=== PATIENT | female | born 1935 | race Caucasian/White ===

== ENCOUNTER 2017-12-19 00:54 | Inpatient (IN) | payer MEDICARE, BC ==
[~2017-12-19] VITALS: Ht 152.4 cm; Wt 65.4 kg
[2017-12-19 02:09] LABS: BASOPHILS % (AUTO) 0 % (0-1); EOSINOPHILS % (AUTO) 0 % (0-6); HEMATOCRIT 35.1 % (35.0-45.0); HEMOGLOBIN 12.1 g/dl (12.0-16.0); LYMPHOCYTES # (AUTO) 0.4 X10'3 (1.1-4.8); LYMPHOCYTES % (AUTO) 2.6 % (21-51); MEAN CORPUSCULAR HEMOGLOBIN 31.2 PG (27.0-31.0); MEAN CORPUSCULAR HGB CONC 34.4 % (33.0-36.5); MEAN CORPUSCULAR VOLUME 90.8 FL (78-98); MEAN PLATELET VOLUME 9.4 FL (7.4-10.4); MONOCYTES # (AUTO) 1.6 X10'3 (0-0.9); MONOCYTES % (AUTO) 9.4 % (2-12); NEUTROPHILS # (AUTO) 14.6 X10'3 (1.8-7.7); PLATELET COUNT 187 X10'3 (140-440); RED BLOOD COUNT 3.87 X10'6 (4.20-5.60); RED CELL DISTRIBUTION WIDTH 14.9 % (11.5-14.5); WHITE BLOOD COUNT 16.6 X10'3 (4.5-11.0)
[2017-12-19 02:19] LABS: PARTIAL THROMBOPLASTIN TIME 24 SECONDS (22-32); PROTHROMBIN TIME 10.2 SECONDS (9.0-12.0)
[2017-12-19 02:24] LABS: ALANINE AMINOTRANSFERASE 52 U/L (12-78); ALBUMIN 3.2 G/DL (3.4-5.0); ALKALINE PHOSPHATASE 110 IU/L (46-116); ANION GAP 9 (8-16); ASPARTATE AMINO TRANSFERASE 42 U/L (10-37); BILIRUBIN,TOTAL 0.7 MG/DL (0.1-1.0); BLOOD UREA NITROGEN 35 MG/DL (7-18); CALCIUM 9.8 MG/DL (8.5-10.1); CHLORIDE 103 MMOL/L (99-107); CREATININE 1.46 MG/DL (0.40-0.90); GLUCOSE 139 MG/DL (70-104); POTASSIUM 4.4 MMOL/L (3.5-5.1); SODIUM 140 MMOL/L (135-145); TOTAL PROTEIN 6.5 G/DL (6.4-8.2); eGFR 34 ML/MIN
[2017-12-19 02:57] LABS: CLARITY,URINE CLOUDY (Clear); COLOR,URINE YELLOW (Yellow); GLUCOSE, URINE NEGATIVE (Neg); KETONES,URINE TRACE mg/dl (Neg); LEUKOCYTE ESTERASE ,URINE SMALL (Neg); NITRITES, URINE POSITIVE (Neg); OCCULT BLOOD,URINE MODERATE (Neg); PH,URINE 5.5 (4.8-8.0); PROTEIN,URINE 100 mg/dl (Neg); UROBILINOGEN,URINE 0.2 E.U/dL (0.2-1.0)
[2017-12-19 02:59] LABS: UA COLLECTION TYPE STRAIGHT CATH
[2017-12-19 03:20] LABS: BACTERIA,URINE 3+ /HPF (Neg); MUCUS STRANDS NONE SEEN /LPF (Neg); SQUAMOUS EPITHELIAL CELL,UR NONE SEEN /LPF (FEW); WBC,URINE 50-100 /HPF (0-4)
[2017-12-19] MEDS ORDERED: normal saline 1000ML IV soln IVB ONE (03:25)
[2017-12-19] MEDS ORDERED: CefTRIAXone 2gm/D5W 50ml 50 ML IV ONE (03:25)
[2017-12-19] MEDS ORDERED: mag hydrox/Alum hydrox/simeth 30ml oral suspension PO PRN (05:10)
[2017-12-19] MEDS ORDERED: acetaminophen 325mg tablet PO PRN (05:10)
[2017-12-19] MEDS ORDERED: ondansetron/PF 4mg/2ml inj IV PRN (05:10)
[2017-12-19] MEDS ORDERED: magnesium hydroxide 30ml (MOM) UD suspension PO PRN (05:10)
[2017-12-19] MEDS ORDERED: AMOX-422 PO (05:47)
[2017-12-19 06:23] LABS: TOTAL CELLS COUNTED 100
[2017-12-19 06:24] LABS: ANISOCYTOSIS FEW; PLATELET ESTIMATE NORMAL; POLYCHROMASIA FEW
[2017-12-19] MEDS ORDERED: CLOP75TA15 PO (06:30)
[2017-12-19] MEDS ORDERED: HYDR-565 PO (06:30)
[2017-12-19] MEDS ORDERED: DULO-31 PO (06:30)
[2017-12-19] MEDS ORDERED: LACT1CAP65 PO (06:30)
[2017-12-19] MEDS ORDERED: SPIR50TA5 PO (06:30)
[2017-12-19] MEDS ORDERED: PANT20TA3 PO (06:30)
[2017-12-19] MEDS ORDERED: LEVO100T PO (06:30)
[2017-12-19] MEDS ORDERED: ESCI20TA PO (06:30)
[2017-12-19] MEDS ORDERED: LOSA50TA3 PO (06:30)
[2017-12-19] MEDS ORDERED: MONT10TA21 PO (06:30)
[2017-12-19] MEDS ORDERED: POTA10CA44 PO (06:30)
[2017-12-19] MEDS ORDERED: ALPR-624 PO (06:30)
[2017-12-19] MEDS ORDERED: DILT180C95 PO (06:30)
[2017-12-19] MEDS ORDERED: SYN0.088T PO (06:30)
[2017-12-19] MEDS ORDERED: TURM538C PO (06:30)
[2017-12-19] MEDS ORDERED: CHOL200013 (06:30)
[2017-12-19] MEDS ORDERED: potassium chloride 10mEq CAPSULE.SA PO SCH (08:00)
[2017-12-19] MEDS: normal saline 1000ml 1,000 ML IV SCH ×2 (10:01→18:48)
[2017-12-19] MEDS: clopidogrel 75mg tablet PO SCH (10:01)
[2017-12-19] MEDS: diltiazem CD 180mg cap (once-daily) PO SCH (10:02)
[2017-12-19] MEDS: lactobacillus rhamnosus 10,000 MMU CELLS/CAPSULE PO SCH (10:02)
[2017-12-19] MEDS: levoTHYROXINE 25mcg tablet PO SCH (10:02)
[2017-12-19] MEDS: montelukast 10mg tablet PO SCH (10:03)
[2017-12-19] MEDS: citalopram 20mg tablet PO SCH (10:04)
[2017-12-19] MEDS: pantoprazole 40mg Tablet.DR PO SCH ×2 (10:04→19:20)
[2017-12-19] MEDS: duloxetine 30mg CAPSULE.DR PO SCH (10:28)
[2017-12-19] MEDS: losartan 50mg tablet PO SCH (10:29)
[2017-12-19] MEDS: levoTHYROXINE 88mcg tablet PO SCH (10:30)
[2017-12-19] MEDS: spironolactone 50 MG tablet PO SCH (15:00)
[2017-12-19] MEDS: HYDROcodone/acetaminophen 5mg/325mg tablet PO PRN ×2 (15:39→22:23)
[2017-12-19] MEDS: potassium chloride 10mEq ER tablet PO SCH (19:24)
[2017-12-19 20:00] VITALS: BP 140/50
[2017-12-20] VITALS: BP 143/65
[2017-12-20] MEDS: HYDROcodone/acetaminophen 5mg/325mg tablet PO PRN ×4 (05:30→23:44)
[2017-12-20 07:00] VITALS: BP 150/75
[2017-12-20 07:10] LABS: BASOPHILS % (AUTO) 0.2 % (0-1); EOSINOPHILS # (AUTO) 0.1 X10'3 (0-0.9); EOSINOPHILS % (AUTO) 1.1 % (0-6); HEMATOCRIT 33.6 % (35.0-45.0); HEMOGLOBIN 11.3 g/dl (12.0-16.0); LYMPHOCYTES # (AUTO) 0.5 X10'3 (1.1-4.8); LYMPHOCYTES % (AUTO) 4.9 % (21-51); MEAN CORPUSCULAR HEMOGLOBIN 30.6 PG (27.0-31.0); MEAN CORPUSCULAR HGB CONC 33.6 % (33.0-36.5); MEAN CORPUSCULAR VOLUME 91.3 FL (78-98); MEAN PLATELET VOLUME 9.4 FL (7.4-10.4); MONOCYTES # (AUTO) 1.1 X10'3 (0-0.9); MONOCYTES % (AUTO) 10.8 % (2-12); NEUTROPHILS # (AUTO) 8.8 X10'3 (1.8-7.7); PLATELET COUNT 167 X10'3 (140-440); RED BLOOD COUNT 3.68 X10'6 (4.20-5.60); RED CELL DISTRIBUTION WIDTH 14.9 % (11.5-14.5); WHITE BLOOD COUNT 10.6 X10'3 (4.5-11.0)
[2017-12-20 07:35] LABS: ALANINE AMINOTRANSFERASE 35 U/L (12-78); ALBUMIN 2.6 G/DL (3.4-5.0); ALBUMIN/GLOBULIN RATIO 0.8 (1.1-1.5); ALKALINE PHOSPHATASE 88 IU/L (46-116); ANION GAP 13 (8-16); ASPARTATE AMINO TRANSFERASE 17 U/L (10-37); BILIRUBIN,TOTAL 0.5 MG/DL (0.1-1.0); BLOOD UREA NITROGEN 33 MG/DL (7-18); CALCIUM 8.8 MG/DL (8.5-10.1); CHLORIDE 105 MMOL/L (99-107); CREATININE 1.22 MG/DL (0.40-0.90); GLUCOSE 91 MG/DL (70-104); MAGNESIUM 1.8 MG/DL (1.5-2.4); PHOSPHORUS 2.8 MG/DL (2.3-4.5); POTASSIUM 4.1 MMOL/L (3.5-5.1); SODIUM 142 MMOL/L (135-145); TOTAL CARBON DIOXIDE 24.4 MMOL/L (24-32); TOTAL PROTEIN 5.8 G/DL (6.4-8.2); eGFR 42 ML/MIN
[2017-12-20] MEDS: duloxetine 30mg CAPSULE.DR PO SCH (08:11)
[2017-12-20] MEDS: clopidogrel 75mg tablet PO SCH (08:11)
[2017-12-20] MEDS: montelukast 10mg tablet PO SCH (08:11)
[2017-12-20] MEDS: levoTHYROXINE 88mcg tablet PO SCH (08:11)
[2017-12-20] MEDS: spironolactone 50 MG tablet PO SCH (08:12)
[2017-12-20] MEDS: CefTRIAXone/D5W-Rocephin 1gm 50 ML IV SCH (08:12)
[2017-12-20] MEDS: losartan 50mg tablet PO SCH (08:12)
[2017-12-20] MEDS: lactobacillus rhamnosus 10,000 MMU CELLS/CAPSULE PO SCH (08:12)
[2017-12-20] MEDS: potassium chloride 10mEq ER tablet PO SCH ×2 (08:12→19:18)
[2017-12-20] MEDS: levoTHYROXINE 25mcg tablet PO SCH (08:12)
[2017-12-20] MEDS: pantoprazole 40mg Tablet.DR PO SCH ×2 (08:12→19:17)
[2017-12-20] MEDS: diltiazem CD 180mg cap (once-daily) PO SCH (08:12)
[2017-12-20] MEDS: citalopram 20mg tablet PO SCH (08:12)
[2017-12-20 11:00] VITALS: BP 129/69
[2017-12-20 20:00] VITALS: BP 135/57
[2017-12-21] VITALS: BP 141/68
[2017-12-21] MEDS: normal saline 1000ml 1,000 ML IV SCH (05:10)
[2017-12-21 07:18] LABS: BASOPHILS % (AUTO) 0.3 % (0-1); EOSINOPHILS # (AUTO) 0.2 X10'3 (0-0.9); EOSINOPHILS % (AUTO) 2.9 % (0-6); HEMATOCRIT 33.5 % (35.0-45.0); HEMOGLOBIN 11.2 g/dl (12.0-16.0); LYMPHOCYTES # (AUTO) 0.7 X10'3 (1.1-4.8); LYMPHOCYTES % (AUTO) 9.4 % (21-51); MEAN CORPUSCULAR HEMOGLOBIN 30.2 PG (27.0-31.0); MEAN CORPUSCULAR HGB CONC 33.4 % (33.0-36.5); MEAN CORPUSCULAR VOLUME 90.5 FL (78-98); MEAN PLATELET VOLUME 8.7 FL (7.4-10.4); MONOCYTES # (AUTO) 1.1 X10'3 (0-0.9); NEUTROPHILS # (AUTO) 5.6 X10'3 (1.8-7.7); NEUTROPHILS % (AUTO) 73.4 % (42-75); PLATELET COUNT 189 X10'3 (140-440); RED BLOOD COUNT 3.71 X10'6 (4.20-5.60); RED CELL DISTRIBUTION WIDTH 14.9 % (11.5-14.5); WHITE BLOOD COUNT 7.7 X10'3 (4.5-11.0)
[2017-12-21] MEDS: citalopram 20mg tablet PO SCH (07:48)
[2017-12-21] MEDS: CefTRIAXone/D5W-Rocephin 1gm 50 ML IV SCH (07:48)
[2017-12-21] MEDS: levoTHYROXINE 88mcg tablet PO SCH (07:48)
[2017-12-21] MEDS: clopidogrel 75mg tablet PO SCH (07:49)
[2017-12-21] MEDS: losartan 50mg tablet PO SCH (07:49)
[2017-12-21] MEDS: lactobacillus rhamnosus 10,000 MMU CELLS/CAPSULE PO SCH (07:49)
[2017-12-21] MEDS: spironolactone 50 MG tablet PO SCH (07:49)
[2017-12-21] MEDS: duloxetine 30mg CAPSULE.DR PO SCH (07:49)
[2017-12-21] MEDS: montelukast 10mg tablet PO SCH (07:49)
[2017-12-21] MEDS: potassium chloride 10mEq ER tablet PO SCH (07:49)
[2017-12-21] MEDS: diltiazem CD 180mg cap (once-daily) PO SCH (07:49)
[2017-12-21] MEDS: pantoprazole 40mg Tablet.DR PO SCH (07:49)
[2017-12-21] MEDS: levoTHYROXINE 25mcg tablet PO SCH (07:49)
[2017-12-21] MEDS: HYDROcodone/acetaminophen 5mg/325mg tablet PO PRN ×2 (07:50→13:37)
[2017-12-21 07:51] LABS: ALANINE AMINOTRANSFERASE 29 U/L (12-78); ALBUMIN 2.6 G/DL (3.4-5.0); ALBUMIN/GLOBULIN RATIO 0.8 (1.1-1.5); ALKALINE PHOSPHATASE 84 IU/L (46-116); ANION GAP 11 (8-16); ASPARTATE AMINO TRANSFERASE 13 U/L (10-37); BILIRUBIN,TOTAL 0.4 MG/DL (0.1-1.0); BLOOD UREA NITROGEN 28 MG/DL (7-18); BUN/CREATININE RATIO 23.3 (6.6-38.0); CHLORIDE 106 MMOL/L (99-107); GLUCOSE 92 MG/DL (70-104); MAGNESIUM 1.8 MG/DL (1.5-2.4); PHOSPHORUS 3.2 MG/DL (2.3-4.5); SODIUM 143 MMOL/L (135-145); TOTAL CARBON DIOXIDE 26.4 MMOL/L (24-32); TOTAL PROTEIN 5.8 G/DL (6.4-8.2); eGFR 43 ML/MIN
[2017-12-21 08:00] VITALS: BP 116/68
[2017-12-21] MEDS ORDERED: CIPR-230 PO (12:50)
== END 2017-12-21 13:00 | disposition home health service (06) | DRG 871 ==
LOC: ER 00:54 → ED HOLD 05:10 → SUR 3N 18:24
PROVIDERS: ADMIT Emergency Medicine; ATTEND Family Medicine
DX: A41.9 Sepsis, unspecified organism (principal); G93.41 Metabolic encephalopathy; N17.9 Acute kidney failure, unspecified; N39.0 Urinary tract infection, site not specified; J44.9 Chronic obstructive pulmonary disease, unspecified; I48.91 Unspecified atrial fibrillation; I12.9 Hypertensive chronic kidney disease with stage 1 through stage 4 chronic kidney disease, or unspecified chronic kidney disease; N18.9 Chronic kidney disease, unspecified; E03.9 Hypothyroidism, unspecified; R32 Unspecified urinary incontinence; B96.20 Unspecified Escherichia coli [E. coli] as the cause of diseases classified elsewhere; F32.9 Major depressive disorder, single episode, unspecified; F41.9 Anxiety disorder, unspecified; M54.9 Dorsalgia, unspecified; G89.29 Other chronic pain; Z99.81 Dependence on supplemental oxygen; Z72.89 Other problems related to lifestyle
CPT/HCPCS: 36415; 71045; 80053; 81001; 83605; 83735; 83880; 84100; 84145; 84443; 84484; 85025; 85610; 85730; 87040; 87070; 87077; 87088; 87186; 93005; 96365; 97162; 99285; A4310; J0696; J7030

== ENCOUNTER 2018-01-09 09:31 | Emergency (ER) | payer MEDICARE, BC ==
[~2018-01-09] VITALS: Ht 539.5 cm; Wt 64.5 kg
[~2018-01-09 09:31] MED LIST: ALPR-624 PO; CHOL200013; CIPR-230 PO; CLOP75TA15 PO; DILT180C95 PO; DULO-31 PO; ESCI20TA PO; HYDR-565 PO; LACT1CAP65 PO; LEVO100T PO; LOSA50TA3 PO; MONT10TA21 PO; PANT20TA3 PO; POTA10CA44 PO; SPIR50TA5 PO; SYN0.088T PO; TURM538C PO
[2018-01-09 09:35] VITALS: BP 148/76
[2018-01-09] MEDS ORDERED: normal saline 1000ML IV soln IVB ONE (09:45)
[2018-01-09 10:06] LABS: BASOPHILS % (AUTO) 0.2 % (0-1); EOSINOPHILS # (AUTO) 0.3 X10'3 (0-0.9); EOSINOPHILS % (AUTO) 2.6 % (0-6); HEMATOCRIT 39.4 % (35.0-45.0); HEMOGLOBIN 13.3 g/dl (12.0-16.0); LYMPHOCYTES # (AUTO) 1.4 X10'3 (1.1-4.8); LYMPHOCYTES % (AUTO) 12.2 % (21-51); MEAN CORPUSCULAR HEMOGLOBIN 30.7 PG (27.0-31.0); MEAN CORPUSCULAR HGB CONC 33.7 % (33.0-36.5); MEAN CORPUSCULAR VOLUME 90.9 FL (78-98); MEAN PLATELET VOLUME 8.4 FL (7.4-10.4); MONOCYTES # (AUTO) 0.8 X10'3 (0-0.9); MONOCYTES % (AUTO) 6.8 % (2-12); NEUTROPHILS # (AUTO) 9.1 X10'3 (1.8-7.7); NEUTROPHILS % (AUTO) 78.2 % (42-75); PLATELET COUNT 326 X10'3 (140-440); RED BLOOD COUNT 4.33 X10'6 (4.20-5.60); RED CELL DISTRIBUTION WIDTH 14.8 % (11.5-14.5); WHITE BLOOD COUNT 11.6 X10'3 (4.5-11.0)
[2018-01-09 10:19] LABS: PARTIAL THROMBOPLASTIN TIME 24 SECONDS (22-32)
[2018-01-09 10:25] LABS: CLARITY,URINE CLEAR (Clear); COLOR,URINE YELLOW (Yellow); GLUCOSE, URINE NEGATIVE (Neg); KETONES,URINE NEGATIVE (Neg); LEUKOCYTE ESTERASE ,URINE NEGATIVE (Neg); NITRITES, URINE NEGATIVE (Neg); OCCULT BLOOD,URINE TRACE-LYSED (Neg); PROTEIN,URINE NEGATIVE (Neg); UA COLLECTION TYPE STRAIGHT CATH; UROBILINOGEN,URINE 0.2 E.U/dL (0.2-1.0)
[2018-01-09 10:28] LABS: ALANINE AMINOTRANSFERASE 20 U/L (12-78); ALBUMIN 3.6 G/DL (3.4-5.0); ALBUMIN/GLOBULIN RATIO 1.1 (1.1-1.5); ALKALINE PHOSPHATASE 97 IU/L (46-116); ANION GAP 9 (8-16); ASPARTATE AMINO TRANSFERASE 19 U/L (10-37); BILIRUBIN,TOTAL 0.8 MG/DL (0.1-1.0); BLOOD UREA NITROGEN 26 MG/DL (7-18); BUN/CREATININE RATIO 23.2 (6.6-38.0); CALCIUM 9.6 MG/DL (8.5-10.1); CHLORIDE 103 MMOL/L (99-107); CREATININE 1.12 MG/DL (0.40-0.90); GLUCOSE 102 MG/DL (70-104); POTASSIUM 4.3 MMOL/L (3.5-5.1); SODIUM 140 MMOL/L (135-145); TOTAL PROTEIN 6.8 G/DL (6.4-8.2); eGFR 47 ML/MIN
[2018-01-09 10:34] LABS: BACTERIA,URINE NONE SEEN /HPF (Neg); MUCUS STRANDS NONE SEEN /LPF (Neg); RBC,URINE 0-2 /HPF (0-2); SQUAMOUS EPITHELIAL CELL,UR NONE SEEN /LPF (FEW); WBC,URINE NONE SEEN /HPF (0-4)
[2018-01-09] MEDS ORDERED: PHEN-873 PO (10:55)
== END 2018-01-09 11:17 | disposition home or self-care (01) ==
LOC: ER 09:32
DX: R53.1 Weakness (principal); R39.15 Urgency of urination; R79.1 Abnormal coagulation profile; E03.9 Hypothyroidism, unspecified; G89.29 Other chronic pain; Z60.2 Problems related to living alone; Z79.899 Other long term (current) drug therapy
CPT/HCPCS: 36415; 71045; 80053; 81001; 84484; 85025; 85610; 85730; 93005; 99285; J7030

== ENCOUNTER 2018-02-04 17:13 | Emergency (ER) | payer MEDICARE, BC ==
[~2018-02-04] VITALS: Ht 152.4 cm; Wt 64.5 kg
[~2018-02-04 17:13] MED LIST changes: -CIPR-230 PO; +PHEN-873 PO
[2018-02-04] MEDS ORDERED: normal saline 1000ML IV soln IV ONE (17:40)
[2018-02-04 17:58] LABS: BASOPHILS # (AUTO) 0.1 X10'3 (0-0.2); BASOPHILS % (AUTO) 0.6 % (0-1); EOSINOPHILS # (AUTO) 0.3 X10'3 (0-0.9); EOSINOPHILS % (AUTO) 2.2 % (0-6); HEMATOCRIT 42.3 % (35.0-45.0); HEMOGLOBIN 14.1 g/dl (12.0-16.0); LYMPHOCYTES # (AUTO) 1.8 X10'3 (1.1-4.8); LYMPHOCYTES % (AUTO) 15.8 % (21-51); MEAN CORPUSCULAR HEMOGLOBIN 30.3 PG (27.0-31.0); MEAN CORPUSCULAR HGB CONC 33.5 % (33.0-36.5); MEAN CORPUSCULAR VOLUME 90.6 FL (78-98); MEAN PLATELET VOLUME 9.1 FL (7.4-10.4); NEUTROPHILS # (AUTO) 8.3 X10'3 (1.8-7.7); NEUTROPHILS % (AUTO) 72.4 % (42-75); PLATELET COUNT 318 X10'3 (140-440); RED BLOOD COUNT 4.67 X10'6 (4.20-5.60); RED CELL DISTRIBUTION WIDTH 13.4 % (11.5-14.5); WHITE BLOOD COUNT 11.5 X10'3 (4.5-11.0)
[2018-02-04] MEDS ORDERED: morphine 4 MG/ML inj SYRINge IV ONE (18:00)
[2018-02-04 18:15] LABS: ALANINE AMINOTRANSFERASE 26 U/L (12-78); ALBUMIN 3.6 G/DL (3.4-5.0); ALBUMIN/GLOBULIN RATIO 1.2 (1.1-1.5); ALKALINE PHOSPHATASE 110 IU/L (46-116); ANION GAP 11 (8-16); ASPARTATE AMINO TRANSFERASE 14 U/L (10-37); BILIRUBIN,TOTAL 0.8 MG/DL (0.1-1.0); BLOOD UREA NITROGEN 35 MG/DL (7-18); BUN/CREATININE RATIO 25.5 (6.6-38.0); CALCIUM 9.6 MG/DL (8.5-10.1); CHLORIDE 101 MMOL/L (99-107); CREATININE 1.37 MG/DL (0.40-0.90); GLUCOSE 109 MG/DL (70-104); POTASSIUM 4.4 MMOL/L (3.5-5.1); SODIUM 137 MMOL/L (135-145); TOTAL CARBON DIOXIDE 25.2 MMOL/L (24-32); TOTAL PROTEIN 6.7 G/DL (6.4-8.2); eGFR 37 ML/MIN
[2018-02-04 19:04] LABS: CLARITY,URINE SLIGHTLY CLOUDY (Clear); COLOR,URINE YELLOW (Yellow); GLUCOSE, URINE NEGATIVE (Neg); KETONES,URINE 15 mg/dl (Neg); LEUKOCYTE ESTERASE ,URINE SMALL (Neg); NITRITES, URINE NEGATIVE (Neg); OCCULT BLOOD,URINE TRACE-INTACT (Neg); PROTEIN,URINE NEGATIVE (Neg); UROBILINOGEN,URINE 0.2 E.U/dL (0.2-1.0)
[2018-02-04 19:10] LABS: UA COLLECTION TYPE STRAIGHT CATH
[2018-02-04 19:12] LABS: WBC,URINE 30-50 /HPF (0-4)
[2018-02-04 19:13] LABS: BACTERIA,URINE 4+ /HPF (Neg); SQUAMOUS EPITHELIAL CELL,UR NONE SEEN /LPF (FEW)
[2018-02-04] MEDS ORDERED: LEVO500T2 PO (19:18)
[2018-02-04] MEDS ORDERED: levoFLOXACIN 250mg tablet PO ONE (19:20)
[2018-02-04] MEDS ORDERED: HYDR-569 PO (19:22)
[2018-02-04 19:33] VITALS: BP 166/93
== END 2018-02-04 19:41 | disposition home or self-care (01) ==
LOC: ER 17:13
DX: F11.23 Opioid dependence with withdrawal (principal); N39.0 Urinary tract infection, site not specified; I10 Essential (primary) hypertension; J44.9 Chronic obstructive pulmonary disease, unspecified; E03.9 Hypothyroidism, unspecified; G89.29 Other chronic pain; F17.200 Nicotine dependence, unspecified, uncomplicated; Z98.890 Other specified postprocedural states; Z90.710 Acquired absence of both cervix and uterus; Z60.2 Problems related to living alone; Z79.899 Other long term (current) drug therapy
CPT/HCPCS: 36415; 80053; 81001; 83605; 84145; 85025; 87040; 87077; 87088; 87186; 93005; 96374; 99291; J2270; J7030

== ENCOUNTER 2018-05-08 12:57 | Inpatient (IN) | payer MEDICARE, BC ==
[~2018-05-08] VITALS: Ht 152.4 cm; Wt 62.7 kg
[~2018-05-08 12:57] MED LIST changes: +HYDR-4353 PO; +HYDR-4383 PO; -HYDR-565 PO; +PHEN-786 PO; -PHEN-873 PO
[2018-05-08] MEDS ORDERED: normal saline 1000ml 1,000 ML IV ONE ×2 (13:05→14:10)
[2018-05-08 13:26] LABS: BASOPHILS % (AUTO) 0.4 % (0-1); EOSINOPHILS # (AUTO) 0.1 X10'3 (0-0.9); EOSINOPHILS % (AUTO) 1.5 % (0-6); HEMATOCRIT 33.8 % (35.0-45.0); HEMOGLOBIN 11.2 g/dl (12.0-16.0); LYMPHOCYTES # (AUTO) 0.9 X10'3 (1.1-4.8); LYMPHOCYTES % (AUTO) 10.1 % (21-51); MEAN CORPUSCULAR HEMOGLOBIN 29.8 PG (27.0-31.0); MEAN CORPUSCULAR HGB CONC 33.2 % (33.0-36.5); MEAN CORPUSCULAR VOLUME 89.6 FL (78-98); MEAN PLATELET VOLUME 9.2 FL (7.4-10.4); MONOCYTES # (AUTO) 1.1 X10'3 (0-0.9); MONOCYTES % (AUTO) 13.3 % (2-12); NEUTROPHILS # (AUTO) 6.4 X10'3 (1.8-7.7); NEUTROPHILS % (AUTO) 74.7 % (42-75); PLATELET COUNT 198 X10'3 (140-440); RED BLOOD COUNT 3.77 X10'6 (4.20-5.60); RED CELL DISTRIBUTION WIDTH 14.8 % (11.5-14.5); WHITE BLOOD COUNT 8.6 X10'3 (4.5-11.0)
[2018-05-08 13:42] LABS: PARTIAL THROMBOPLASTIN TIME 27 SECONDS (22-32); PROTHROMBIN TIME 10.3 SECONDS (9.0-12.0)
[2018-05-08 13:44] LABS: ALANINE AMINOTRANSFERASE 48 U/L (12-78); ALBUMIN 3.1 G/DL (3.4-5.0); ALBUMIN/GLOBULIN RATIO 1.1 (1.1-1.5); ALKALINE PHOSPHATASE 93 IU/L (46-116); ANION GAP 10 (8-16); ASPARTATE AMINO TRANSFERASE 53 U/L (10-37); BILIRUBIN,TOTAL 0.7 MG/DL (0.1-1.0); BLOOD UREA NITROGEN 32 MG/DL (7-18); BUN/CREATININE RATIO 29.9 (6.6-38.0); CALCIUM 8.8 MG/DL (8.5-10.1); CHLORIDE 106 MMOL/L (99-107); CREATININE 1.07 MG/DL (0.40-0.90); GLUCOSE 100 MG/DL (70-104); POTASSIUM 3.5 MMOL/L (3.5-5.1); SODIUM 144 MMOL/L (135-145); TOTAL CARBON DIOXIDE 28.4 MMOL/L (24-32); eGFR 49 ML/MIN
[2018-05-08] MEDS ORDERED: acetaminophen 325mg tablet PO ONE (13:45)
[2018-05-08 13:51] LABS: MAGNESIUM 1.8 MG/DL (1.5-2.4)
[2018-05-08] MEDS ORDERED: aspirin 325mg tablet PO ONE (14:00)
[2018-05-08] MEDS ORDERED: labetalol 20mg/4ml (5mg/ml) syringe IV ONE (14:20)
[2018-05-08 14:21] LABS: CLARITY,URINE CLEAR (Clear); COLOR,URINE YELLOW (Yellow); GLUCOSE, URINE NEGATIVE (Neg); KETONES,URINE 15 mg/dl (Neg); LEUKOCYTE ESTERASE ,URINE NEGATIVE (Neg); NITRITES, URINE NEGATIVE (Neg); OCCULT BLOOD,URINE SMALL (Neg); PH,URINE 5.5 (4.8-8.0); PROTEIN,URINE TRACE mg/dl (Neg); UROBILINOGEN,URINE 0.2 E.U/dL (0.2-1.0)
[2018-05-08 14:25] LABS: UA COLLECTION TYPE FOLEY CATH
[2018-05-08 14:27] LABS: BACTERIA,URINE FEW /HPF (Neg); COARSE GRANULAR CAST 0-3 /LPF (NEGATIVE); MUCUS STRANDS FEW /LPF (Neg); RBC,URINE 0-2 /HPF (0-2); SQUAMOUS EPITHELIAL CELL,UR FEW /LPF (FEW); WBC CASTS 0-3 /LPF (NEGATIVE); WBC,URINE 0-4 /HPF (0-4)
[2018-05-08] MEDS ORDERED: heparin 25,000 UNIT/250ml bag 250 ML IV SCH (15:29)
[2018-05-08] MEDS ORDERED: heparin 10,000 units/1 ML INJ IV PRN (15:30)
[2018-05-08] MEDS ORDERED: heparin 10,000 units/1 ML INJ IV ONE (15:30)
[2018-05-08] MEDS: normal saline 1000ml 1,000 ML IV SCH (15:41)
[2018-05-08] MEDS ORDERED: ondansetron/PF 4mg/2ml inj IV PRN (15:45)
[2018-05-08] MEDS ORDERED: acetaminophen 325mg tablet PO PRN (15:45)
[2018-05-08] MEDS ORDERED: mag hydrox/Alum hydrox/simeth 30ml oral suspension PO PRN (15:45)
[2018-05-08] MEDS ORDERED: potassium Cl 20 mEq SR tablet PO PRN (15:45)
[2018-05-08] MEDS ORDERED: magnesium 4gm in 100ml NS 100 ML IV PRN (15:45)
[2018-05-08] MEDS ORDERED: potassium Cl 40MEQ/NS 500ml 500 ML IV PRN ×2 (15:45)
[2018-05-08] MEDS ORDERED: magnesium Cl slow-release 64mg tablet PO PRN (15:45)
[2018-05-08] MEDS ORDERED: magnesium 1gm/100ml D5W IVPB 100 ML IV PRN (15:45)
[2018-05-08] MEDS ORDERED: magnesium hydroxide 30ml (MOM) UD suspension PO PRN (15:45)
[2018-05-08] MEDS ORDERED: nitroGLYCERIN 0.4mg SUBLingual tab SL PRN (16:15)
[2018-05-08] MEDS ORDERED: aminophylline 250mg/10ml inj. IV PRN (16:15)
[2018-05-08] MEDS ORDERED: metoprolol tartrate 1mg/ml inj IV PRN (16:15)
[2018-05-08] MEDS ORDERED: regadenoson 0.4mg/5ml syringe IV ONE (16:15)
[2018-05-08] MEDS: aspirin 81mg tab.chew PO SCH (16:25)
[2018-05-08 16:30] VITALS: BP 158/87
[2018-05-08 19:00] VITALS: BP 164/75
[2018-05-08] MEDS: enoxaparin 60mg/0.6ml syringe SUBCUT SCH (19:50)
[2018-05-08] MEDS: pantoprazole 40mg Tablet.DR PO SCH (19:53)
[2018-05-08] MEDS ORDERED: heparin, porcine 5000 units/ml vial SQ SCH (20:00)
[2018-05-08 23:00] VITALS: BP 163/78
[2018-05-09] VITALS (8 sets, daily range): BP systolic 97–187; BP diastolic 62–81
[2018-05-09 03:45] LABS: BASOPHILS % (AUTO) 0.4 % (0-1); EOSINOPHILS # (AUTO) 0.2 X10'3 (0-0.9); EOSINOPHILS % (AUTO) 2.6 % (0-6); HEMATOCRIT 33.4 % (35.0-45.0); HEMOGLOBIN 10.9 g/dl (12.0-16.0); LYMPHOCYTES % (AUTO) 11.3 % (21-51); MEAN CORPUSCULAR HEMOGLOBIN 29.2 PG (27.0-31.0); MEAN CORPUSCULAR HGB CONC 32.5 % (33.0-36.5); MEAN CORPUSCULAR VOLUME 90.1 FL (78-98); MEAN PLATELET VOLUME 9.5 FL (7.4-10.4); MONOCYTES # (AUTO) 1.1 X10'3 (0-0.9); MONOCYTES % (AUTO) 11.8 % (2-12); NEUTROPHILS # (AUTO) 6.7 X10'3 (1.8-7.7); NEUTROPHILS % (AUTO) 73.9 % (42-75); PLATELET COUNT 186 X10'3 (140-440); RED BLOOD COUNT 3.71 X10'6 (4.20-5.60); RED CELL DISTRIBUTION WIDTH 14.6 % (11.5-14.5)
[2018-05-09 04:02] LABS: CHOL/HDL RATIO 3.3 (0.00-4.99); CHOLESTEROL 132 MG/DL (0-200); HDL CHOLESTEROL 40 MG/DL (35-60); LDL CHOLESTEROL 76 MG/DL (50-100); MAGNESIUM 1.7 MG/DL (1.5-2.4); TRIGLYCERIDES 98 MG/DL (20-135)
[2018-05-09] MEDS: HYDROcodone/acetaminophen 5mg/325mg tablet PO PRN ×3 (06:59→20:30)
[2018-05-09] MEDS ORDERED: levoTHYROXINE 25mcg tablet PO SCH (07:30)
[2018-05-09] MEDS: K and/or MAG REPLACEMENT MC SCH (08:00)
[2018-05-09] MEDS: montelukast 10mg tablet PO SCH (08:06)
[2018-05-09] MEDS: diltiazem CD 180mg cap (once-daily) PO SCH (08:09)
[2018-05-09] MEDS: citalopram 20mg tablet PO SCH (08:09)
[2018-05-09] MEDS: losartan 50mg tablet PO SCH (08:10)
[2018-05-09] MEDS: clopidogrel 75mg tablet PO SCH (08:10)
[2018-05-09] MEDS: duloxetine 30mg CAPSULE.DR PO SCH (08:10)
[2018-05-09] MEDS: pantoprazole 40mg Tablet.DR PO SCH ×2 (08:11→19:21)
[2018-05-09] MEDS: aspirin 81mg tab.chew PO SCH (08:13)
[2018-05-09] MEDS: enoxaparin 60mg/0.6ml syringe SUBCUT SCH ×2 (08:13→19:23)
[2018-05-09] MEDS: normal saline 1000ml 1,000 ML IV SCH (09:42)
[2018-05-09] MEDS: metoprolol tartrate 25mg tablet PO SCH ×2 (09:43→19:22)
[2018-05-09] MEDS: atorvastatin 10mg tablet PO SCH (09:43)
[2018-05-09 10:21] LABS: ALBUMIN 2.7 G/DL (3.4-5.0); ANION GAP 9 (8-16); BLOOD UREA NITROGEN 27 MG/DL (7-18); BUN/CREATININE RATIO 27.8 (6.6-38.0); CALCIUM 8.3 MG/DL (8.5-10.1); CHLORIDE 109 MMOL/L (99-107); CREATININE 0.97 MG/DL (0.40-0.90); GLUCOSE 78 MG/DL (70-104); POTASSIUM 3.3 MMOL/L (3.5-5.1); SODIUM 144 MMOL/L (135-145); TOTAL CARBON DIOXIDE 26.2 MMOL/L (24-32); eGFR 55 ML/MIN
[2018-05-09 10:25] LABS: TROPONIN I 0.81 NG/ML (0.0-0.05)
[2018-05-09] MEDS: potassium Cl 20 mEq SR tablet PO PRN ×3 (11:53→20:29)
[2018-05-09] MEDS: potassium Cl 20mEq in NS 1,000 ML IV SCH (16:24)
[2018-05-09] MEDS ORDERED: temazepam 15mg capsule PO PRN (16:40)
[2018-05-10] VITALS (8 sets, daily range): BP systolic 121–181; BP diastolic 60–81
[2018-05-10] MEDS: HYDROcodone/acetaminophen 5mg/325mg tablet PO PRN ×4 (02:49→22:35)
[2018-05-10 07:26] LABS: BASOPHILS % (AUTO) 0.5 % (0-1); EOSINOPHILS # (AUTO) 0.4 X10'3 (0-0.9); EOSINOPHILS % (AUTO) 5.4 % (0-6); HEMATOCRIT 31.3 % (35.0-45.0); HEMOGLOBIN 10.3 g/dl (12.0-16.0); LYMPHOCYTES # (AUTO) 1.2 X10'3 (1.1-4.8); MEAN CORPUSCULAR HEMOGLOBIN 29.8 PG (27.0-31.0); MEAN CORPUSCULAR VOLUME 90.3 FL (78-98); MEAN PLATELET VOLUME 9.5 FL (7.4-10.4); MONOCYTES % (AUTO) 13.4 % (2-12); NEUTROPHILS # (AUTO) 4.7 X10'3 (1.8-7.7); NEUTROPHILS % (AUTO) 64.7 % (42-75); PLATELET COUNT 206 X10'3 (140-440); RED BLOOD COUNT 3.47 X10'6 (4.20-5.60); RED CELL DISTRIBUTION WIDTH 14.9 % (11.5-14.5); WHITE BLOOD COUNT 7.3 X10'3 (4.5-11.0)
[2018-05-10] MEDS: levoTHYROXINE 25mcg tablet PO SCH (07:30)
[2018-05-10 07:40] LABS: ALBUMIN 2.6 G/DL (3.4-5.0); ANION GAP 8 (8-16); BLOOD UREA NITROGEN 29 MG/DL (7-18); BUN/CREATININE RATIO 28.4 (6.6-38.0); CALCIUM 8.5 MG/DL (8.5-10.1); CHLORIDE 111 MMOL/L (99-107); CREATININE 1.02 MG/DL (0.40-0.90); GLUCOSE 83 MG/DL (70-104); POTASSIUM 4.4 MMOL/L (3.5-5.1); SODIUM 143 MMOL/L (135-145); TOTAL CARBON DIOXIDE 24.3 MMOL/L (24-32); eGFR 52 ML/MIN
[2018-05-10] MEDS: K and/or MAG REPLACEMENT MC SCH (08:00)
[2018-05-10] MEDS: diltiazem CD 180mg cap (once-daily) PO SCH (08:47)
[2018-05-10] MEDS: losartan 50mg tablet PO SCH (08:47)
[2018-05-10] MEDS: citalopram 20mg tablet PO SCH (08:47)
[2018-05-10] MEDS: atorvastatin 10mg tablet PO SCH (08:48)
[2018-05-10] MEDS: metoprolol tartrate 25mg tablet PO SCH ×2 (08:48→21:31)
[2018-05-10] MEDS: duloxetine 30mg CAPSULE.DR PO SCH (08:48)
[2018-05-10] MEDS: montelukast 10mg tablet PO SCH (08:49)
[2018-05-10] MEDS: pantoprazole 40mg Tablet.DR PO SCH ×2 (08:49→21:31)
[2018-05-10] MEDS: clopidogrel 75mg tablet PO SCH (08:49)
[2018-05-10] MEDS: enoxaparin 60mg/0.6ml syringe SUBCUT SCH ×2 (08:50→21:32)
[2018-05-10] MEDS: aspirin 81mg tab.chew PO SCH (08:50)
[2018-05-10] MEDS: potassium Cl 20mEq in NS 1,000 ML IV SCH (08:51)
[2018-05-11] MEDS: potassium Cl 20mEq in NS 1,000 ML IV SCH (01:05)
[2018-05-11 03:00] VITALS: BP 167/65
[2018-05-11] MEDS: HYDROcodone/acetaminophen 5mg/325mg tablet PO PRN ×2 (05:09→11:19)
[2018-05-11 06:00] VITALS: BP 162/63
[2018-05-11 06:43] LABS: ALBUMIN 2.6 G/DL (3.4-5.0); ANION GAP 8 (8-16); BLOOD UREA NITROGEN 17 MG/DL (7-18); CALCIUM 8.3 MG/DL (8.5-10.1); CHLORIDE 107 MMOL/L (99-107); GLUCOSE 90 MG/DL (70-104); POTASSIUM 4.1 MMOL/L (3.5-5.1); SODIUM 141 MMOL/L (135-145); TOTAL CARBON DIOXIDE 26.3 MMOL/L (24-32); eGFR 53 ML/MIN
[2018-05-11] MEDS: K and/or MAG REPLACEMENT MC SCH (08:00)
[2018-05-11] MEDS ORDERED: apixaban 5mg tablet PO SCH (08:00)
[2018-05-11] MEDS: diltiazem CD 180mg cap (once-daily) PO SCH (08:30)
[2018-05-11] MEDS: levoTHYROXINE 25mcg tablet PO SCH (08:30)
[2018-05-11] MEDS: citalopram 20mg tablet PO SCH (08:31)
[2018-05-11] MEDS: duloxetine 30mg CAPSULE.DR PO SCH (08:31)
[2018-05-11] MEDS: losartan 50mg tablet PO SCH (08:31)
[2018-05-11] MEDS: atorvastatin 10mg tablet PO SCH (08:32)
[2018-05-11] MEDS: metoprolol tartrate 25mg tablet PO SCH (08:33)
[2018-05-11] MEDS: clopidogrel 75mg tablet PO SCH (08:33)
[2018-05-11] MEDS: aspirin 81mg tab.chew PO SCH (08:33)
[2018-05-11] MEDS: montelukast 10mg tablet PO SCH (08:33)
[2018-05-11] MEDS: pantoprazole 40mg Tablet.DR PO SCH (08:33)
[2018-05-11 11:00] VITALS: BP 189/86
[2018-05-11 11:30] VITALS: BP 156/90
[2018-05-11 15:00] VITALS: BP 133/58
== END 2018-05-11 16:22 | DRG 280 ==
LOC: ER 12:58 → PCU 3S 15:41 → CMPBEDREQ 17:36
PROVIDERS: ADMIT Internal Medicine; ATTEND Internal Medicine
DX: I21.A1 Myocardial infarction type 2 (principal); G93.41 Metabolic encephalopathy; J96.10 Chronic respiratory failure, unspecified whether with hypoxia or hypercapnia; N17.9 Acute kidney failure, unspecified; I27.20 Pulmonary hypertension, unspecified; I48.0 Paroxysmal atrial fibrillation; J44.9 Chronic obstructive pulmonary disease, unspecified; E03.9 Hypothyroidism, unspecified; Z60.2 Problems related to living alone; F32.9 Major depressive disorder, single episode, unspecified; E86.0 Dehydration; M54.9 Dorsalgia, unspecified; F41.9 Anxiety disorder, unspecified; G89.29 Other chronic pain; I10 Essential (primary) hypertension; M20.41 Other hammer toe(s) (acquired), right foot; Z99.81 Dependence on supplemental oxygen; Z90.711 Acquired absence of uterus with remaining cervical stump; Z90.49 Acquired absence of other specified parts of digestive tract; Z79.899 Other long term (current) drug therapy; Z79.82 Long term (current) use of aspirin; Z86.79 Personal history of other diseases of the circulatory system
CPT/HCPCS: 36415; 70450; 71045; 73660; 80048; 80053; 80061; 81001; 82140; 83605; 83735; 83880; 84145; 84443; 84484; 85025; 85610; 85730; 87040; 87070; 93005; 93306; 96361; 96374; 97110; 97116; 97163; 99285; G0378; J1644; J1650; J3490; J7030

== ENCOUNTER 2018-06-17 07:01 | Inpatient (IN) | payer MEDICARE, BC ==
[~2018-06-17] VITALS: Ht 172.7 cm; Wt 62.9 kg
[~2018-06-17 07:01] MED LIST changes: -ALPR-624 PO; -HYDR-4353 PO; -LACT1CAP65 PO; -PHEN-786 PO; -SYN0.088T PO; -TURM538C PO
[2018-06-17] MEDS ORDERED: methylPREDNISolone sod succ 125mg/2ml vial IV ONE (07:05)
[2018-06-17] MEDS ORDERED: albuterol 2.5 MG/3 ML nebule NEB ONE (07:05)
[2018-06-17 08:03] LABS: BASOPHILS % (AUTO) 0.2 % (0-1); EOSINOPHILS # (AUTO) 0.3 X10'3 (0-0.9); EOSINOPHILS % (AUTO) 1.7 % (0-6); HEMATOCRIT 32.1 % (35.0-45.0); HEMOGLOBIN 10.5 g/dl (12.0-16.0); LYMPHOCYTES # (AUTO) 2.2 X10'3 (1.1-4.8); LYMPHOCYTES % (AUTO) 14.7 % (21-51); MEAN CORPUSCULAR HEMOGLOBIN 29.8 PG (27.0-31.0); MEAN CORPUSCULAR HGB CONC 32.7 % (33.0-36.5); MEAN CORPUSCULAR VOLUME 91.2 FL (78-98); MEAN PLATELET VOLUME 9.3 FL (7.4-10.4); MONOCYTES # (AUTO) 1.1 X10'3 (0-0.9); MONOCYTES % (AUTO) 7.8 % (2-12); NEUTROPHILS # (AUTO) 11.2 X10'3 (1.8-7.7); NEUTROPHILS % (AUTO) 75.6 % (42-75); PLATELET COUNT 266 X10'3 (140-440); RED BLOOD COUNT 3.53 X10'6 (4.20-5.60); RED CELL DISTRIBUTION WIDTH 14.9 % (11.5-14.5); WHITE BLOOD COUNT 14.8 X10'3 (4.5-11.0)
[2018-06-17 08:12] LABS: ALANINE AMINOTRANSFERASE 42 U/L (12-78); ALBUMIN 3.3 G/DL (3.4-5.0); ALBUMIN/GLOBULIN RATIO 1.3 (1.1-1.5); ALKALINE PHOSPHATASE 118 IU/L (46-116); ANION GAP 8 (8-16); ASPARTATE AMINO TRANSFERASE 25 U/L (10-37); BILIRUBIN,TOTAL 0.6 MG/DL (0.1-1.0); BLOOD UREA NITROGEN 34 MG/DL (7-18); BUN/CREATININE RATIO 32.1 (6.6-38.0); CALCIUM 8.3 MG/DL (8.5-10.1); CHLORIDE 107 MMOL/L (99-107); CREATININE 1.06 MG/DL (0.40-0.90); GLUCOSE 98 MG/DL (70-104); POTASSIUM 3.7 MMOL/L (3.5-5.1); SODIUM 144 MMOL/L (135-145); TOTAL CARBON DIOXIDE 29.5 MMOL/L (24-32); TOTAL PROTEIN 5.9 G/DL (6.4-8.2); eGFR 50 ML/MIN
[2018-06-17] MEDS ORDERED: furosemide 40mg/4ml inj IV ONE (08:30)
[2018-06-17 08:37] LABS: INR 1.1 INR; PARTIAL THROMBOPLASTIN TIME 24 SECONDS (22-32); PROTHROMBIN TIME 10.9 SECONDS (9.0-12.0)
[2018-06-17] MEDS ORDERED: METO25TA6 PO (08:52)
[2018-06-17] MEDS ORDERED: DOCU-22 PO (08:52)
[2018-06-17] MEDS ORDERED: APIX5TAB3 PO (08:52)
[2018-06-17] MEDS ORDERED: DICL100G15 PO (08:52)
[2018-06-17] MEDS ORDERED: PRAV40TA3 PO (08:52)
[2018-06-17] MEDS ORDERED: ASPI-1130 PO (08:52)
[2018-06-17] MEDS ORDERED: CITA-278 PO (08:52)
[2018-06-17] MEDS ORDERED: MAGN70TA2 PO (08:52)
[2018-06-17] MEDS ORDERED: magnesium 4gm in 100ml NS 100 ML IV PRN (08:55)
[2018-06-17] MEDS ORDERED: acetaminophen 325mg tablet PO PRN ×2 (08:55)
[2018-06-17] MEDS ORDERED: magnesium Cl slow-release 64mg tablet PO PRN (08:55)
[2018-06-17] MEDS ORDERED: magnesium hydroxide 30ml (MOM) UD suspension PO PRN (08:55)
[2018-06-17] MEDS ORDERED: morphine 2 MG/ML inj. syringe IV PRN ×2 (08:55)
[2018-06-17] MEDS ORDERED: mag hydrox/Alum hydrox/simeth 30ml oral suspension PO PRN (08:55)
[2018-06-17] MEDS ORDERED: potassium Cl 40MEQ/NS 500ml 500 ML IV PRN ×2 (08:55)
[2018-06-17] MEDS ORDERED: potassium Cl 20 mEq SR tablet PO PRN (08:55)
[2018-06-17] MEDS ORDERED: HYDROcodone/acetaminophen 5mg/325mg tablet PO PRN (08:55)
[2018-06-17] MEDS ORDERED: ondansetron/PF 4mg/2ml inj IV PRN (08:55)
[2018-06-17] MEDS ORDERED: ipratropium/albuterol 3ml nebule NEB PRN (10:25)
[2018-06-17] MEDS: ipratropium/albuterol 3ml nebule NEB SCH ×4 (11:43→23:50)
[2018-06-17] MEDS: HYDROcodone/acetaminophen 10/325mg tab PO PRN ×2 (16:07→20:39)
[2018-06-17] MEDS ORDERED: aspirin 81mg tab.chew PO ONE (19:55)
[2018-06-17] MEDS: apixaban 5mg tablet PO SCH (20:38)
[2018-06-17] MEDS: furosemide 20 MG/2 ML vial IV SCH (20:38)
[2018-06-17] MEDS: citalopram 20mg tablet PO SCH (20:39)
[2018-06-17 21:00] VITALS: BP 127/70
[2018-06-18] VITALS: BP 131/67
[2018-06-18] MEDS: ipratropium/albuterol 3ml nebule NEB SCH ×6 (03:28→23:25)
[2018-06-18 05:50] LABS: BASOPHILS % (AUTO) 0 % (0-1); EOSINOPHILS # (AUTO) 0.1 X10'3 (0-0.9); EOSINOPHILS % (AUTO) 1.3 % (0-6); HEMATOCRIT 30.3 % (35.0-45.0); HEMOGLOBIN 10.1 g/dl (12.0-16.0); LYMPHOCYTES # (AUTO) 0.6 X10'3 (1.1-4.8); LYMPHOCYTES % (AUTO) 6.4 % (21-51); MEAN CORPUSCULAR HGB CONC 33.3 % (33.0-36.5); MEAN CORPUSCULAR VOLUME 90.2 FL (78-98); MEAN PLATELET VOLUME 9.9 FL (7.4-10.4); MONOCYTES # (AUTO) 0.9 X10'3 (0-0.9); MONOCYTES % (AUTO) 9.8 % (2-12); NEUTROPHILS # (AUTO) 7.7 X10'3 (1.8-7.7); NEUTROPHILS % (AUTO) 82.5 % (42-75); PLATELET COUNT 216 X10'3 (140-440); RED BLOOD COUNT 3.36 X10'6 (4.20-5.60); RED CELL DISTRIBUTION WIDTH 14.4 % (11.5-14.5); WHITE BLOOD COUNT 9.4 X10'3 (4.5-11.0)
[2018-06-18 06:04] LABS: ALBUMIN 3.2 G/DL (3.4-5.0); ANION GAP 10 (8-16); BLOOD UREA NITROGEN 43 MG/DL (7-18); BUN/CREATININE RATIO 34.7 (6.6-38.0); CALCIUM 8.7 MG/DL (8.5-10.1); CHLORIDE 106 MMOL/L (99-107); CREATININE 1.24 MG/DL (0.40-0.90); GLUCOSE 132 MG/DL (70-104); POTASSIUM 3.2 MMOL/L (3.5-5.1); SODIUM 146 MMOL/L (135-145); TOTAL CARBON DIOXIDE 29.7 MMOL/L (24-32); eGFR 41 ML/MIN
[2018-06-18 07:00] VITALS: BP 143/67
[2018-06-18] MEDS ORDERED: diltiazem CD 180mg cap (once-daily) PO SCH (08:00)
[2018-06-18] MEDS ORDERED: enoxaparin 40mg/0.4ml syringe SQ SCH (08:00)
[2018-06-18] MEDS ORDERED: aspirin 81mg tab.chew PO SCH (08:30)
[2018-06-18] MEDS: furosemide 20 MG/2 ML vial IV SCH ×2 (08:35→20:26)
[2018-06-18] MEDS: predniSONE 20 mg tablet PO SCH (08:35)
[2018-06-18] MEDS: aspirin 81mg tablet.DR PO SCH (08:35)
[2018-06-18] MEDS: docusate sod 100mg capsule PO SCH (08:35)
[2018-06-18] MEDS: citalopram 20mg tablet PO SCH ×2 (08:35→20:26)
[2018-06-18] MEDS: apixaban 5mg tablet PO SCH (08:35)
[2018-06-18] MEDS: potassium Cl 20 mEq SR tablet PO PRN ×2 (08:39→20:28)
[2018-06-18] MEDS: K and/or MAG REPLACEMENT MC SCH (08:45)
[2018-06-18] MEDS ORDERED: heparin 10,000 units/1 ML INJ IV ONE (11:20)
[2018-06-18] MEDS ORDERED: heparin 10,000 units/1 ML INJ IV PRN (11:20)
[2018-06-18] MEDS ORDERED: metoprolol succinate 25mg (24-HOUR) SR. Tablet PO SCH (11:25)
[2018-06-18 11:45] LABS: BASOPHILS % (AUTO) 0.1 % (0-1); EOSINOPHILS # (AUTO) 0.2 X10'3 (0-0.9); EOSINOPHILS % (AUTO) 1.3 % (0-6); HEMATOCRIT 34.2 % (35.0-45.0); HEMOGLOBIN 11.2 g/dl (12.0-16.0); LYMPHOCYTES # (AUTO) 0.4 X10'3 (1.1-4.8); LYMPHOCYTES % (AUTO) 2.9 % (21-51); MEAN CORPUSCULAR HEMOGLOBIN 29.4 PG (27.0-31.0); MEAN CORPUSCULAR HGB CONC 32.6 % (33.0-36.5); MEAN CORPUSCULAR VOLUME 90.2 FL (78-98); MEAN PLATELET VOLUME 9.4 FL (7.4-10.4); MONOCYTES # (AUTO) 0.9 X10'3 (0-0.9); MONOCYTES % (AUTO) 6.8 % (2-12); NEUTROPHILS # (AUTO) 11.5 X10'3 (1.8-7.7); NEUTROPHILS % (AUTO) 88.9 % (42-75); PLATELET COUNT 260 X10'3 (140-440); RED BLOOD COUNT 3.79 X10'6 (4.20-5.60); RED CELL DISTRIBUTION WIDTH 14.6 % (11.5-14.5); WHITE BLOOD COUNT 12.9 X10'3 (4.5-11.0)
[2018-06-18 12:03] LABS: INR 1.1 INR; PARTIAL THROMBOPLASTIN TIME 25 SECONDS (22-32); PROTHROMBIN TIME 11.3 SECONDS (9.0-12.0)
[2018-06-18] MEDS: heparin 25,000 UNIT/250ml bag 250 ML IV SCH ×2 (13:57→21:23)
[2018-06-18 14:30] VITALS: BP 146/84
[2018-06-18] MEDS ORDERED: diltiazem 5mg/ml 5ml inj. IV ONE (15:10)
[2018-06-18 16:00] VITALS: BP 130/55
[2018-06-18 16:50] LABS: CLARITY,URINE SLIGHTLY CLOUDY (Clear); COLOR,URINE YELLOW (Yellow); GLUCOSE, URINE NEGATIVE (Neg); KETONES,URINE NEGATIVE (Neg); LEUKOCYTE ESTERASE ,URINE NEGATIVE (Neg); NITRITES, URINE NEGATIVE (Neg); OCCULT BLOOD,URINE TRACE-INTACT (Neg); PROTEIN,URINE NEGATIVE (Neg); UROBILINOGEN,URINE 0.2 E.U/dL (0.2-1.0)
[2018-06-18 16:52] LABS: UA COLLECTION TYPE CLN CATCH MIDSTREAM
[2018-06-18 16:59] LABS: BACTERIA,URINE 3+ /HPF (Neg); MUCUS STRANDS NONE SEEN /LPF (Neg); RBC,URINE 0-2 /HPF (0-2); SQUAMOUS EPITHELIAL CELL,UR FEW /LPF (FEW)
[2018-06-18 18:00] VITALS: BP 149/56
[2018-06-18] MEDS ORDERED: metoprolol succinate 25mg (24-HOUR) SR. Tablet PO ONE (18:45)
[2018-06-18] MEDS ORDERED: acetylcysteine 200 MG/ml 4ml vial PO ONE (18:55)
[2018-06-18] MEDS: sodium bicarbonate (8.4%) inj. 150 MEQ in sodium chloride 0.45% 1,000 ML IV SCH (20:29)
[2018-06-18] MEDS: HYDROcodone/acetaminophen 10/325mg tab PO PRN (21:08)
[2018-06-18 22:00] VITALS: BP 111/60
[2018-06-19] VITALS (16 sets, daily range): BP systolic 104–214; BP diastolic 46–181
[2018-06-19] MEDS: potassium Cl 20 mEq SR tablet PO PRN (00:36)
[2018-06-19] MEDS: ipratropium/albuterol 3ml nebule NEB SCH ×5 (02:53→23:00)
[2018-06-19 05:37] LABS: ALBUMIN 3.1 G/DL (3.4-5.0); ANION GAP 8 (8-16); BLOOD UREA NITROGEN 41 MG/DL (7-18); BUN/CREATININE RATIO 36.9 (6.6-38.0); CALCIUM 8.4 MG/DL (8.5-10.1); CHLORIDE 103 MMOL/L (99-107); CHOL/HDL RATIO 2.2 (0.00-4.99); CHOLESTEROL 149 MG/DL (0-200); CREATININE 1.11 MG/DL (0.40-0.90); GLUCOSE 87 MG/DL (70-104); HDL CHOLESTEROL 67 MG/DL (35-60); LDL CHOLESTEROL 65 MG/DL (50-100); MAGNESIUM 1.8 MG/DL (1.5-2.4); SODIUM 144 MMOL/L (135-145); TOTAL CARBON DIOXIDE 33.5 MMOL/L (24-32); TRIGLYCERIDES 96 MG/DL (20-135); eGFR 47 ML/MIN
[2018-06-19 05:55] LABS: BASOPHILS % (AUTO) 0.3 % (0-1); EOSINOPHILS # (AUTO) 0.3 X10'3 (0-0.9); EOSINOPHILS % (AUTO) 1.8 % (0-6); HEMATOCRIT 34.3 % (35.0-45.0); HEMOGLOBIN 11.2 g/dl (12.0-16.0); LYMPHOCYTES # (AUTO) 1.9 X10'3 (1.1-4.8); LYMPHOCYTES % (AUTO) 12.1 % (21-51); MEAN CORPUSCULAR HEMOGLOBIN 29.8 PG (27.0-31.0); MEAN CORPUSCULAR HGB CONC 32.7 % (33.0-36.5); MEAN CORPUSCULAR VOLUME 90.9 FL (78-98); MEAN PLATELET VOLUME 10.7 FL (7.4-10.4); MONOCYTES # (AUTO) 1.4 X10'3 (0-0.9); MONOCYTES % (AUTO) 8.8 % (2-12); NEUTROPHILS # (AUTO) 12.2 X10'3 (1.8-7.7); PLATELET COUNT 275 X10'3 (140-440); RED BLOOD COUNT 3.77 X10'6 (4.20-5.60); RED CELL DISTRIBUTION WIDTH 14.6 % (11.5-14.5); WHITE BLOOD COUNT 15.9 X10'3 (4.5-11.0)
[2018-06-19] MEDS: predniSONE 20 mg tablet PO SCH (07:34)
[2018-06-19] MEDS: docusate sod 100mg capsule PO SCH (07:34)
[2018-06-19] MEDS: metoprolol succinate 25mg (24-HOUR) SR. Tablet PO SCH (07:35)
[2018-06-19] MEDS: citalopram 20mg tablet PO SCH ×2 (07:35→20:31)
[2018-06-19] MEDS: K and/or MAG REPLACEMENT MC SCH (07:36)
[2018-06-19] MEDS: aspirin 81mg tablet.DR PO SCH (07:36)
[2018-06-19] MEDS: furosemide 20 MG/2 ML vial IV SCH ×2 (07:36→20:31)
[2018-06-19] MEDS: heparin 25,000 UNIT/250ml bag 250 ML IV SCH (07:51)
[2018-06-19 09:36] LABS: LARGE PLATELETS FEW; PLATELET ESTIMATE NORMAL
[2018-06-19] MEDS ORDERED: heparin 1,000unit/ml 10ml vial 10 ML ONE (11:05)
[2018-06-19] MEDS ORDERED: midazolam 2 mg/2 ml injection ONE (11:05)
[2018-06-19] MEDS ORDERED: nitroGLYCERIN-Tridil 50MG/D5W 250 ML IV ONE (11:05)
[2018-06-19] MEDS ORDERED: LIDOcaine 1% (10mg/ml)w/preservative injection 20ml MDV ONE (11:05)
[2018-06-19] MEDS ORDERED: fentaNYL/PF 50MCG/1 ML 2ML syringe ONE (11:05)
[2018-06-19] MEDS ORDERED: iohexol 350MG/ML 100ml bottle IV ONE (11:06)
[2018-06-19] MEDS ORDERED: iohexol 350 MG/ML 50ML vial IV ONE (11:06)
[2018-06-19] MEDS: sodium bicarbonate (8.4%) inj. 150 MEQ in sodium chloride 0.45% 1,000 ML IV SCH (11:14)
[2018-06-19 12:16] LABS: ISTAT HGB ART 12.2 g/dl (12.0-16.0); ISTAT Hct ART 36 %PCV (35-48); ISTAT Hct MIX 36 %PCV (35-48); ISTAT O2 SATURATION ARTERIAL 97 % (95-98); ISTAT O2 SATURATION MIX VENOUS 62 % (60-80); ISTAT SOURCE ART; ISTAT SOURCE MIX
[2018-06-19] MEDS: HYDROcodone/acetaminophen 10/325mg tab PO PRN (13:31)
[2018-06-19] MEDS: acetylcysteine 200 MG/ml 4ml vial PO SCH (20:32)
[2018-06-20 02:00] VITALS: BP 152/55
[2018-06-20] MEDS: sodium bicarbonate (8.4%) inj. 150 MEQ in sodium chloride 0.45% 1,000 ML IV SCH ×2 (02:03→10:23)
[2018-06-20] MEDS: ipratropium/albuterol 3ml nebule NEB SCH ×6 (03:00→23:00)
[2018-06-20 05:43] LABS: BASOPHILS # (AUTO) 0.1 X10'3 (0-0.2); BASOPHILS % (AUTO) 0.4 % (0-1); EOSINOPHILS # (AUTO) 0.3 X10'3 (0-0.9); EOSINOPHILS % (AUTO) 1.9 % (0-6); HEMATOCRIT 33.3 % (35.0-45.0); HEMOGLOBIN 10.9 g/dl (12.0-16.0); LYMPHOCYTES # (AUTO) 1.8 X10'3 (1.1-4.8); MEAN CORPUSCULAR HEMOGLOBIN 29.6 PG (27.0-31.0); MEAN CORPUSCULAR HGB CONC 32.7 % (33.0-36.5); MEAN CORPUSCULAR VOLUME 90.4 FL (78-98); MEAN PLATELET VOLUME 9.5 FL (7.4-10.4); MONOCYTES # (AUTO) 1.2 X10'3 (0-0.9); MONOCYTES % (AUTO) 8.5 % (2-12); NEUTROPHILS # (AUTO) 10.8 X10'3 (1.8-7.7); NEUTROPHILS % (AUTO) 76.2 % (42-75); PLATELET COUNT 214 X10'3 (140-440); RED BLOOD COUNT 3.68 X10'6 (4.20-5.60); RED CELL DISTRIBUTION WIDTH 13.9 % (11.5-14.5); WHITE BLOOD COUNT 14.1 X10'3 (4.5-11.0)
[2018-06-20 05:55] LABS: ALBUMIN 2.8 G/DL (3.4-5.0); ANION GAP 5 (8-16); BLOOD UREA NITROGEN 41 MG/DL (7-18); BUN/CREATININE RATIO 37.3 (6.6-38.0); CALCIUM 8.1 MG/DL (8.5-10.1); CHLORIDE 100 MMOL/L (99-107); GLUCOSE 80 MG/DL (70-104); MAGNESIUM 1.8 MG/DL (1.5-2.4); POTASSIUM 3.4 MMOL/L (3.5-5.1); SODIUM 143 MMOL/L (135-145); TOTAL CARBON DIOXIDE 37.8 MMOL/L (24-32); eGFR 48 ML/MIN
[2018-06-20 06:00] VITALS: BP 120/50
[2018-06-20] MEDS: aspirin 81mg tablet.DR PO SCH (08:03)
[2018-06-20] MEDS: citalopram 20mg tablet PO SCH ×2 (08:03→20:17)
[2018-06-20] MEDS: diltiazem CD 180mg cap (once-daily) PO SCH (08:03)
[2018-06-20] MEDS: docusate sod 100mg capsule PO SCH (08:04)
[2018-06-20] MEDS: potassium Cl 20 mEq SR tablet PO PRN ×3 (08:04→20:18)
[2018-06-20] MEDS: predniSONE 20 mg tablet PO SCH (08:04)
[2018-06-20] MEDS: metoprolol succinate 25mg (24-HOUR) SR. Tablet PO SCH (08:04)
[2018-06-20] MEDS: acetylcysteine 200 MG/ml 4ml vial PO SCH ×2 (08:05→20:17)
[2018-06-20] MEDS: furosemide 20 MG/2 ML vial IV SCH ×2 (08:05→17:47)
[2018-06-20] MEDS: K and/or MAG REPLACEMENT MC SCH (08:12)
[2018-06-20] MEDS ORDERED: sulfamethoxazole/trimethoprim DS (800/160mg) tablet PO SCH (08:30)
[2018-06-20] MEDS: HYDROcodone/acetaminophen 10/325mg tab PO PRN ×2 (09:03→20:22)
[2018-06-20 11:00] VITALS: BP 137/73
[2018-06-20 15:00] VITALS: BP 125/47
[2018-06-20] MEDS ORDERED: potassium Cl 40MEQ/NS 500ml 500 ML IV PRN ×2 (15:45)
[2018-06-20] MEDS ORDERED: potassium Cl 20 mEq SR tablet PO PRN (15:45)
[2018-06-20] MEDS ORDERED: enoxaparin 40mg/0.4ml syringe SUBCUT SCH (16:25)
[2018-06-20] MEDS ORDERED: nitroGLYCERIN 0.4mg SUBLingual tab SL PRN (16:25)
[2018-06-20] MEDS: CefTRIAXone/D5W-Rocephin 1gm 50 ML IV SCH (17:48)
[2018-06-20 19:00] VITALS: BP 134/52
[2018-06-20 23:00] VITALS: BP 114/51
[2018-06-21] MEDS: ipratropium/albuterol 3ml nebule NEB SCH ×3 (02:48→10:59)
[2018-06-21 03:00] VITALS: BP 139/56
[2018-06-21 06:00] VITALS: BP 162/55
[2018-06-21 07:04] LABS: BASOPHILS % (AUTO) 0.2 % (0-1); EOSINOPHILS # (AUTO) 0.5 X10'3 (0-0.9); EOSINOPHILS % (AUTO) 3.4 % (0-6); HEMATOCRIT 33.9 % (35.0-45.0); LYMPHOCYTES # (AUTO) 1.8 X10'3 (1.1-4.8); MEAN CORPUSCULAR HEMOGLOBIN 29.5 PG (27.0-31.0); MEAN CORPUSCULAR HGB CONC 32.4 % (33.0-36.5); MEAN PLATELET VOLUME 10.1 FL (7.4-10.4); MONOCYTES # (AUTO) 1.1 X10'3 (0-0.9); MONOCYTES % (AUTO) 7.6 % (2-12); NEUTROPHILS # (AUTO) 11.3 X10'3 (1.8-7.7); NEUTROPHILS % (AUTO) 76.8 % (42-75); PLATELET COUNT 230 X10'3 (140-440); RED BLOOD COUNT 3.73 X10'6 (4.20-5.60); RED CELL DISTRIBUTION WIDTH 14.6 % (11.5-14.5); WHITE BLOOD COUNT 14.7 X10'3 (4.5-11.0)
[2018-06-21 07:10] LABS: ALBUMIN 2.9 G/DL (3.4-5.0); ANION GAP 4 (8-16); BLOOD UREA NITROGEN 39 MG/DL (7-18); BUN/CREATININE RATIO 28.9 (6.6-38.0); CALCIUM 8.4 MG/DL (8.5-10.1); CHLORIDE 100 MMOL/L (99-107); CREATININE 1.35 MG/DL (0.40-0.90); GLUCOSE 90 MG/DL (70-104); MAGNESIUM 1.9 MG/DL (1.5-2.4); POTASSIUM 4.2 MMOL/L (3.5-5.1); SODIUM 143 MMOL/L (135-145); TOTAL CARBON DIOXIDE 38.7 MMOL/L (24-32); eGFR 38 ML/MIN
[2018-06-21] MEDS: potassium Cl 20 mEq SR tablet PO PRN (07:47)
[2018-06-21] MEDS: diltiazem CD 180mg cap (once-daily) PO SCH (07:47)
[2018-06-21] MEDS: citalopram 20mg tablet PO SCH (07:47)
[2018-06-21] MEDS: docusate sod 100mg capsule PO SCH (07:48)
[2018-06-21] MEDS: aspirin 81mg tablet.DR PO SCH (07:48)
[2018-06-21] MEDS: furosemide 20 MG/2 ML vial IV SCH ×3 (07:48→16:54)
[2018-06-21] MEDS: metoprolol succinate 25mg (24-HOUR) SR. Tablet PO SCH (07:48)
[2018-06-21] MEDS: CefTRIAXone/D5W-Rocephin 1gm 50 ML IV SCH (07:49)
[2018-06-21] MEDS: acetylcysteine 200 MG/ml 4ml vial PO SCH (07:49)
[2018-06-21] MEDS ORDERED: apixaban 5mg tablet PO SCH (08:00)
[2018-06-21] MEDS ORDERED: prednisone 10mg tablet PO SCH (08:00)
[2018-06-21] MEDS: K and/or MAG REPLACEMENT MC SCH (08:09)
[2018-06-21 11:00] VITALS: BP 139/70
[2018-06-21] MEDS ORDERED: NITR0.4T51 SL (13:44)
[2018-06-21] MEDS ORDERED: FURO-150 PO (13:44)
[2018-06-21] MEDS ORDERED: CEFD300C3 PO (13:44)
[2018-06-21] MEDS ORDERED: PRED10TA23 PO (13:44)
[2018-06-21] MEDS ORDERED: POTA20TA19 PO (13:44)
[2018-06-21] MEDS ORDERED: ipratropium/albuterol 3ml nebule NEB PRN (14:15)
== END 2018-06-21 18:30 | disposition home health service (06) | DRG 280 ==
LOC: ER 07:01 → ED HOLD 08:55 → SUR 3N 20:00 → PCU 3S 06-18 16:00
PROVIDERS: ADMIT Hospitalist; ATTEND Internal Medicine
PROC: 4A023N8 Measurement of Cardiac Sampling and Pressure, Bilateral, Percutaneous Approach (ICD-10-PCS; principal; 2018-06-19)
PROC: B2111ZZ Fluoroscopy of Multiple Coronary Arteries using Low Osmolar Contrast (ICD-10-PCS; 2018-06-19)
PROC: B2151ZZ Fluoroscopy of Left Heart using Low Osmolar Contrast (ICD-10-PCS; 2018-06-19)
DX: I21.4 Non-ST elevation (NSTEMI) myocardial infarction (principal); I50.31 Acute diastolic (congestive) heart failure; J96.21 Acute and chronic respiratory failure with hypoxia; J44.1 Chronic obstructive pulmonary disease with (acute) exacerbation; N39.0 Urinary tract infection, site not specified; B96.20 Unspecified Escherichia coli [E. coli] as the cause of diseases classified elsewhere; D64.9 Anemia, unspecified; E03.9 Hypothyroidism, unspecified; I25.10 Atherosclerotic heart disease of native coronary artery without angina pectoris; E78.5 Hyperlipidemia, unspecified; F32.9 Major depressive disorder, single episode, unspecified; Z60.2 Problems related to living alone; G89.29 Other chronic pain; M19.90 Unspecified osteoarthritis, unspecified site; M54.9 Dorsalgia, unspecified; F41.9 Anxiety disorder, unspecified; I11.0 Hypertensive heart disease with heart failure; I48.0 Paroxysmal atrial fibrillation; K21.9 Gastro-esophageal reflux disease without esophagitis; K57.90 Diverticulosis of intestine, part unspecified, without perforation or abscess without bleeding; Z90.49 Acquired absence of other specified parts of digestive tract; Z90.710 Acquired absence of both cervix and uterus; Z99.81 Dependence on supplemental oxygen; Z79.899 Other long term (current) drug therapy; Z86.79 Personal history of other diseases of the circulatory system; Z87.891 Personal history of nicotine dependence
CPT/HCPCS: 36415; 71045; 80048; 80053; 80061; 81001; 82803; 83735; 83880; 84484; 85014; 85025; 85347; 85610; 85730; 87077; 87088; 87186; 93005; 93460; 94640; 94760; 96374; 96375; 97116; 97162; 97530; 99152; 99153; 99285; A6257; C1769; G0378; J0696; J1644; J1940; J2001; J2250; J2930; J3010; J3490; J7030; J7512; Q9967

== ENCOUNTER 2019-03-14 11:07 | Inpatient (IN) | payer MEDICARE, BC ==
[~2019-03-14] VITALS: Ht 152.4 cm; Wt 64.0 kg
[~2019-03-14 11:07] MED LIST changes: +APIX5TAB3 PO; +ASPI-1130 PO; -CHOL200013; +CITA20TA28 PO; -CLOP75TA15 PO; +DILT-36 PO; -DILT180C95 PO; +DOCU-22 PO; -DULO-31 PO; -ESCI20TA PO; -LOSA50TA3 PO; +MAGN70TA2 PO; +METO25TA6 PO; +NITR0.4T51 SL; -POTA10CA44 PO; +PRAV40TA3 PO; -SPIR50TA5 PO
[2019-03-14 11:34] LABS: BASOPHILS # (AUTO) 0.1 X10'3 (0-0.2); BASOPHILS % (AUTO) 1.3 % (0-1); EOSINOPHILS # (AUTO) 0.5 X10'3 (0-0.9); EOSINOPHILS % (AUTO) 4.3 % (0-6); HEMATOCRIT 35.4 % (35.0-45.0); HEMOGLOBIN 11.5 g/dl (12.0-16.0); LYMPHOCYTES # (AUTO) 1.6 X10'3 (1.1-4.8); LYMPHOCYTES % (AUTO) 14.7 % (21-51); MEAN CORPUSCULAR HEMOGLOBIN 29.6 PG (27.0-31.0); MEAN CORPUSCULAR HGB CONC 32.6 g/dL (33.0-36.5); MEAN CORPUSCULAR VOLUME 90.9 FL (78-98); MONOCYTES # (AUTO) 1.2 X10'3 (0-0.9); MONOCYTES % (AUTO) 10.4 % (2-12); NEUTROPHILS # (AUTO) 7.7 X10'3 (1.8-7.7); NEUTROPHILS % (AUTO) 69.3 % (42-75); PLATELET COUNT 266 X10'3 (140-440); RED BLOOD COUNT 3.89 X10'6 (4.20-5.60); RED CELL DISTRIBUTION WIDTH 14.6 % (11.5-14.5); WHITE BLOOD COUNT 11.1 X10'3 (4.5-11.0)
[2019-03-14 11:45] LABS: PARTIAL THROMBOPLASTIN TIME 30 SECONDS (22-32)
[2019-03-14 11:46] LABS: ALBUMIN 3.3 G/DL (3.4-5.0); ANION GAP 11 (8-16); BILIRUBIN,TOTAL 0.6 MG/DL (0.1-1.0); BLOOD UREA NITROGEN 48 MG/DL (7-18); BUN/CREATININE RATIO 25.9 (6.6-38.0); CALCIUM 9.1 MG/DL (8.5-10.1); CHLORIDE 107 MMOL/L (99-107); CREATININE 1.85 MG/DL (0.40-0.90); GLUCOSE 84 MG/DL (70-104); POTASSIUM 3.8 MMOL/L (3.5-5.1); SODIUM 146 MMOL/L (135-145); TOTAL CARBON DIOXIDE 27.6 MMOL/L (24-32); TOTAL PROTEIN 6.6 G/DL (6.4-8.2); eGFR 26 ML/MIN
[2019-03-14 11:47] LABS: ALANINE AMINOTRANSFERASE 20 U/L (12-78); ALKALINE PHOSPHATASE 60 IU/L (46-116); ASPARTATE AMINO TRANSFERASE 9 U/L (10-37)
[2019-03-14 12:14] LABS: CLARITY,URINE CLOUDY (Clear); COLOR,URINE YELLOW (Yellow); GLUCOSE, URINE NEGATIVE (Neg); KETONES,URINE NEGATIVE (Neg); LEUKOCYTE ESTERASE ,URINE MODERATE (Neg); NITRITES, URINE NEGATIVE (Neg); OCCULT BLOOD,URINE TRACE-LYSED (Neg); PH,URINE 5.5 (4.8-8.0); PROTEIN,URINE NEGATIVE (Neg); UROBILINOGEN,URINE 0.2 E.U/dL (0.2-1.0)
[2019-03-14 12:16] LABS: UA COLLECTION TYPE STRAIGHT CATH
[2019-03-14 12:24] LABS: WBC,URINE 50-100 /HPF (0-4)
[2019-03-14 12:25] LABS: BACTERIA,URINE 4+ /HPF (Neg); RBC,URINE NONE SEEN /HPF (0-2); SQUAMOUS EPITHELIAL CELL,UR MODERATE /LPF (FEW); WBC CLUMPS,URINE MODERATE /HPF (NEGATIVE)
[2019-03-14] MEDS ORDERED: CefTRIAXone/D5W-Rocephin 1gm 50 ML IV ONE (12:50)
[2019-03-14] MEDS: normal saline 1000ml 1,000 ML IV SCH (13:02)
[2019-03-14] MEDS ORDERED: HYDR-3964 PO (13:05)
[2019-03-14] MEDS ORDERED: VALS80TA32 PO (13:05)
[2019-03-14] MEDS ORDERED: ondansetron/PF 4mg/2ml inj IV PRN (13:05)
[2019-03-14] MEDS ORDERED: acetaminophen 325mg tablet PO PRN (13:05)
[2019-03-14] MEDS ORDERED: normal saline 1000ML IV soln IVB ONE (13:05)
[2019-03-14] MEDS ORDERED: mag hydrox/Alum hydrox/simeth 30ml oral suspension PO PRN (13:05)
[2019-03-14] MEDS ORDERED: OMEP-50 PO (13:05)
[2019-03-14] MEDS ORDERED: DULO60CA65 PO (13:05)
[2019-03-14] MEDS ORDERED: FURO20TA4 PO (13:05)
[2019-03-14] MEDS ORDERED: POTA20TA19 PO (13:05)
[2019-03-14] MEDS ORDERED: magnesium hydroxide 30ml (MOM) UD suspension PO PRN (13:05)
--- NOTE | 2019-03-14 15:14 | NUR ---
GAVE REPORT TO TAO HAWK ON THE 4TH FLOOR, PATIENT ONLY HAS SOME CLOTHES WITH HER, WENT OVER ENTIRE CHART, PLAN OF CARE, ETC.
[2019-03-14 15:30] VITALS: BP 162/113
--- NOTE | 2019-03-14 15:30 | NUR ---
Patient in room ORTHO 4009. I have received report from ANNAMARIA Engle and had the opportunity to ask questions and assume patient care.
[2019-03-14 18:00] VITALS: BP 139/53
--- NOTE | 2019-03-14 18:19 | NUR ---
Problems reprioritized. Patient report given, questions answered & plan of care reviewed with ANNAMARIA Fagan. Addendum: 03/14/19 at 1820 by April Chew RN Report actually given to "Molly.
--- NOTE | 2019-03-14 18:20 | NUR ---
Received report from April YIN. assumed care of patient.
[2019-03-14] MEDS: potassium Cl 20 mEq SR tablet PO SCH (19:41)
[2019-03-14] MEDS: furosemide 20MG tablet PO SCH (19:41)
[2019-03-14] MEDS: heparin, porcine 5000 units/ml vial SQ SCH (19:42)
[2019-03-14] MEDS: metoprolol tartrate 25mg tablet PO SCH (19:42)
[2019-03-14] MEDS: pantoprazole 40mg Tablet.DR PO SCH (19:44)
[2019-03-14 22:00] VITALS: BP 160/55
[2019-03-15] MEDS: normal saline 1000ml 1,000 ML IV SCH ×4 (01:44→19:59)
[2019-03-15] MEDS: HYDROcodone/acetaminophen 5mg/325mg tablet PO PRN ×3 (02:43→19:50)
[2019-03-15 05:25] LABS: BASOPHILS # (AUTO) 0.1 X10'3 (0-0.2); BASOPHILS % (AUTO) 0.9 % (0-1); EOSINOPHILS # (AUTO) 0.4 X10'3 (0-0.9); EOSINOPHILS % (AUTO) 4.1 % (0-6); HEMATOCRIT 31.3 % (35.0-45.0); HEMOGLOBIN 10.4 g/dl (12.0-16.0); LYMPHOCYTES # (AUTO) 1.4 X10'3 (1.1-4.8); LYMPHOCYTES % (AUTO) 13.8 % (21-51); MEAN CORPUSCULAR HEMOGLOBIN 29.9 PG (27.0-31.0); MEAN CORPUSCULAR HGB CONC 33.3 g/dL (33.0-36.5); MEAN PLATELET VOLUME 9.3 FL (7.4-10.4); MONOCYTES # (AUTO) 1.1 X10'3 (0-0.9); MONOCYTES % (AUTO) 11.5 % (2-12); NEUTROPHILS # (AUTO) 6.9 X10'3 (1.8-7.7); NEUTROPHILS % (AUTO) 69.7 % (42-75); PLATELET COUNT 218 X10'3 (140-440); RED BLOOD COUNT 3.48 X10'6 (4.20-5.60); RED CELL DISTRIBUTION WIDTH 14.8 % (11.5-14.5); WHITE BLOOD COUNT 9.9 X10'3 (4.5-11.0)
[2019-03-15 05:31] LABS: ALBUMIN 2.6 G/DL (3.4-5.0); ANION GAP 9 (8-16); BLOOD UREA NITROGEN 32 MG/DL (7-18); CHLORIDE 110 MMOL/L (99-107); CREATININE 1.39 MG/DL (0.40-0.90); GLUCOSE 108 MG/DL (70-104); POTASSIUM 3.5 MMOL/L (3.5-5.1); SODIUM 145 MMOL/L (135-145); TOTAL CARBON DIOXIDE 25.9 MMOL/L (24-32); eGFR 36 ML/MIN
[2019-03-15 06:00] VITALS: BP 150/64
--- NOTE | 2019-03-15 06:00 | NUR ---
Gave report to Mariposa YIN.
--- NOTE | 2019-03-15 06:00 | NUR ---
Patient in room ORTHO 4009. I have received report from VITALIY YIN and had the opportunity to ask questions and assume patient care.
[2019-03-15] MEDS ORDERED: levoTHYROXINE 100mcg tablet PO SCH (08:00)
[2019-03-15] MEDS: citalopram 20mg tablet PO SCH (08:22)
[2019-03-15] MEDS: losartan 50mg tablet PO SCH (08:22)
[2019-03-15] MEDS: duloxetine 30mg CAPSULE.DR PO SCH (08:22)
[2019-03-15] MEDS: CefTRIAXone/D5W-Rocephin 1gm 50 ML IV SCH (08:22)
[2019-03-15] MEDS: aspirin 81mg tablet.DR PO SCH (08:23)
[2019-03-15] MEDS: furosemide 20MG tablet PO SCH ×2 (08:23→19:50)
[2019-03-15] MEDS: metoprolol tartrate 25mg tablet PO SCH ×2 (08:23→19:49)
[2019-03-15] MEDS: pantoprazole 40mg Tablet.DR PO SCH (08:23)
[2019-03-15] MEDS: potassium Cl 20 mEq SR tablet PO SCH ×2 (08:23→19:49)
[2019-03-15] MEDS: montelukast 10mg tablet PO SCH (08:23)
[2019-03-15] MEDS: heparin, porcine 5000 units/ml vial SQ SCH ×2 (08:23→19:50)
[2019-03-15] MEDS: diltiazem CD 180mg cap (once-daily) PO SCH (08:58)
[2019-03-15] MEDS: pravastatin 40mg tablet PO SCH (08:58)
[2019-03-15 10:00] VITALS: BP 131/63
--- NOTE | 2019-03-15 13:55 | NUR ---
PAGER ID: [phone] MESSAGE: MARGARITA [phone] RE: MAMI [id number] PT HAS A RENAL US ORDERED FOR OP TOMORROW THAT DR RIOS ORDERED. FAMILY WANTS TO KNOW IF WE CAN DO HERE?
--- NOTE | 2019-03-15 15:21 | NUR ---
PAGER ID: [phone] MESSAGE: MARGARITA [phone] RE: MAMI [id number] PT IS PAINFUL ONLY HAS NORCO BID, CAN WE CHANGE TO Q6?
--- NOTE | 2019-03-15 18:20 | NUR ---
Problems reprioritized. Patient report given, questions answered & plan of care reviewed with BRIAN YIN.
[2019-03-15 18:30] VITALS: BP 139/49
[2019-03-15] MEDS: lactobacillus rhamnosus 10,000 MMU CELLS/CAPSULE PO SCH (19:46)
[2019-03-15 22:00] VITALS: BP 157/55
[2019-03-16 06:00] VITALS: BP 123/57
[2019-03-16 06:09] LABS: BASOPHILS # (AUTO) 0.1 X10'3 (0-0.2); BASOPHILS % (AUTO) 0.8 % (0-1); EOSINOPHILS # (AUTO) 0.5 X10'3 (0-0.9); EOSINOPHILS % (AUTO) 4.5 % (0-6); HEMATOCRIT 30.4 % (35.0-45.0); HEMOGLOBIN 10.1 g/dl (12.0-16.0); LYMPHOCYTES # (AUTO) 1.6 X10'3 (1.1-4.8); LYMPHOCYTES % (AUTO) 15.4 % (21-51); MEAN CORPUSCULAR HEMOGLOBIN 29.9 PG (27.0-31.0); MEAN CORPUSCULAR HGB CONC 33.2 g/dL (33.0-36.5); MEAN PLATELET VOLUME 9.1 FL (7.4-10.4); MONOCYTES % (AUTO) 10.1 % (2-12); NEUTROPHILS % (AUTO) 69.2 % (42-75); PLATELET COUNT 191 X10'3 (140-440); RED BLOOD COUNT 3.38 X10'6 (4.20-5.60); RED CELL DISTRIBUTION WIDTH 14.7 % (11.5-14.5); WHITE BLOOD COUNT 10.1 X10'3 (4.5-11.0)
--- NOTE | 2019-03-16 06:15 | NUR ---
Patient in room ORTHO 4009. I have received report from BRIAN RN and had the opportunity to ask questions and assume patient care.
[2019-03-16 06:23] LABS: ALBUMIN 2.6 G/DL (3.4-5.0); ANION GAP 9 (8-16); BLOOD UREA NITROGEN 20 MG/DL (7-18); BUN/CREATININE RATIO 17.7 (6.6-38.0); CHLORIDE 111 MMOL/L (99-107); CREATININE 1.13 MG/DL (0.40-0.90); GLUCOSE 91 MG/DL (70-104); POTASSIUM 3.4 MMOL/L (3.5-5.1); SODIUM 146 MMOL/L (135-145); TOTAL CARBON DIOXIDE 26.4 MMOL/L (24-32); eGFR 46 ML/MIN
[2019-03-16] MEDS: aspirin 81mg tablet.DR PO SCH (07:37)
[2019-03-16] MEDS: lactobacillus rhamnosus 10,000 MMU CELLS/CAPSULE PO SCH ×2 (07:37→19:41)
[2019-03-16] MEDS: diltiazem CD 180mg cap (once-daily) PO SCH (07:37)
[2019-03-16] MEDS: losartan 50mg tablet PO SCH (07:37)
[2019-03-16] MEDS: levoTHYROXINE 25mcg tablet PO SCH (07:38)
[2019-03-16] MEDS: citalopram 20mg tablet PO SCH (07:38)
[2019-03-16] MEDS: pantoprazole 40mg Tablet.DR PO SCH (07:38)
[2019-03-16] MEDS: duloxetine 30mg CAPSULE.DR PO SCH (07:38)
[2019-03-16] MEDS: pravastatin 40mg tablet PO SCH (07:38)
[2019-03-16] MEDS: potassium Cl 20 mEq SR tablet PO SCH ×2 (07:38→19:41)
[2019-03-16] MEDS: heparin, porcine 5000 units/ml vial SQ SCH ×2 (07:38→19:43)
[2019-03-16] MEDS: furosemide 20MG tablet PO SCH ×2 (07:38→19:41)
[2019-03-16] MEDS: montelukast 10mg tablet PO SCH (07:38)
[2019-03-16] MEDS: CefTRIAXone/D5W-Rocephin 1gm 50 ML IV SCH (07:39)
[2019-03-16] MEDS: metoprolol tartrate 25mg tablet PO SCH ×2 (07:42→19:42)
[2019-03-16] MEDS: HYDROcodone/acetaminophen 5mg/325mg tablet PO PRN (07:42)
[2019-03-16] MEDS: normal saline 1000ml 1,000 ML IV SCH ×2 (07:47→17:31)
[2019-03-16 10:00] VITALS: BP 137/57
[2019-03-16] MEDS ORDERED: potassium Cl 20 mEq SR tablet PO PRN (13:20)
[2019-03-16] MEDS ORDERED: potassium CL 10mEq/100ml bag 100 ML IV PRN (13:20)
[2019-03-16] MEDS ORDERED: HYDROcodone/acetaminophen 5mg/325mg tablet PO PRN (13:25)
[2019-03-16] MEDS: potassium Cl 20 mEq SR tablet PO PRN (15:25)
[2019-03-16 18:00] VITALS: BP 120/52
--- NOTE | 2019-03-16 18:05 | NUR ---
Problems reprioritized. Patient report given, questions answered & plan of care reviewed with YOLANDE YIN.
[2019-03-16 22:00] VITALS: BP 132/63
[2019-03-17 06:00] VITALS: BP 183/77
--- NOTE | 2019-03-17 06:24 | NUR ---
Problems reprioritized. Patient report given, questions answered & plan of care reviewed with ANNAMARIA Monge.
[2019-03-17 06:56] LABS: BASOPHILS # (AUTO) 0.1 X10'3 (0-0.2); BASOPHILS % (AUTO) 0.8 % (0-1); EOSINOPHILS # (AUTO) 0.4 X10'3 (0-0.9); EOSINOPHILS % (AUTO) 3.6 % (0-6); HEMATOCRIT 34.8 % (35.0-45.0); HEMOGLOBIN 11.6 g/dl (12.0-16.0); LYMPHOCYTES # (AUTO) 1.6 X10'3 (1.1-4.8); LYMPHOCYTES % (AUTO) 15.9 % (21-51); MEAN CORPUSCULAR HEMOGLOBIN 29.9 PG (27.0-31.0); MEAN CORPUSCULAR HGB CONC 33.3 g/dL (33.0-36.5); MEAN CORPUSCULAR VOLUME 89.8 FL (78-98); MEAN PLATELET VOLUME 9.8 FL (7.4-10.4); MONOCYTES # (AUTO) 0.9 X10'3 (0-0.9); MONOCYTES % (AUTO) 8.5 % (2-12); NEUTROPHILS # (AUTO) 7.4 X10'3 (1.8-7.7); NEUTROPHILS % (AUTO) 71.2 % (42-75); PLATELET COUNT 217 X10'3 (140-440); RED BLOOD COUNT 3.88 X10'6 (4.20-5.60); RED CELL DISTRIBUTION WIDTH 14.7 % (11.5-14.5); WHITE BLOOD COUNT 10.3 X10'3 (4.5-11.0)
[2019-03-17 07:19] LABS: ALBUMIN 2.8 G/DL (3.4-5.0); ANION GAP 11 (8-16); BLOOD UREA NITROGEN 13 MG/DL (7-18); BUN/CREATININE RATIO 13.1 (6.6-38.0); CALCIUM 8.6 MG/DL (8.5-10.1); CHLORIDE 109 MMOL/L (99-107); CREATININE 0.99 MG/DL (0.40-0.90); GLUCOSE 98 MG/DL (70-104); POTASSIUM 3.4 MMOL/L (3.5-5.1); SODIUM 146 MMOL/L (135-145); eGFR 54 ML/MIN
[2019-03-17] MEDS: lactobacillus rhamnosus 10,000 MMU CELLS/CAPSULE PO SCH (07:24)
[2019-03-17] MEDS: pantoprazole 40mg Tablet.DR PO SCH (07:24)
[2019-03-17] MEDS: pravastatin 40mg tablet PO SCH (07:24)
[2019-03-17] MEDS: aspirin 81mg tablet.DR PO SCH (07:24)
[2019-03-17] MEDS: metoprolol tartrate 25mg tablet PO SCH (07:25)
[2019-03-17] MEDS: citalopram 20mg tablet PO SCH (07:25)
[2019-03-17] MEDS: furosemide 20MG tablet PO SCH (07:25)
[2019-03-17] MEDS: levoTHYROXINE 25mcg tablet PO SCH (07:25)
[2019-03-17] MEDS: losartan 50mg tablet PO SCH (07:25)
[2019-03-17] MEDS: montelukast 10mg tablet PO SCH (07:26)
[2019-03-17] MEDS: potassium Cl 20 mEq SR tablet PO SCH (07:26)
[2019-03-17] MEDS: diltiazem CD 180mg cap (once-daily) PO SCH (07:27)
[2019-03-17] MEDS: heparin, porcine 5000 units/ml vial SQ SCH (07:27)
[2019-03-17] MEDS: CefTRIAXone/D5W-Rocephin 1gm 50 ML IV SCH (07:27)
[2019-03-17] MEDS: potassium Cl 20 mEq SR tablet PO PRN (07:42)
[2019-03-17] MEDS ORDERED: duloxetine 30mg CAPSULE.DR PO SCH (08:00)
[2019-03-17 10:00] VITALS: BP 143/69
[2019-03-17] MEDS: normal saline 1000ml 1,000 ML IV SCH (11:02)
== END 2019-03-17 15:00 | DRG 871 ==
LOC: ER 11:07 → ORTHO 4S 15:50
PROVIDERS: ADMIT Family Medicine; ATTEND Family Medicine
DX: A41.9 Sepsis, unspecified organism (principal); G93.41 Metabolic encephalopathy; N39.0 Urinary tract infection, site not specified; N17.9 Acute kidney failure, unspecified; E86.0 Dehydration; N18.9 Chronic kidney disease, unspecified; E03.9 Hypothyroidism, unspecified; G89.4 Chronic pain syndrome; I12.9 Hypertensive chronic kidney disease with stage 1 through stage 4 chronic kidney disease, or unspecified chronic kidney disease; J44.9 Chronic obstructive pulmonary disease, unspecified; B96.20 Unspecified Escherichia coli [E. coli] as the cause of diseases classified elsewhere; F41.9 Anxiety disorder, unspecified; M54.9 Dorsalgia, unspecified; Z60.2 Problems related to living alone; Z79.899 Other long term (current) drug therapy; Z91.018 Allergy to other foods; Z90.710 Acquired absence of both cervix and uterus; Z99.81 Dependence on supplemental oxygen; Z79.890 Hormone replacement therapy
CPT/HCPCS: 36415; 71045; 80048; 80053; 81001; 84443; 84484; 85025; 85610; 85730; 87077; 87081; 87088; 87186; 93005; 96365; 97112; 97116; 97161; 97530; 99285; G0378; J0696; J1644; J7030

== ENCOUNTER 2019-04-17 11:44 | Inpatient (IN) | payer MEDICARE, BC ==
[~2019-04-17] VITALS: Ht 152.4 cm; Wt 64.4 kg
[~2019-04-17 11:44] MED LIST changes: -APIX5TAB3 PO; -DOCU-22 PO; +DULO60CA65 PO; +FURO20TA4 PO; +HYDR-3964 PO; -HYDR-4383 PO; -MAGN70TA2 PO; -NITR0.4T51 SL; +OMEP-50 PO; -PANT20TA3 PO; +POTA20TA19 PO; +VALS80TA32 PO
--- NOTE | 2019-04-17 13:05 | NUR ---
Pt. brought to CT scan at this time by tech.
--- NOTE | 2019-04-17 13:33 | NUR ---
Pt. returned from CT scan at this time
--- NOTE | 2019-04-17 13:35 | NUR ---
Trauma alert cancelled at this time per MD.
--- NOTE | 2019-04-17 13:40 | NUR ---
Lunch relief for primary nurse. Pt returned from CT scan. Pt's labs, ua, EKG, and x-rays are pending.
[2019-04-17 13:53] LABS: BASOPHILS # (AUTO) 0.1 X10'3 (0-0.2); BASOPHILS % (AUTO) 0.6 % (0-1); EOSINOPHILS # (AUTO) 0.1 X10'3 (0-0.9); EOSINOPHILS % (AUTO) 0.7 % (0-6); HEMOGLOBIN 11.5 g/dl (12.0-16.0); LYMPHOCYTES # (AUTO) 1.3 X10'3 (1.1-4.8); LYMPHOCYTES % (AUTO) 10.2 % (21-51); MEAN CORPUSCULAR HEMOGLOBIN 30.3 PG (27.0-31.0); MEAN PLATELET VOLUME 9.5 FL (7.4-10.4); MONOCYTES # (AUTO) 0.9 X10'3 (0-0.9); NEUTROPHILS # (AUTO) 10.4 X10'3 (1.8-7.7); NEUTROPHILS % (AUTO) 81.5 % (42-75); PLATELET COUNT 234 X10'3 (140-440); RED BLOOD COUNT 3.81 X10'6 (4.20-5.60); RED CELL DISTRIBUTION WIDTH 14.9 % (11.5-14.5); WHITE BLOOD COUNT 12.7 X10'3 (4.5-11.0)
--- NOTE | 2019-04-17 14:02 | NUR ---
Note bentley in EDM - 04/17/19 at 1404 by [facility] Flight Crew is here now. Dr. Alcazar is at the bedside giving verbal report to the flight care crew. Dose of mannitol from pharmacy is pending.
[2019-04-17 14:04] LABS: PARTIAL THROMBOPLASTIN TIME 28 SECONDS (22-32)
[2019-04-17 14:06] LABS: ALANINE AMINOTRANSFERASE 17 U/L (12-78); ALBUMIN 3.8 G/DL (3.4-5.0); ALBUMIN/GLOBULIN RATIO 1.3 (1.1-1.5); ALKALINE PHOSPHATASE 93 IU/L (46-116); ANION GAP 9 (8-16); ASPARTATE AMINO TRANSFERASE 24 U/L (10-37); BILIRUBIN,TOTAL 0.6 MG/DL (0.1-1.0); BLOOD UREA NITROGEN 32 MG/DL (7-18); CALCIUM 8.8 MG/DL (8.5-10.1); CHLORIDE 106 MMOL/L (99-107); CREATININE 1.78 MG/DL (0.40-0.90); GLUCOSE 107 MG/DL (70-104); POTASSIUM 3.8 MMOL/L (3.5-5.1); SODIUM 145 MMOL/L (135-145); TOTAL CARBON DIOXIDE 30.2 MMOL/L (24-32); TOTAL PROTEIN 6.7 G/DL (6.4-8.2); eGFR 27 ML/MIN
[2019-04-17 14:09] LABS: TROPONIN I < 0.04 NG/ML (0.0-0.05)
[2019-04-17] MEDS ORDERED: ringers solution, lacted 1,000 ML IV ONE (14:35)
[2019-04-17 14:47] LABS: CLARITY,URINE CLOUDY (Clear); COLOR,URINE YELLOW (Yellow); GLUCOSE, URINE NEGATIVE (Neg); KETONES,URINE NEGATIVE (Neg); LEUKOCYTE ESTERASE ,URINE NEGATIVE (Neg); NITRITES, URINE NEGATIVE (Neg); OCCULT BLOOD,URINE TRACE-LYSED (Neg); PH,URINE 5.5 (4.8-8.0); PROTEIN,URINE NEGATIVE (Neg); UROBILINOGEN,URINE 0.2 E.U/dL (0.2-1.0)
[2019-04-17 14:49] LABS: UA COLLECTION TYPE STRAIGHT CATH
[2019-04-17 15:00] LABS: SQUAMOUS EPITHELIAL CELL,UR MODERATE /LPF (FEW)
[2019-04-17 15:03] LABS: BACTERIA,URINE FEW /HPF (Neg); RBC,URINE 0-2 /HPF (0-2)
[2019-04-17] MEDS ORDERED: magnesium hydroxide 30ml (MOM) UD suspension PO PRN (15:05)
[2019-04-17] MEDS ORDERED: magnesium Cl slow-release 64mg tablet PO PRN (15:05)
[2019-04-17] MEDS ORDERED: ondansetron/PF 4mg/2ml inj IV PRN (15:05)
[2019-04-17] MEDS ORDERED: potassium Cl 20 mEq SR tablet PO PRN ×2 (15:05)
[2019-04-17] MEDS ORDERED: acetaminophen 325mg tablet PO PRN ×2 (15:05)
[2019-04-17] MEDS ORDERED: potassium CL 10mEq/100ml bag 100 ML IV PRN ×2 (15:05)
[2019-04-17] MEDS ORDERED: magnesium 2GM in 50ml NS 50 ML IV PRN (15:05)
[2019-04-17] MEDS ORDERED: mag hydrox/Alum hydrox/simeth 30ml oral suspension PO PRN (15:05)
[2019-04-17] MEDS ORDERED: magnesium 4gm in 100ml NS 100 ML IV PRN (15:05)
[2019-04-17] MEDS ORDERED: NITR100C PO (15:19)
[2019-04-17] MEDS: normal saline 1000ml 1,000 ML IV SCH (15:50)
--- NOTE | 2019-04-17 16:32 | NUR ---
Patient in room ED 6. I have received report from Brennon YIN and had the opportunity to ask questions and assume patient care. Nurse states that patients skin is clear and intact, needs antibiotics ordered.
[2019-04-17] MEDS ORDERED: MAGN64TA13 PO (16:36)
[2019-04-17] MEDS ORDERED: DULO30CA52 PO (16:36)
[2019-04-17] MEDS ORDERED: DOCU-148 PO (16:41)
[2019-04-17 16:55] VITALS: BP 149/131
--- NOTE | 2019-04-17 17:17 | NUR ---
Paged Dr. German to assess patient at bedside. Dr. German states she has encephalopathy, check her BS, watch her O2 saturation, keep fluids going as ordered, states patient is stable and to treat medical issues. Notified Dr. German BP is 149/131, no orders given.
[2019-04-17 17:25] VITALS: BP 168/74
--- NOTE | 2019-04-17 18:14 | NUR ---
Received report from ANNAMARIA Diaz. Assumed patient care with ANNAMARIA Arizmendi. Patient resting comfortably with eyes closed with even respirations on 3L NC. Sitter at bedside. Call light and items of frequent use within reach. Will continue to monitor.
--- NOTE | 2019-04-17 18:14 | NUR ---
Problems reprioritized. Patient report given, questions answered & plan of care reviewed with Rosamaria YIN.
--- NOTE | 2019-04-17 18:34 | NUR ---
Patient in room KERWIN 358. I have received report from ANNAMARIA Diaz and had the opportunity to ask questions and assume patient care.
[2019-04-17 19:00] VITALS: BP 118/72
[2019-04-17] MEDS: heparin, porcine 5000 units/ml vial SQ SCH (19:17)
[2019-04-17] MEDS: metoprolol tartrate 25mg tablet PO SCH (20:55)
[2019-04-17] MEDS: docusate sod 100mg capsule PO SCH (20:55)
[2019-04-18] VITALS: BP 161/92
--- NOTE | 2019-04-18 | NUR ---
Patient is shaking and twitching, unaware if this is baseline. Vital sign: BP 161/92, HR 75, R 16, Temp 97.8F, 95% 3LNC. In no apparent distress. Will continue to asses and monitor patient. Sitter at beside.
[2019-04-18] MEDS: normal saline 1000ml 1,000 ML IV SCH ×3 (00:30→20:33)
[2019-04-18] MEDS: HYDROcodone/acetaminophen 5mg/325mg tablet PO PRN ×2 (00:46→19:28)
[2019-04-18 05:10] VITALS: BP 124/60
--- NOTE | 2019-04-18 06:07 | NUR ---
Problems reprioritized. Patient report given, questions answered & plan of care reviewed with ANNAMARIA Duenas.
--- NOTE | 2019-04-18 06:16 | NUR ---
Problems reprioritized. Patient report given, questions answered & plan of care reviewed with ANNAMARIA Birch.
[2019-04-18 06:25] LABS: BASOPHILS # (AUTO) 0.1 X10'3 (0-0.2); BASOPHILS % (AUTO) 0.7 % (0-1); EOSINOPHILS # (AUTO) 0.1 X10'3 (0-0.9); EOSINOPHILS % (AUTO) 0.9 % (0-6); HEMATOCRIT 23.7 % (35.0-45.0); HEMOGLOBIN 7.8 g/dl (12.0-16.0); LYMPHOCYTES # (AUTO) 1.9 X10'3 (1.1-4.8); LYMPHOCYTES % (AUTO) 15.8 % (21-51); MEAN CORPUSCULAR HEMOGLOBIN 30.7 PG (27.0-31.0); MEAN CORPUSCULAR HGB CONC 33.1 g/dL (33.0-36.5); MEAN CORPUSCULAR VOLUME 92.7 FL (78-98); MEAN PLATELET VOLUME 9.8 FL (7.4-10.4); MONOCYTES # (AUTO) 1.5 X10'3 (0-0.9); MONOCYTES % (AUTO) 12.9 % (2-12); NEUTROPHILS # (AUTO) 8.3 X10'3 (1.8-7.7); NEUTROPHILS % (AUTO) 69.7 % (42-75); PLATELET COUNT 167 X10'3 (140-440); RED BLOOD COUNT 2.55 X10'6 (4.20-5.60); RED CELL DISTRIBUTION WIDTH 14.7 % (11.5-14.5); WHITE BLOOD COUNT 11.9 X10'3 (4.5-11.0)
--- NOTE | 2019-04-18 06:34 | NUR ---
Patient in room [facility]ERWIN 358. I have received report from ANNAMARIA CAZARES and had the opportunity to ask questions and assume patient care.
[2019-04-18 06:37] LABS: ALBUMIN 3.1 G/DL (3.4-5.0); ANION GAP 8 (8-16); BLOOD UREA NITROGEN 33 MG/DL (7-18); BUN/CREATININE RATIO 17.5 (6.6-38.0); CALCIUM 8.4 MG/DL (8.5-10.1); CHLORIDE 108 MMOL/L (99-107); CREATININE 1.89 MG/DL (0.40-0.90); GLUCOSE 106 MG/DL (70-104); POTASSIUM 3.9 MMOL/L (3.5-5.1); SODIUM 144 MMOL/L (135-145); TOTAL CARBON DIOXIDE 27.6 MMOL/L (24-32); eGFR 25 ML/MIN
--- NOTE | 2019-04-18 06:57 | NUR ---
Patient in room KERWIN 358. I have received report from Arlene YIN and had the opportunity to ask questions and assume patient care.
[2019-04-18 07:00] VITALS: BP 120/77
[2019-04-18] MEDS ORDERED: pantoprazole 40mg Tablet.DR PO SCH (07:30)
[2019-04-18] MEDS: K and/or MAG REPLACEMENT MC SCH (08:00)
[2019-04-18] MEDS ORDERED: aspirin 81mg tablet.DR PO SCH (08:00)
[2019-04-18] MEDS: citalopram 20mg tablet PO SCH (08:19)
[2019-04-18] MEDS: magnesium Cl slow-release 64mg tablet PO SCH (08:20)
[2019-04-18] MEDS: montelukast 10mg tablet PO SCH (08:21)
[2019-04-18] MEDS: duloxetine 30mg CAPSULE.DR PO SCH (08:21)
[2019-04-18] MEDS: metoprolol tartrate 25mg tablet PO SCH ×2 (08:22→19:29)
[2019-04-18] MEDS: pravastatin 40mg tablet PO SCH (08:26)
[2019-04-18] MEDS: diltiazem CD 180mg cap (once-daily) PO SCH (08:26)
[2019-04-18] MEDS: levoTHYROXINE 100mcg tablet PO SCH (08:26)
[2019-04-18] MEDS: heparin, porcine 5000 units/ml vial SQ SCH ×2 (08:28→19:30)
[2019-04-18 11:19] VITALS: BP 125/54
[2019-04-18] MEDS: CefTRIAXone/D5W-Rocephin 1gm 50 ML IV SCH (11:25)
--- NOTE | 2019-04-18 12:03 | NUR ---
Problems reprioritized. Patient report given, questions answered & plan of care reviewed with Eyal.
--- NOTE | 2019-04-18 18:25 | NUR ---
Received report from ANNAMARIA Birch. Patient is awake and alert on 3L NC, in no apparent distress. Sitter at bedside. Call light and items of frequent use within reach. Will continue to monitor.
--- NOTE | 2019-04-18 18:49 | NUR ---
Problems reprioritized. Patient report given, questions answered & plan of care reviewed with ANNAMARIA Jacobs.
[2019-04-18 18:54] LABS: TOTAL PROTEIN,URINE RANDOM 19.5 MG/DL
[2019-04-18 18:58] LABS: URINE AMPHETAMINE SCREEN NEGATIVE (Neg); URINE BARBITUATE SCREEN NEGATIVE (Neg); URINE BENZODIAZEPINES SCREEN NEGATIVE (Neg); URINE CANNABINOID SCREEN NEGATIVE (Neg); URINE COCAINE SCREEN NEGATIVE (Neg); URINE METHADONE SCREEN NEGATIVE (Neg); URINE OPIATE SCREEN POSITIVE (Neg); URINE PHENCYCLIDINE SCREEN NEGATIVE (Neg)
--- NOTE | 2019-04-18 19:14 | NUR ---
Problems reprioritized. Patient report given, questions answered & plan of care reviewed with ANNAMARIA Jacobs .
[2019-04-18 20:00] VITALS: BP 113/51
[2019-04-18] MEDS ORDERED: HYDROcodone/acetaminophen 5mg/325mg tablet PO ONE (20:25)
[2019-04-18] MEDS: docusate sod 100mg capsule PO SCH (21:22)
[2019-04-19] VITALS (9 sets, daily range): BP systolic 100–135; BP diastolic 44–64
[2019-04-19 05:16] LABS: BASOPHILS # (AUTO) 0.1 X10'3 (0-0.2); BASOPHILS % (AUTO) 0.7 % (0-1); EOSINOPHILS # (AUTO) 0.3 X10'3 (0-0.9); EOSINOPHILS % (AUTO) 4.6 % (0-6); LYMPHOCYTES # (AUTO) 1.5 X10'3 (1.1-4.8); LYMPHOCYTES % (AUTO) 20.4 % (21-51); MEAN CORPUSCULAR HEMOGLOBIN 31.5 PG (27.0-31.0); MEAN CORPUSCULAR HGB CONC 34.1 g/dL (33.0-36.5); MEAN CORPUSCULAR VOLUME 92.5 FL (78-98); MEAN PLATELET VOLUME 9.8 FL (7.4-10.4); MONOCYTES % (AUTO) 13.1 % (2-12); NEUTROPHILS # (AUTO) 4.6 X10'3 (1.8-7.7); NEUTROPHILS % (AUTO) 61.2 % (42-75); PLATELET COUNT 115 X10'3 (140-440); RED BLOOD COUNT 2.01 X10'6 (4.20-5.60); RED CELL DISTRIBUTION WIDTH 14.8 % (11.5-14.5); WHITE BLOOD COUNT 7.5 X10'3 (4.5-11.0)
[2019-04-19 05:26] LABS: ALBUMIN 2.6 G/DL (3.4-5.0); ANION GAP 6 (8-16); BLOOD UREA NITROGEN 25 MG/DL (7-18); BUN/CREATININE RATIO 17.2 (6.6-38.0); CALCIUM 7.7 MG/DL (8.5-10.1); CHLORIDE 111 MMOL/L (99-107); CREATININE 1.45 MG/DL (0.40-0.90); GLUCOSE 92 MG/DL (70-104); MAGNESIUM 1.8 MG/DL (1.5-2.4); POTASSIUM 3.5 MMOL/L (3.5-5.1); SODIUM 146 MMOL/L (135-145); TOTAL CARBON DIOXIDE 28.7 MMOL/L (24-32); eGFR 34 ML/MIN
[2019-04-19 05:30] LABS: HEMATOCRIT 18.6 % (35.0-45.0); HEMOGLOBIN 6.3 g/dl (12.0-16.0)
--- NOTE | 2019-04-19 06:42 | NUR ---
Problems reprioritized. Patient report given, questions answered & plan of care reviewed with ANNAMARIA Hernandez and ANNAMARIA Ortiz
[2019-04-19] MEDS: normal saline 1000ml 1,000 ML IV SCH ×2 (07:02→20:59)
[2019-04-19] MEDS: K and/or MAG REPLACEMENT MC SCH (07:25)
[2019-04-19] MEDS: CefTRIAXone/D5W-Rocephin 1gm 50 ML IV SCH (08:40)
[2019-04-19] MEDS: montelukast 10mg tablet PO SCH (08:41)
[2019-04-19] MEDS: duloxetine 30mg CAPSULE.DR PO SCH (08:41)
[2019-04-19] MEDS: magnesium Cl slow-release 64mg tablet PO SCH (08:41)
[2019-04-19] MEDS: levoTHYROXINE 100mcg tablet PO SCH (08:41)
[2019-04-19] MEDS: diltiazem CD 180mg cap (once-daily) PO SCH (08:41)
[2019-04-19] MEDS: citalopram 20mg tablet PO SCH (08:41)
[2019-04-19] MEDS: metoprolol tartrate 25mg tablet PO SCH ×2 (08:42→21:00)
[2019-04-19] MEDS: HYDROcodone/acetaminophen 5mg/325mg tablet PO PRN ×3 (08:44→23:13)
[2019-04-19] MEDS: pravastatin 40mg tablet PO SCH (11:34)
[2019-04-19] MEDS: pantoprazole 40 MG vial IV SCH ×2 (11:34→21:00)
[2019-04-19 13:49] LABS: % IRON SATURATION 11 % (11-46); IRON 21 UG/DL (49-151); TOTAL IRON BINDING CAPACITY 194 UG/DL (259-388)
[2019-04-19 14:10] LABS: FERRITIN 82 NG/ML (8-252)
--- NOTE | 2019-04-19 17:09 | NUR ---
Bhanu trigger: Bhanu 12; skin intact. Addendum: 04/19/19 at [address] Amended: Links added.
[2019-04-19 18:13] LABS: HEMATOCRIT 22.9 % (35.0-45.0); HEMOGLOBIN 7.8 g/dl (12.0-16.0); MEAN CORPUSCULAR HEMOGLOBIN 31.1 PG (27.0-31.0); MEAN CORPUSCULAR HGB CONC 33.8 g/dL (33.0-36.5); PLATELET COUNT 124 X10'3 (140-440); RED BLOOD COUNT 2.49 X10'6 (4.20-5.60); WHITE BLOOD COUNT 8.3 X10'3 (4.5-11.0)
--- NOTE | 2019-04-19 18:35 | NUR ---
Problems reprioritized. Patient report given, questions answered & plan of care reviewed with ANNAMARIA PEREZ.
--- NOTE | 2019-04-19 18:37 | NUR ---
Patient in room KERWIN 358. I have received report from Diana YIN and had the opportunity to ask questions and assume patient care.
[2019-04-19] MEDS: docusate sod 100mg capsule PO SCH (21:00)
[2019-04-19] MEDS: lactobacillus rhamnosus 10,000 MMU CELLS/CAPSULE PO SCH (21:00)
[2019-04-20 00:13] VITALS: BP 132/58
[2019-04-20] MEDS: normal saline 1000ml 1,000 ML IV SCH ×3 (03:02→23:02)
[2019-04-20 05:51] LABS: BASOPHILS # (AUTO) 0.1 X10'3 (0-0.2); BASOPHILS % (AUTO) 0.9 % (0-1); EOSINOPHILS # (AUTO) 0.4 X10'3 (0-0.9); EOSINOPHILS % (AUTO) 5.8 % (0-6); HEMATOCRIT 23.7 % (35.0-45.0); HEMOGLOBIN 7.9 g/dl (12.0-16.0); LYMPHOCYTES # (AUTO) 1.6 X10'3 (1.1-4.8); LYMPHOCYTES % (AUTO) 21.5 % (21-51); MEAN CORPUSCULAR HEMOGLOBIN 30.7 PG (27.0-31.0); MEAN CORPUSCULAR HGB CONC 33.5 g/dL (33.0-36.5); MEAN CORPUSCULAR VOLUME 91.7 FL (78-98); MEAN PLATELET VOLUME 9.4 FL (7.4-10.4); MONOCYTES # (AUTO) 0.9 X10'3 (0-0.9); MONOCYTES % (AUTO) 12.7 % (2-12); NEUTROPHILS # (AUTO) 4.4 X10'3 (1.8-7.7); NEUTROPHILS % (AUTO) 59.1 % (42-75); PLATELET COUNT 120 X10'3 (140-440); RED BLOOD COUNT 2.58 X10'6 (4.20-5.60); RED CELL DISTRIBUTION WIDTH 15.5 % (11.5-14.5); WHITE BLOOD COUNT 7.5 X10'3 (4.5-11.0)
[2019-04-20 06:03] LABS: ALBUMIN 2.5 G/DL (3.4-5.0); ANION GAP 6 (8-16); BLOOD UREA NITROGEN 14 MG/DL (7-18); BUN/CREATININE RATIO 12.4 (6.6-38.0); CALCIUM 7.9 MG/DL (8.5-10.1); CHLORIDE 112 MMOL/L (99-107); CREATININE 1.13 MG/DL (0.40-0.90); GLUCOSE 91 MG/DL (70-104); MAGNESIUM 1.6 MG/DL (1.5-2.4); SODIUM 145 MMOL/L (135-145); TOTAL CARBON DIOXIDE 27.1 MMOL/L (24-32); eGFR 46 ML/MIN
--- NOTE | 2019-04-20 06:44 | NUR ---
Problems reprioritized. Patient report given, questions answered & plan of care reviewed with Jacklyn YIN.
[2019-04-20] MEDS: CefTRIAXone/D5W-Rocephin 1gm 50 ML IV SCH (07:42)
[2019-04-20] MEDS: pantoprazole 40 MG vial IV SCH ×2 (07:43→19:37)
[2019-04-20] MEDS: diltiazem CD 180mg cap (once-daily) PO SCH (07:48)
[2019-04-20] MEDS: HYDROcodone/acetaminophen 5mg/325mg tablet PO PRN ×2 (07:49→19:36)
[2019-04-20] MEDS: pravastatin 40mg tablet PO SCH (07:49)
[2019-04-20] MEDS: citalopram 20mg tablet PO SCH (07:50)
[2019-04-20] MEDS: lactobacillus rhamnosus 10,000 MMU CELLS/CAPSULE PO SCH ×2 (07:50→19:35)
[2019-04-20] MEDS: magnesium Cl slow-release 64mg tablet PO SCH (07:50)
[2019-04-20] MEDS: montelukast 10mg tablet PO SCH (07:50)
[2019-04-20] MEDS: duloxetine 30mg CAPSULE.DR PO SCH (07:50)
[2019-04-20] MEDS: metoprolol tartrate 25mg tablet PO SCH ×2 (07:51→19:36)
[2019-04-20] MEDS: levoTHYROXINE 100mcg tablet PO SCH (07:52)
[2019-04-20] MEDS: K and/or MAG REPLACEMENT MC SCH (07:54)
[2019-04-20 08:00] VITALS: BP 142/60
[2019-04-20 11:00] VITALS: BP 113/50
[2019-04-20] MEDS: magnesium hydroxide 30ml (MOM) UD suspension PO SCH ×2 (12:26→19:36)
[2019-04-20 16:28] LABS: OCCULT BLOOD STOOL NEGATIVE (Neg)
[2019-04-20 17:48] LABS: HEMATOCRIT 25.2 % (35.0-45.0); HEMOGLOBIN 8.5 g/dl (12.0-16.0); MEAN CORPUSCULAR HEMOGLOBIN 30.9 PG (27.0-31.0); MEAN CORPUSCULAR HGB CONC 33.7 g/dL (33.0-36.5); MEAN CORPUSCULAR VOLUME 91.6 FL (78-98); MEAN PLATELET VOLUME 9.8 FL (7.4-10.4); PLATELET COUNT 129 X10'3 (140-440); RED BLOOD COUNT 2.75 X10'6 (4.20-5.60); WHITE BLOOD COUNT 9.2 X10'3 (4.5-11.0)
--- NOTE | 2019-04-20 18:53 | NUR ---
Patient in room KERWIN 358. I have received report from Jacklyn YIN and had the opportunity to ask questions and assume patient care.
[2019-04-20] MEDS: docusate sod 100mg capsule PO SCH (19:35)
--- NOTE | 2019-04-20 19:42 | NUR ---
Problems reprioritized. Patient report given, questions answered & plan of care reviewed with Kathe RN.
[2019-04-20 20:00] VITALS: BP 156/80
[2019-04-21] VITALS: BP 139/71
[2019-04-21] MEDS: HYDROcodone/acetaminophen 5mg/325mg tablet PO PRN ×2 (00:16→10:46)
[2019-04-21 06:45] LABS: BASOPHILS # (AUTO) 0.1 X10'3 (0-0.2); BASOPHILS % (AUTO) 0.8 % (0-1); EOSINOPHILS # (AUTO) 0.4 X10'3 (0-0.9); EOSINOPHILS % (AUTO) 5.3 % (0-6); HEMATOCRIT 23.9 % (35.0-45.0); LYMPHOCYTES # (AUTO) 1.5 X10'3 (1.1-4.8); LYMPHOCYTES % (AUTO) 18.3 % (21-51); MEAN CORPUSCULAR HEMOGLOBIN 30.8 PG (27.0-31.0); MEAN CORPUSCULAR HGB CONC 33.6 g/dL (33.0-36.5); MEAN CORPUSCULAR VOLUME 91.7 FL (78-98); MONOCYTES # (AUTO) 0.8 X10'3 (0-0.9); MONOCYTES % (AUTO) 9.5 % (2-12); NEUTROPHILS # (AUTO) 5.3 X10'3 (1.8-7.7); NEUTROPHILS % (AUTO) 66.1 % (42-75); PLATELET COUNT 146 X10'3 (140-440); RED BLOOD COUNT 2.61 X10'6 (4.20-5.60); RED CELL DISTRIBUTION WIDTH 15.2 % (11.5-14.5)
--- NOTE | 2019-04-21 06:45 | NUR ---
Problems reprioritized. Patient report given, questions answered & plan of care reviewed with Анна YIN.
[2019-04-21 06:55] LABS: ALBUMIN 2.4 G/DL (3.4-5.0); ANION GAP 4 (8-16); BLOOD UREA NITROGEN 7 MG/DL (7-18); BUN/CREATININE RATIO 7.7 (6.6-38.0); CALCIUM 7.9 MG/DL (8.5-10.1); CHLORIDE 111 MMOL/L (99-107); CREATININE 0.91 MG/DL (0.40-0.90); GLUCOSE 86 MG/DL (70-104); SODIUM 144 MMOL/L (135-145); TOTAL CARBON DIOXIDE 29.5 MMOL/L (24-32); eGFR 59 ML/MIN
[2019-04-21 07:00] VITALS: BP 154/71
[2019-04-21] MEDS: K and/or MAG REPLACEMENT MC SCH (08:00)
[2019-04-21] MEDS: magnesium Cl slow-release 64mg tablet PO SCH (08:09)
[2019-04-21] MEDS: magnesium hydroxide 30ml (MOM) UD suspension PO SCH (08:09)
[2019-04-21] MEDS: citalopram 20mg tablet PO SCH (08:09)
[2019-04-21] MEDS: diltiazem CD 180mg cap (once-daily) PO SCH (08:10)
[2019-04-21] MEDS: duloxetine 30mg CAPSULE.DR PO SCH (08:12)
[2019-04-21] MEDS: metoprolol tartrate 25mg tablet PO SCH (08:12)
[2019-04-21] MEDS: lactobacillus rhamnosus 10,000 MMU CELLS/CAPSULE PO SCH (08:12)
[2019-04-21] MEDS: montelukast 10mg tablet PO SCH (08:13)
[2019-04-21] MEDS: levoTHYROXINE 100mcg tablet PO SCH (08:13)
[2019-04-21] MEDS: pravastatin 40mg tablet PO SCH (08:13)
[2019-04-21] MEDS: CefTRIAXone/D5W-Rocephin 1gm 50 ML IV SCH (08:33)
[2019-04-21] MEDS: pantoprazole 40 MG vial IV SCH (08:38)
[2019-04-21] MEDS: normal saline 1000ml 1,000 ML IV SCH (09:02)
--- NOTE | 2019-04-21 10:47 | NUR ---
PRESSURE ULCER EDUCATION: DEFINITION: A pressure ulcer is an area of skin that breaks down when you stay in one position too long. The constant pressure against the skin reduces the blood flow to that area and the affected tissue dies. CAUSES: "Being bedridden or in a wheelchair "Fragile skin "Having a chronic condition, such as diabetes or vascular disease "Inability to move certain parts of your body without assistance "Older age "Incontinence of urine or stool SYMPTOMS: "A reddened area that DOES NOT turn white when pressed on - this can be the beginning of a pressure ulcer "A blister, deep sore or a crater - these can be advanced pressure ulcers FIRST AID: "Relieve the pressure on this area "Keep the area clean and dry "Call your primary doctor if you see any of the above symptoms "DO NOT massage the area "DO NOT use a donut shaped or ring shaped pillow- these actually interfere with the blood flow and cause complications PREVENTION: "Check for pressure ulcers everyday "Change position at least every two hours to relieve pressure "Use items that help relieve pressure- pillows, sheepskin, foam padding, and powders. "Keep skin clean and dry "Eat healthy well balanced meals "Exercise daily IF YOU SEE ANY OF THESE SYMPTOMS WHILE IN THE HOSPITAL - TELL YOUR NURSE IMMEDIATELY. IF YOU SEE ANY OF THESE SYMPTOMS WHILE AT HOME OR HAVE ANY QUESTIONS OR CONCERNS ABOUT PRESSURE ULCERS - CALL YOUR PRIMARY DOCTOR IMMEDIATELY. Addendum: 04/21/19 at 1047 by Shanice Ward RN Amended: Links added.
[2019-04-21 12:00] VITALS: BP 165/64
--- NOTE | 2019-04-21 13:13 | NUR ---
Patient ready for pickup. Report called to Netta leone [place]. Awaiting rock picker marjorie.
--- NOTE | 2019-04-21 13:41 | NUR ---
Patient transferred to [facility] via [facility]. No belongings in room, roomate took them home. IV removed. Patient stable and appropriate for transfer.
--- NOTE | 2019-04-21 17:20 | NUR ---
Student documentation: I have reviewed all interventions, assessments performed and documented by Nicolas Calderon
[2019-04-21] MEDS ORDERED: pantoprazole 40mg Tablet.DR PO SCH (20:00)
== END 2019-04-21 13:30 | DRG 682 ==
LOC: ER 11:45 → ED HOLD 15:02 → EDBEDREQ 16:19 → SUR 3N 16:56
PROVIDERS: ADMIT Hospitalist; ATTEND Internal Medicine
PROC: 30233N1 Transfusion of Nonautologous Red Blood Cells into Peripheral Vein, Percutaneous Approach (ICD-10-PCS; principal; 2019-04-19)
DX: N17.9 Acute kidney failure, unspecified (principal); G93.41 Metabolic encephalopathy; N39.0 Urinary tract infection, site not specified; R44.3 Hallucinations, unspecified; K92.2 Gastrointestinal hemorrhage, unspecified; B96.20 Unspecified Escherichia coli [E. coli] as the cause of diseases classified elsewhere; E03.9 Hypothyroidism, unspecified; E78.5 Hyperlipidemia, unspecified; F32.9 Major depressive disorder, single episode, unspecified; F41.9 Anxiety disorder, unspecified; G89.29 Other chronic pain; I48.0 Paroxysmal atrial fibrillation; I12.9 Hypertensive chronic kidney disease with stage 1 through stage 4 chronic kidney disease, or unspecified chronic kidney disease; E86.0 Dehydration; D50.9 Iron deficiency anemia, unspecified; J44.9 Chronic obstructive pulmonary disease, unspecified; W01.0XXA Fall on same level from slipping, tripping and stumbling without subsequent striking against object, initial encounter; Z60.2 Problems related to living alone; Z79.01 Long term (current) use of anticoagulants; Z91.018 Allergy to other foods; Z79.899 Other long term (current) drug therapy; Z87.440 Personal history of urinary (tract) infections; Z90.710 Acquired absence of both cervix and uterus; Z79.82 Long term (current) use of aspirin; Y93.89 Activity, other specified; Y92.89 Other specified places as the place of occurrence of the external cause; Y99.8 Other external cause status; Z79.890 Hormone replacement therapy
CPT/HCPCS: 36415; 70450; 71045; 72125; 72131; 73030; 76775; 80048; 80053; 80305; 81001; 82272; 82570; 82728; 82948; 83540; 83550; 83735; 84156; 84300; 84484; 85025; 85027; 85610; 85730; 86885; 86900; 86901; 86920; 87077; 87081; 87088; 87186; 93005; 97161; 97530; 99285; C9113; G0378; J0696; J1644; J7030; J7120; P9016

== ENCOUNTER 2019-09-02 17:12 | Emergency (ER) | payer MEDICARE, BC ==
[~2019-09-02] VITALS: Ht 152.4 cm; Wt 60.0 kg
[~2019-09-02 17:12] MED LIST changes: +APIX5TAB3 PO; +DOCU-148 PO; +DULO30CA52 PO; -DULO60CA65 PO; -HYDR-3964 PO; +MAGN64TA13 PO; +NITR100C PO; +POTA-82 PO; -POTA20TA19 PO
--- NOTE | 2019-09-02 18:53 | NUR ---
back from CT
[2019-09-02 19:43] VITALS: BP 146/69
== END 2019-09-02 19:47 | disposition home or self-care (01) ==
LOC: ER 17:13
DX: S00.83XA Contusion of other part of head, initial encounter (principal); I10 Essential (primary) hypertension; J44.9 Chronic obstructive pulmonary disease, unspecified; E03.9 Hypothyroidism, unspecified; G89.29 Other chronic pain; M54.9 Dorsalgia, unspecified; F41.9 Anxiety disorder, unspecified; Z90.710 Acquired absence of both cervix and uterus; Z91.81 History of falling; Z60.2 Problems related to living alone; Z79.82 Long term (current) use of aspirin; Z79.899 Other long term (current) drug therapy; W06.XXXA Fall from bed, initial encounter; Y93.89 Activity, other specified; Y92.89 Other specified places as the place of occurrence of the external cause; Y99.8 Other external cause status
CPT/HCPCS: 70450; 99284

== ENCOUNTER 2020-06-08 19:15 | Inpatient (IN) | payer MEDICARE, BC ==
[~2020-06-08] VITALS: Ht 152.4 cm; Wt 67.0 kg
[~2020-06-08 19:15] MED LIST changes: -APIX5TAB3 PO; -ASPI-1130 PO; +ASPI-1397 PO; -CITA20TA28 PO; +DULO-31 PO; -DULO30CA52 PO; -FURO20TA4 PO; +HYDR-3686 PO; -MAGN64TA13 PO; -POTA-82 PO
[2020-06-08 20:28] LABS: BASOPHILS # (AUTO) 0.1 X10'3 (0-0.2); BASOPHILS % (AUTO) 0.9 % (0-1); EOSINOPHILS % (AUTO) 0.3 % (0-6); HEMATOCRIT 35.7 % (35.0-45.0); HEMOGLOBIN 11.7 g/dl (12.0-16.0); LYMPHOCYTES # (AUTO) 0.9 X10'3 (1.1-4.8); LYMPHOCYTES % (AUTO) 13.7 % (21-51); MEAN CORPUSCULAR HEMOGLOBIN 30.4 PG (27.0-31.0); MEAN CORPUSCULAR HGB CONC 32.8 g/dL (33.0-36.5); MEAN CORPUSCULAR VOLUME 92.8 FL (78-98); MEAN PLATELET VOLUME 9.3 FL (7.4-10.4); MONOCYTES # (AUTO) 0.7 X10'3 (0-0.9); MONOCYTES % (AUTO) 10.2 % (2-12); NEUTROPHILS % (AUTO) 74.9 % (42-75); PLATELET COUNT 144 X10'3 (140-440); RED BLOOD COUNT 3.85 X10'6 (4.20-5.60); RED CELL DISTRIBUTION WIDTH 13.4 % (11.5-14.5); WHITE BLOOD COUNT 6.7 X10'3 (4.5-11.0)
[2020-06-08 20:32] LABS: ALANINE AMINOTRANSFERASE 16 U/L (12-78); ALBUMIN 3.5 G/DL (3.4-5.0); ALBUMIN/GLOBULIN RATIO 1.3 (1.1-1.5); ALKALINE PHOSPHATASE 78 IU/L (46-116); ANION GAP 11 (8-16); ASPARTATE AMINO TRANSFERASE 18 U/L (10-37); BILIRUBIN,TOTAL 0.2 MG/DL (0.1-1.0); BLOOD UREA NITROGEN 22 MG/DL (7-18); BUN/CREATININE RATIO 13.5 (6.6-38.0); CALCIUM 8.3 MG/DL (8.5-10.1); CHLORIDE 110 MMOL/L (99-107); CREATININE 1.63 MG/DL (0.40-0.90); GLUCOSE 93 MG/DL (70-104); LIPASE 102 U/L (73-393); POTASSIUM 4.9 MMOL/L (3.5-5.1); SODIUM 145 MMOL/L (135-145); TOTAL CARBON DIOXIDE 24.2 MMOL/L (24-32); TOTAL PROTEIN 6.2 G/DL (6.4-8.2); eGFR 30 ML/MIN
[2020-06-08 21:04] LABS: CLARITY,URINE CLEAR (Clear); COLOR,URINE YELLOW (Yellow); GLUCOSE, URINE NEGATIVE (Neg); KETONES,URINE NEGATIVE (Neg); LEUKOCYTE ESTERASE ,URINE TRACE (Neg); NITRITES, URINE NEGATIVE (Neg); OCCULT BLOOD,URINE NEGATIVE (Neg); PH,URINE 6.5 (4.8-8.0); PROTEIN,URINE NEGATIVE (Neg); UROBILINOGEN,URINE 0.2 E.U/dL (0.2-1.0)
[2020-06-08 21:06] LABS: UA COLLECTION TYPE STRAIGHT CATH
[2020-06-08 21:19] LABS: BACTERIA,URINE 1+ /HPF (Neg); MUCUS STRANDS FEW /LPF (Neg); RBC,URINE 0-2 /HPF (0-2); SQUAMOUS EPITHELIAL CELL,UR FEW /LPF (FEW); TRANSITIONAL EPI CELLS,URINE FEW /HPF
[2020-06-08] MEDS ORDERED: dexamethasone 4mg/ml inj IM ONE (21:45)
[2020-06-08] MEDS ORDERED: normal saline 1000ML IV soln IVB ONE (21:45)
[2020-06-08] MEDS ORDERED: dexamethasone 4mg/ml inj IM SCH (21:45)
--- NOTE | 2020-06-08 21:58 | NUR ---
PT ALREADY HAD A LITER OF NS. PA INFORMED. STATED TO HOLD OFF ON THE 500CC UNLESS RN NEEDS IT FOR PRESSURE SUPPORT OR INCREASE IN DIARRHEA.
[2020-06-08] MEDS ORDERED: [UNRECOGNIZED DRUG - CODE] PO (22:12)
[2020-06-08] MEDS ORDERED: POTA99TA25 PO (22:17)
[2020-06-08] MEDS ORDERED: CHOL100046 PO (22:17)
[2020-06-08] MEDS ORDERED: CARB1TAB23 PO (22:17)
[2020-06-08] MEDS ORDERED: CITA20TA28 PO (22:17)
--- NOTE | 2020-06-08 22:22 | NUR ---
VISITING WITH THE PATIENT. GOT HER UP TO THE BR. SHE HAD SOME DIARRHEA BUT MOSTLY FORMED STOOL. SHE VOIDED. CHUX AND DRAW SHEET CHANGED. SHE TALKS ABOUT HER DOG. 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
--- NOTE | 2020-06-08 23:08 | NUR ---
CHECKED IN ON HER. GAVE HER A PHONE AND A PILLOW. SHE SAID SHE IS DOING WELL.
[2020-06-09] MEDS ORDERED: magnesium hydroxide 30ml (MOM) UD suspension PO PRN (00:05)
[2020-06-09] MEDS ORDERED: ondansetron/PF 4mg/2ml inj IV PRN (00:05)
[2020-06-09] MEDS ORDERED: acetaminophen 325mg tablet PO PRN (00:05)
[2020-06-09] MEDS ORDERED: normal saline 1000ml 1,000 ML IV SCH (00:05)
[2020-06-09] MEDS ORDERED: mag hydrox/Alum hydrox/simeth 30ml oral suspension PO PRN (00:05)
[2020-06-09 00:10] LABS: C-REACTIVE PROTEIN 0.54 MG/DL (0.0-0.5); FERRITIN 118 NG/ML (8-252); LACTATE DEHYDROGENASE 184 U/L (81-234)
[2020-06-09 00:53] LABS: D-DIMER 0.92 MG/L FEU (0-0.50)
[2020-06-09 01:15] VITALS: BP 185/96
[2020-06-09] MEDS ORDERED: amLODIPine 2.5mg tablet PO ONE (01:30)
[2020-06-09 06:00] VITALS: BP 152/66
--- NOTE | 2020-06-09 06:18 | NUR ---
Problems reprioritized. Patient report given, questions answered & plan of care reviewed with Albino YIN.
[2020-06-09] MEDS ORDERED: levoTHYROXINE 25mcg tablet PO SCH (07:00)
[2020-06-09] MEDS ORDERED: methenamine hippurate 1gm tablet PO SCH (08:00)
[2020-06-09] MEDS ORDERED: dexamethasone inj 6 MG in normal saline 100ml IV soln 100 ML IV SCH (08:00)
[2020-06-09] MEDS ORDERED: metoprolol tartrate 25mg tablet PO SCH (08:00)
[2020-06-09] MEDS ORDERED: citalopram 20mg tablet PO SCH (08:00)
[2020-06-09] MEDS ORDERED: carbidoba-levodopa 25-100mg tablet PO SCH (08:00)
[2020-06-09] MEDS ORDERED: diltiazem CD 180mg cap (once-daily) PO SCH (08:00)
[2020-06-09] MEDS ORDERED: pantoprazole 40mg Tablet.DR PO SCH (08:00)
[2020-06-09] MEDS ORDERED: aspirin 81mg tablet.DR PO SCH (08:00)
[2020-06-09] MEDS ORDERED: duloxetine 30mg CAPSULE.DR PO SCH (08:00)
[2020-06-09] MEDS ORDERED: pravastatin 40mg tablet PO SCH (08:00)
[2020-06-09] MEDS ORDERED: montelukast 10mg tablet PO SCH (08:00)
[2020-06-09] MEDS ORDERED: enoxaparin 40mg/0.4ml syringe SUBCUT SCH (08:00)
[2020-06-09] MEDS ORDERED: losartan 50mg tablet PO SCH (08:00)
[2020-06-09] MEDS ORDERED: heparin, porcine 5000 units/ml vial SQ SCH (08:00)
[2020-06-09 10:00] VITALS: BP 173/78
[2020-06-09] MEDS ORDERED: DEXA1TAB PO (10:50)
[2020-06-09] MEDS ORDERED: hydrOXYzine 25 MG tablet PO SCH (21:00)
[2020-06-12] MEDS ORDERED: POTA-82 PO (14:54)
[2020-06-13] MEDS ORDERED: METH1TAB32 PO (11:51)
== END 2020-06-09 14:00 | disposition home health service (06) | DRG 177 ==
LOC: ER 19:15 → ED HOLD 06-09 00:03 → ORTHO 4S 06-09 01:00
PROVIDERS: ADMIT Internal Medicine; ATTEND Family Medicine
DX: U07.1 COVID-19 (principal); J12.89 Other viral pneumonia; N17.9 Acute kidney failure, unspecified; E03.9 Hypothyroidism, unspecified; G20 Parkinson's disease; I12.9 Hypertensive chronic kidney disease with stage 1 through stage 4 chronic kidney disease, or unspecified chronic kidney disease; F41.9 Anxiety disorder, unspecified; G89.29 Other chronic pain; R82.81 Pyuria; M54.9 Dorsalgia, unspecified; I48.91 Unspecified atrial fibrillation; J44.9 Chronic obstructive pulmonary disease, unspecified; N18.9 Chronic kidney disease, unspecified; Z79.890 Hormone replacement therapy; Z79.899 Other long term (current) drug therapy; Z87.891 Personal history of nicotine dependence; Z90.710 Acquired absence of both cervix and uterus; Z88.8 Allergy status to other drugs, medicaments and biological substances; Z91.018 Allergy to other foods; Z99.81 Dependence on supplemental oxygen
CPT/HCPCS: 36415; 71045; 80053; 81001; 82728; 83615; 83690; 84145; 85025; 85379; 85384; 86140; 87077; 87081; 87088; 87186; 87324; 87449; 87635; 96372; 99285; C9803; G0378; J1100; J1644; J7030

== ENCOUNTER 2021-09-28 14:12 | Inpatient (IN) | payer MEDICARE, BC ==
[~2021-09-28] VITALS: Ht 152.4 cm; Wt 78.9 kg
[~2021-09-28 14:12] MED LIST changes: +ALBU2.5V12 NEB; -ASPI-1397 PO; +ASPI81TA52 PO; +ATOR10TA10 PO; +CARB1TAB36 PO; +CHOL10008 PO; +CITA20TA28 PO; +CYAN500T71 PO; -DILT-36 PO; +DILT180C66 PO; -DOCU-148 PO; -DULO-31 PO; +DULO60CA65 PO; +FURO20TA4 PO; +GABA-530 PO; -HYDR-3686 PO; -LEVO100T PO; +LEVO50TA8 PO; +LOP25T PO; +METH1TAB32 PO; -METO25TA6 PO; +METO50TA17 PO; +MONT-40 PO; -MONT10TA21 PO; +MULT-1074 PO; -NITR100C PO; -OMEP-50 PO; +OMEP20CA15 PO; +POTA-207 PO; -PRAV40TA3 PO; +RIVA20TA PO; +VALS40TA2 PO; -VALS80TA32 PO
[2021-09-28] MEDS ORDERED: methylPREDNISolone sod succ 125mg/2ml vial IV ONE (14:20)
[2021-09-28] MEDS ORDERED: albuterol 2.5 MG/3 ML nebule NEB ONE (14:20)
[2021-09-28] MEDS ORDERED: ipratropium/albuterol 3ml nebule NEB ONE (14:20)
[2021-09-28] MEDS ORDERED: furosemide 40mg/4ml inj IV ONE (14:20)
[2021-09-28] MEDS ORDERED: vancomycin/NS 1 GM ADD-VANTAGE 250 ML IV ONE (14:30)
[2021-09-28] MEDS ORDERED: piperacillin/tazo 3.375gm/50ml 50 ML IV ONE (14:30)
[2021-09-28 14:32] LABS: ABG HCO3 28.6 mmol/L (22.0-26.0); ABG OXYGEN SATURATION 91.6 % (94-97); ABG PCO2 (T) 60.8 mmHg (32.0-45.0); ABG PO2 (T) 67.6 mmHg (75.0-100.0); ALLEN'S TEST POSITIVE; FCOHb 0.2 % (0.0-3.9); FLOW 15 L/min; FMetHb 0.2 % (0.0-1.5); FO2Hb 91.2 % (94-97)
[2021-09-28 14:45] LABS: BASOPHILS % (AUTO) 0.3 % (0-1); EOSINOPHILS # (AUTO) 0.1 X10'3 (0-0.9); EOSINOPHILS % (AUTO) 0.8 % (0-6); HEMATOCRIT 30.4 % (35.0-45.0); HEMOGLOBIN 10.3 g/dl (12.0-16.0); LYMPHOCYTES # (AUTO) 1.1 X10'3 (1.1-4.8); LYMPHOCYTES % (AUTO) 7.7 % (21-51); MEAN CORPUSCULAR HEMOGLOBIN 30.5 PG (27.0-31.0); MEAN CORPUSCULAR HGB CONC 33.7 g/dL (33.0-36.5); MEAN CORPUSCULAR VOLUME 90.5 FL (78-98); MEAN PLATELET VOLUME 7.6 FL (7.4-10.4); MONOCYTES # (AUTO) 0.8 X10'3 (0-0.9); MONOCYTES % (AUTO) 5.6 % (2-12); NEUTROPHILS # (AUTO) 11.9 X10'3 (1.8-7.7); NEUTROPHILS % (AUTO) 85.6 % (42-75); PLATELET COUNT 405 X10'3 (140-440); RED BLOOD COUNT 3.36 X10'6 (4.20-5.60); RED CELL DISTRIBUTION WIDTH 14.1 % (11.5-14.5); WHITE BLOOD COUNT 13.8 X10'3 (4.5-11.0)
[2021-09-28 15:11] LABS: ALANINE AMINOTRANSFERASE 21 U/L (12-78); ALBUMIN 2.8 G/DL (3.4-5.0); ALBUMIN/GLOBULIN RATIO 0.8 (1.1-1.5); ALKALINE PHOSPHATASE 79 IU/L (46-116); ANION GAP 8 (8-16); ASPARTATE AMINO TRANSFERASE 21 U/L (10-37); BILIRUBIN,TOTAL 0.5 MG/DL (0.1-1.0); BLOOD UREA NITROGEN 11 MG/DL (7-18); CALCIUM 8.7 MG/DL (8.5-10.1); CHLORIDE 101 MMOL/L (99-107); GLUCOSE 147 MG/DL (70-104); POTASSIUM 4.4 MMOL/L (3.5-5.1); SODIUM 140 MMOL/L (135-145); TOTAL CARBON DIOXIDE 31.4 MMOL/L (24-32); TOTAL PROTEIN 6.2 G/DL (6.4-8.2); eGFR 47 ML/MIN
[2021-09-28 16:00] LABS: ABG BASE EXCESS 3.2 mmol/L (-2.0-2.0); ABG HCO3 27.9 mmol/L (22.0-26.0); ABG OXYGEN SATURATION 88.6 % (94-97); ABG PCO2 (T) 43.1 mmHg (32.0-45.0); ABG PO2 (T) 54.6 mmHg (75.0-100.0); ALLEN'S TEST POSITIVE; FCOHb 0.3 % (0.0-3.9); FMetHb 0.3 % (0.0-1.5); FO2Hb 88.1 % (94-97); RESPIRATORY RATE 12 b/min; TOTAL HEMOGLOBIN 10.8 G/dl (12.0-16.0)
[2021-09-28] MEDS ORDERED: potassium Cl 20 mEq SR tablet PO PRN ×2 (16:10)
[2021-09-28] MEDS ORDERED: ondansetron/PF 4mg/2ml inj IV PRN (16:10)
[2021-09-28] MEDS ORDERED: potassium CL 10mEq/100ml bag 100 ML IV PRN (16:10)
[2021-09-28] MEDS ORDERED: magnesium 2GM in 50ml NS 50 ML IV PRN (16:10)
[2021-09-28] MEDS ORDERED: magnesium 4gm in 100ml NS 100 ML IV PRN (16:10)
[2021-09-28] MEDS ORDERED: magnesium Cl slow-release 64mg tablet PO PRN (16:10)
[2021-09-28 18:08] LABS: POTASSIUM 4.4 MMOL/L (3.5-5.1)
[2021-09-28] MEDS: normal saline 1000ml 1,000 ML IV SCH (18:15)
--- NOTE | 2021-09-28 19:12 | NUR ---
Pt pink, no acute/resp distress. Off going RN reports pt is DNR but we do not have copies of the paperwork for DNR. Pulse Ox on ear keeps falling off. Tried repositioning pulse ox probe with some success for improving waveform and sensor bean picker. PIV site c/d/i s complication or adverse reaction.
[2021-09-28] MEDS: cefTRIAXone 1g/NS 100ml IVPB 100 ML IV SCH (19:20)
[2021-09-28] MEDS: K and/or MAG REPLACEMENT MC SCH (19:20)
[2021-09-28] MEDS ORDERED: azithromycin/NS 500mg/250ml 250 ML IV ONE (19:20)
[2021-09-28] MEDS: heparin, porcine 5000 units/ml vial SQ SCH (19:56)
--- NOTE | 2021-09-28 20:58 | NUR ---
Pt pink, talking in her sleep, PIV site c/d/i s complication or adverse reaction. Pt. laying supine, no acute/impending distress. Will continue to monitor pt for acute changes and needs. Bed in lowest position, wheels locked, rail up.
[2021-09-28] MEDS ORDERED: BUSP15TA3 PO (22:40)
[2021-09-28] MEDS ORDERED: FURO-150 PO (22:40)
[2021-09-28] MEDS ORDERED: atorvastatin 20mg tablet PO SCH (22:53)
[2021-09-28] MEDS: Melatonin 3mg tablet PO SCH ×2 (22:57→23:08)
[2021-09-28] MEDS: metoprolol tartrate 50mg tablet PO SCH (23:07)
[2021-09-28] MEDS: carbidoba-levodopa 25-100mg tablet PO SCH (23:07)
[2021-09-28] MEDS: atorvastatin 10mg tablet PO SCH (23:07)
--- NOTE | 2021-09-28 23:09 | NUR ---
VORB Dr Claudy Carnes Melatonin 3mg po now. Melatonin was not ordered for tonight it was ordered for 09/29 @ [facility].
--- NOTE | 2021-09-28 23:14 | NUR ---
Pt pink, no acute/resp distress. PIV site c/d/i s complication, or adverse reaction.
--- NOTE | 2021-09-29 00:36 | NUR ---
Pt pink, no acute/resp distress. PIV site c/d/i s complication. Rails up, bed in lowest position, wheels locked. Call gonzales in reach. Will continue to monitor for acute changes and needs.
--- NOTE | 2021-09-29 02:00 | NUR ---
Pt pink, alert, no acute/resp distress. PIV site c/d/i s complication. Pt laying supine. Pt able to reposition of her comfort. Bed in lowest position, wheels locked, 2/2 rails up. Will continue to monior for acute changes and ongoing needs.
--- NOTE | 2021-09-29 05:22 | NUR ---
Pt pink, no acute/resp distress. Sleeping s complication. Pt arouses to verbal stim. PIV site c/d/i s compliction or adverse reaction.
[2021-09-29] MEDS: K and/or MAG REPLACEMENT MC SCH ×2 (07:35→20:00)
[2021-09-29] MEDS: cefTRIAXone 1g/NS 100ml IVPB 100 ML IV SCH (08:04)
[2021-09-29] MEDS: heparin, porcine 5000 units/ml vial SQ SCH ×2 (08:04→20:56)
[2021-09-29 08:22] LABS: ALBUMIN 2.6 G/DL (3.4-5.0); ANION GAP 10 (8-16); BLOOD UREA NITROGEN 15 MG/DL (7-18); BUN/CREATININE RATIO 12.4 (6.6-38.0); CALCIUM 8.3 MG/DL (8.5-10.1); CHLORIDE 104 MMOL/L (99-107); CREATININE 1.21 MG/DL (0.40-0.90); GLUCOSE 119 MG/DL (70-104); MAGNESIUM 2.2 MG/DL (1.5-2.4); POTASSIUM 3.8 MMOL/L (3.5-5.1); SODIUM 142 MMOL/L (135-145); TOTAL CARBON DIOXIDE 28.1 MMOL/L (24-32); eGFR 42 ML/MIN
[2021-09-29 08:26] LABS: BASOPHILS % (AUTO) 0.1 % (0-1); EOSINOPHILS % (AUTO) 0 % (0-6); HEMATOCRIT 27.9 % (35.0-45.0); HEMOGLOBIN 9.1 g/dl (12.0-16.0); LYMPHOCYTES # (AUTO) 0.8 X10'3 (1.1-4.8); LYMPHOCYTES % (AUTO) 8.2 % (21-51); MEAN CORPUSCULAR HEMOGLOBIN 29.8 PG (27.0-31.0); MEAN CORPUSCULAR HGB CONC 32.6 g/dL (33.0-36.5); MEAN CORPUSCULAR VOLUME 91.3 FL (78-98); MONOCYTES # (AUTO) 0.2 X10'3 (0-0.9); MONOCYTES % (AUTO) 2.4 % (2-12); NEUTROPHILS # (AUTO) 8.7 X10'3 (1.8-7.7); NEUTROPHILS % (AUTO) 89.3 % (42-75); PLATELET COUNT 314 X10'3 (140-440); RED BLOOD COUNT 3.06 X10'6 (4.20-5.60); RED CELL DISTRIBUTION WIDTH 14.8 % (11.5-14.5); WHITE BLOOD COUNT 9.8 X10'3 (4.5-11.0)
--- NOTE | 2021-09-29 12:28 | NUR ---
came back from lunch, unaware that my ed patient had arrived, no nurse from ed gave me report and no nurse is claiming that they received a report on this patient who is in room 3026b, charge nurse was unaware of patient in the room, pt in room very agitated at this time
--- NOTE | 2021-09-29 12:34 | NUR ---
i had to call ed to get report from shannon sanchez from ed
[2021-09-29] MEDS ORDERED: BUDE0.5A3 NEB (12:59)
[2021-09-29] MEDS ORDERED: BISA-155 PO (12:59)
[2021-09-29] MEDS ORDERED: LACT1TAB11 PO (13:02)
[2021-09-29] MEDS ORDERED: CIPR250T4 PO (13:04)
[2021-09-29] MEDS ORDERED: CITA10TA93 PO (13:04)
[2021-09-29] MEDS ORDERED: CLON0.1T PO (13:06)
[2021-09-29] MEDS ORDERED: HYDR-3965 PO (13:17)
[2021-09-29] MEDS ORDERED: POTA-207 PO (13:17)
[2021-09-29] MEDS ORDERED: ATOR10TA70 PO (13:17)
[2021-09-29] MEDS ORDERED: METO25TA6 PO (13:17)
[2021-09-29] MEDS ORDERED: FOLI1TAB27 PO (13:17)
[2021-09-29] MEDS ORDERED: FERR-28 PO (13:17)
[2021-09-29] MEDS ORDERED: SENN1TAB61 PO (13:17)
[2021-09-29] MEDS ORDERED: DOCU100C40 PO (13:17)
[2021-09-29 13:18] VITALS: BP 115/60
[2021-09-29] MEDS ORDERED: CYAN500T71 PO (13:22)
[2021-09-29] MEDS ORDERED: CHOL100046 PO (13:22)
[2021-09-29] MEDS ORDERED: ASCO-134 PO (13:22)
[2021-09-29] MEDS: acetaminophen 325mg tablet PO PRN (14:30)
[2021-09-29 15:00] VITALS: BP 150/81
[2021-09-29 18:30] VITALS: BP 155/69
--- NOTE | 2021-09-29 18:34 | NUR ---
gave report september,
[2021-09-29] MEDS: Melatonin 3mg tablet PO SCH (20:56)
[2021-09-29] MEDS: carbidoba-levodopa 25-100mg tablet PO SCH (20:56)
[2021-09-29] MEDS: atorvastatin 10mg tablet PO SCH (20:56)
[2021-09-29] MEDS: metoprolol tartrate 50mg tablet PO SCH (20:57)
[2021-09-29 22:00] VITALS: BP 151/72
[2021-09-30] MEDS ORDERED: ALPRAZolam 0.25mg tablet PO ONE (01:05)
[2021-09-30 02:00] VITALS: BP 162/71
[2021-09-30] MEDS: acetaminophen 325mg tablet PO PRN ×2 (04:06→12:37)
--- NOTE | 2021-09-30 06:05 | NUR ---
RECEIVED REPORT FROM BRIAN, RN
[2021-09-30 06:52] LABS: BASOPHILS % (AUTO) 0 % (0-1); EOSINOPHILS % (AUTO) 0 % (0-6); LYMPHOCYTES # (AUTO) 0.9 X10'3 (1.1-4.8); MEAN CORPUSCULAR VOLUME 90.8 FL (78-98); MONOCYTES % (AUTO) 7.8 % (2-12)
[2021-09-30 06:54] LABS: HEMATOCRIT 29.1 % (35.0-45.0); HEMOGLOBIN 9.8 g/dl (12.0-16.0); LYMPHOCYTES % (AUTO) 8.3 % (21-51); MEAN CORPUSCULAR HEMOGLOBIN 30.4 PG (27.0-31.0); MEAN CORPUSCULAR HGB CONC 33.5 g/dL (33.0-36.5); MEAN PLATELET VOLUME 8.3 FL (7.4-10.4); MONOCYTES # (AUTO) 0.9 X10'3 (0-0.9); NEUTROPHILS # (AUTO) 9.2 X10'3 (1.8-7.7); NEUTROPHILS % (AUTO) 83.9 % (42-75); PLATELET COUNT 397 X10'3 (140-440); RED BLOOD COUNT 3.21 X10'6 (4.20-5.60); RED CELL DISTRIBUTION WIDTH 14.7 % (11.5-14.5)
[2021-09-30 07:00] VITALS: BP 132/106
[2021-09-30 07:03] LABS: ALBUMIN 2.9 G/DL (3.4-5.0); ANION GAP 11 (8-16); BLOOD UREA NITROGEN 19 MG/DL (7-18); BUN/CREATININE RATIO 18.1 (6.6-38.0); CALCIUM 8.8 MG/DL (8.5-10.1); CHLORIDE 104 MMOL/L (99-107); CREATININE 1.05 MG/DL (0.40-0.90); GLUCOSE 104 MG/DL (70-104); MAGNESIUM 2.3 MG/DL (1.5-2.4); POTASSIUM 3.7 MMOL/L (3.5-5.1); SODIUM 143 MMOL/L (135-145); TOTAL CARBON DIOXIDE 28.5 MMOL/L (24-32); eGFR 50 ML/MIN
[2021-09-30] MEDS: K and/or MAG REPLACEMENT MC SCH ×2 (07:45→20:00)
[2021-09-30] MEDS: cefTRIAXone 1g/NS 100ml IVPB 100 ML IV SCH (08:01)
[2021-09-30] MEDS: heparin, porcine 5000 units/ml vial SQ SCH (08:08)
[2021-09-30] MEDS: folic acid 1mg tablet PO SCH (08:15)
[2021-09-30] MEDS: aspirin 81mg, enteric-coated 1 TAB TABLET.DR PO SCH (08:15)
[2021-09-30] MEDS: cyanocobalamin 500mcg tablet PO SCH (08:15)
[2021-09-30] MEDS: duloxetine 30mg CAPSULE.DR PO SCH (08:29)
[2021-09-30] MEDS: metoprolol tartrate 25mg tablet PO SCH ×2 (08:30→20:55)
[2021-09-30] MEDS: multivitamins, therapeutics tablet PO SCH (08:31)
[2021-09-30] MEDS ORDERED: losartan 50mg tablet PO SCH (08:32)
[2021-09-30] MEDS: lactobacillus rhamnosus 10,000 MMU CELLS/CAPSULE PO SCH (10:01)
[2021-09-30] MEDS: ascorbic acid 500mg tablet PO SCH (10:02)
[2021-09-30] MEDS: CITALOpram 10mg tablet PO SCH (10:05)
[2021-09-30] MEDS: diltiazem CD 180mg cap (once-daily) PO SCH (10:05)
[2021-09-30] MEDS: albuterol 2.5 MG/3 ML nebule NEB PRN ×2 (10:56→16:15)
[2021-09-30 11:00] VITALS: BP 174/97
[2021-09-30 15:00] VITALS: BP 114/80
--- NOTE | 2021-09-30 15:34 | NUR ---
PRESSURE ULCER EDUCATION: DEFINITION: A pressure ulcer is an area of skin that breaks down when you stay in one position too long. The constant pressure against the skin reduces the blood flow to that area and the affected tissue dies. CAUSES: "Being bedridden or in a wheelchair "Fragile skin "Having a chronic condition, such as diabetes or vascular disease "Inability to move certain parts of your body without assistance "Older age "Incontinence of urine or stool SYMPTOMS: "A reddened area that DOES NOT turn white when pressed on - this can be the beginning of a pressure ulcer "A blister, deep sore or a crater - these can be advanced pressure ulcers FIRST AID: "Relieve the pressure on this area "Keep the area clean and dry "Call your primary doctor if you see any of the above symptoms "DO NOT massage the area "DO NOT use a donut shaped or ring shaped pillow- these actually interfere with the blood flow and cause complications PREVENTION: "Check for pressure ulcers everyday "Change position at least every two hours to relieve pressure "Use items that help relieve pressure- pillows, sheepskin, foam padding, and powders. "Keep skin clean and dry "Eat healthy well balanced meals "Exercise daily IF YOU SEE ANY OF THESE SYMPTOMS WHILE IN THE HOSPITAL - TELL YOUR NURSE IMMEDIATELY. IF YOU SEE ANY OF THESE SYMPTOMS WHILE AT HOME OR HAVE ANY QUESTIONS OR CONCERNS ABOUT PRESSURE ULCERS - CALL YOUR PRIMARY DOCTOR IMMEDIATELY. Addendum: 09/30/21 at 1534 by Aurea Marquez RN Amended: Links added.
[2021-09-30] MEDS: gabapentin 100mg capsule PO SCH (15:53)
[2021-09-30] MEDS: normal saline 1000ml 1,000 ML IV SCH (16:10)
[2021-09-30] MEDS: rivaroxaban 20mg tablet PO SCH (17:18)
--- NOTE | 2021-09-30 18:16 | NUR ---
GAVE REPORT TO September,
[2021-09-30 18:50] VITALS: BP 129/64
[2021-09-30] MEDS: budesonide 0.5mg/2ml UD nebule IH SCH (20:00)
[2021-09-30] MEDS: busPIRone 15mg tablet PO SCH (20:54)
[2021-09-30] MEDS: carbidoba-levodopa 25-100mg tablet PO SCH (20:54)
[2021-09-30] MEDS: Melatonin 3mg tablet PO SCH (20:54)
[2021-09-30] MEDS: montelukast 10mg tablet PO SCH (20:54)
[2021-09-30] MEDS: ferrous sulfate 325mg tablet PO SCH (20:55)
[2021-09-30] MEDS: atorvastatin 10mg tablet PO SCH (20:55)
[2021-09-30] MEDS ORDERED: atorvastatin 10mg tablet PO SCH (21:00)
[2021-09-30 22:00] VITALS: BP 141/72
[2021-09-30] MEDS: cloNIDine 0.1 mg tablet PO SCH (23:59)
[2021-10-01] MEDS: gabapentin 100mg capsule PO SCH ×4 (00:05→23:37)
[2021-10-01] MEDS: ALPRAZolam 0.25mg tablet PO SCH ×2 (01:01→23:37)
[2021-10-01 02:00] VITALS: BP 120/54
--- NOTE | 2021-10-01 02:45 | NUR ---
pt converted to sr per telephone diaphragm assembler
[2021-10-01 06:27] LABS: ALBUMIN 2.5 G/DL (3.4-5.0); ANION GAP 8 (8-16); BLOOD UREA NITROGEN 20 MG/DL (7-18); BUN/CREATININE RATIO 17.2 (6.6-38.0); CALCIUM 8.9 MG/DL (8.5-10.1); CHLORIDE 104 MMOL/L (99-107); CREATININE 1.16 MG/DL (0.40-0.90); GLUCOSE 89 MG/DL (70-104); MAGNESIUM 2.3 MG/DL (1.5-2.4); POTASSIUM 3.7 MMOL/L (3.5-5.1); SODIUM 142 MMOL/L (135-145); TOTAL CARBON DIOXIDE 29.8 MMOL/L (24-32); eGFR 44 ML/MIN
[2021-10-01 06:28] LABS: BASOPHILS % (AUTO) 0.1 % (0-1); EOSINOPHILS % (AUTO) 0.5 % (0-6); HEMATOCRIT 24.4 % (35.0-45.0); HEMOGLOBIN 8.1 g/dl (12.0-16.0); LYMPHOCYTES # (AUTO) 1.2 X10'3 (1.1-4.8); MEAN CORPUSCULAR HEMOGLOBIN 30.4 PG (27.0-31.0); MEAN CORPUSCULAR HGB CONC 33.1 g/dL (33.0-36.5); MEAN CORPUSCULAR VOLUME 91.9 FL (78-98); MEAN PLATELET VOLUME 8.2 FL (7.4-10.4); MONOCYTES % (AUTO) 10.9 % (2-12); NEUTROPHILS # (AUTO) 6.6 X10'3 (1.8-7.7); NEUTROPHILS % (AUTO) 74.5 % (42-75); PLATELET COUNT 321 X10'3 (140-440); RED BLOOD COUNT 2.66 X10'6 (4.20-5.60); RED CELL DISTRIBUTION WIDTH 14.9 % (11.5-14.5); WHITE BLOOD COUNT 8.8 X10'3 (4.5-11.0)
--- NOTE | 2021-10-01 06:32 | NUR ---
Patient in room PCU 3017. I have received report from Jaye YIN and had the opportunity to ask questions and assume patient care. Patient is resting in bed in no acute distress.
[2021-10-01 07:00] VITALS: BP 128/46
[2021-10-01] MEDS: albuterol 2.5 MG/3 ML nebule NEB PRN ×2 (07:35→14:34)
[2021-10-01] MEDS: K and/or MAG REPLACEMENT MC SCH ×2 (08:00→20:00)
[2021-10-01] MEDS: lactobacillus rhamnosus 10,000 MMU CELLS/CAPSULE PO SCH (08:44)
[2021-10-01] MEDS: cefTRIAXone 1g/NS 100ml IVPB 100 ML IV SCH (08:44)
[2021-10-01] MEDS: multivitamins, therapeutics tablet PO SCH (08:44)
[2021-10-01] MEDS: ascorbic acid 500mg tablet PO SCH (08:44)
[2021-10-01] MEDS: folic acid 1mg tablet PO SCH (08:45)
[2021-10-01] MEDS: cloNIDine 0.1 mg tablet PO SCH ×2 (08:45→23:37)
[2021-10-01] MEDS: metoprolol tartrate 25mg tablet PO SCH ×2 (08:45→19:26)
[2021-10-01] MEDS: busPIRone 15mg tablet PO SCH ×2 (08:46→19:35)
[2021-10-01] MEDS: CITALOpram 10mg tablet PO SCH (08:46)
[2021-10-01] MEDS: losartan 50mg tablet PO SCH (08:46)
[2021-10-01] MEDS: aspirin 81mg, enteric-coated 1 TAB TABLET.DR PO SCH (08:46)
[2021-10-01] MEDS: cyanocobalamin 500mcg tablet PO SCH (08:47)
[2021-10-01] MEDS: ferrous sulfate 325mg tablet PO SCH ×2 (08:49→19:35)
[2021-10-01] MEDS: duloxetine 30mg CAPSULE.DR PO SCH (08:50)
[2021-10-01] MEDS: diltiazem CD 180mg cap (once-daily) PO SCH (08:50)
[2021-10-01] MEDS ORDERED: furosemide 40mg/4ml inj IV ONE (13:25)
--- NOTE | 2021-10-01 13:41 | NUR ---
ORDERS FOR ABG PUT IN PER DR. MARIN.
--- NOTE | 2021-10-01 13:46 | NUR ---
I came back from lunch and my patient stated that she could not breathe. I checked her O2 and sat was 58%. I got a non rebreather and put it up to 15 L ( previously on 5L) and O2 went up to 100. RT was paged and the doc notified. Her ordered a stat ABG and chest ray. Lasix was given. Patient's HR is 45-60 for the last 15 min. BP 124/52 Spo2 100 with simple mask at 10 L. Bipap ok per Dr. Piña if ABG indicates necessary. Will continue to monitor closely.
[2021-10-01 14:19] LABS: CLARITY,URINE CLOUDY (Clear); COLOR,URINE YELLOW (Yellow); GLUCOSE, URINE NEGATIVE (Neg); KETONES,URINE NEGATIVE (Neg); LEUKOCYTE ESTERASE ,URINE SMALL (Neg); NITRITES, URINE NEGATIVE (Neg); OCCULT BLOOD,URINE LARGE (Neg); PH,URINE 5.5 (4.8-8.0); PROTEIN,URINE TRACE mg/dl (Neg); UROBILINOGEN,URINE 0.2 E.U/dL (0.2-1.0)
[2021-10-01 14:22] LABS: UA COLLECTION TYPE FOLEY CATH
[2021-10-01 14:27] LABS: ABG PCO2 (T) 50.9 mmHg (32.0-45.0); ABG PO2 (T) 57.4 mmHg (75.0-100.0); ALLEN'S TEST POSITIVE; FCOHb 0.6 % (0.0-3.9); FMetHb 0.3 % (0.0-1.5); FO2Hb 89.2 % (94-97); PATIENT TEMPERATURE 36.2; TOTAL HEMOGLOBIN 8.8 G/dl (12.0-16.0)
[2021-10-01 14:29] LABS: URIC ACID CRYSTALS 2+ /HPF (NEGATIVE)
[2021-10-01 14:32] LABS: YEAST MANY /HPF (NEGATIVE)
[2021-10-01 14:33] LABS: BACTERIA,URINE 1+ /HPF (Neg); RBC,URINE TNTC /HPF (0-2)
[2021-10-01 14:34] LABS: SQUAMOUS EPITHELIAL CELL,UR FEW /LPF (FEW)
[2021-10-01 16:00] VITALS: BP 126/46
--- NOTE | 2021-10-01 16:03 | NUR ---
Page Sent promotional table spacer PAGER ID: [phone] MESSAGE: [id number] Schmid. Patient went back into Afib around 1535 and is sustaining HR in the 130s. BP 126/46 ABG and xray reports are available in [facility] . Angelique/John [phone]
--- NOTE | 2021-10-01 16:06 | NUR ---
per phone conversation with Dr. Piña he ordered 5 mg IV cardizem push in response to page of Afib and increased HR
[2021-10-01] MEDS ORDERED: diltiazem 5mg/ml 5ml inj. IV ONE (16:10)
--- NOTE | 2021-10-01 16:43 | NUR ---
Page Sent promotional table spacer PAGER ID: [phone] MESSAGE: [id number] Schmid. Patient HR improved in 90s- low 100s. UA was sent and culture was indicated. Urinary output for today 450ml. Patient appears to be coughing up small amounts of blood. Angelique/ John [id number]
--- NOTE | 2021-10-01 16:44 | NUR ---
after investigating blood on patient lips its was found that there is no cut in mouth producing blood. Dentures were removed and mouth rinsed extensively to clearly visualize oral cavity. No cut or source of blood was found. Patient appears to be coughing up small amounts of blood.
--- NOTE | 2021-10-01 17:33 | NUR ---
Page Sent promotional table spacer PAGER ID: [phone] MESSAGE: [id number] Schmid. Patient continuing to cough up blood. She is due to start Xarelto at 1800 today. Please advise. Angelique/John [phone]
[2021-10-01] MEDS: rivaroxaban 20mg tablet PO SCH (17:36)
--- NOTE | 2021-10-01 17:38 | NUR ---
kita held today because patient is coughing up blood per Dr. Piña
--- NOTE | 2021-10-01 17:46 | NUR ---
[place] documentation: I have reviewed and agree with all interventions, assessments performed and documented by John YIN. [place] Medication Administration: For this medication-pass time frame, all medication were reviewed, dispensed, administered and documented per hospital policy by Rosy YIN
[2021-10-01 18:00] VITALS: BP 126/79
--- NOTE | 2021-10-01 18:13 | NUR ---
Problems reprioritized. Patient report given, questions answered & plan of care reviewed with Jaye RN. Patient resting in bed in no acute distress.
[2021-10-01] MEDS: ipratropium/albuterol 3ml nebule NEB SCH ×2 (19:00→23:00)
[2021-10-01] MEDS: atorvastatin 10mg tablet PO SCH (19:25)
[2021-10-01] MEDS: Melatonin 3mg tablet PO SCH (19:35)
[2021-10-01] MEDS: carbidoba-levodopa 25-100mg tablet PO SCH (19:35)
[2021-10-01] MEDS: montelukast 10mg tablet PO SCH (19:35)
[2021-10-01 22:00] VITALS: BP 134/64
[2021-10-01] MEDS: cefepime 1GM/NS ADD-VANTAGE 100 ML IV SCH (23:38)
[2021-10-02] MEDS: furosemide 40mg/4ml inj IV SCH ×3 (01:38→19:58)
[2021-10-02 02:00] VITALS: BP 123/57
[2021-10-02] MEDS: ipratropium/albuterol 3ml nebule NEB SCH ×6 (03:00→23:21)
[2021-10-02 06:00] VITALS: BP 133/52
[2021-10-02 06:31] LABS: BASOPHILS % (AUTO) 0.1 % (0-1); EOSINOPHILS # (AUTO) 0.2 X10'3 (0-0.9); EOSINOPHILS % (AUTO) 1.8 % (0-6); HEMATOCRIT 25.7 % (35.0-45.0); HEMOGLOBIN 8.4 g/dl (12.0-16.0); LYMPHOCYTES # (AUTO) 1.1 X10'3 (1.1-4.8); LYMPHOCYTES % (AUTO) 11.8 % (21-51); MEAN CORPUSCULAR HEMOGLOBIN 29.7 PG (27.0-31.0); MEAN CORPUSCULAR HGB CONC 32.6 g/dL (33.0-36.5); MEAN CORPUSCULAR VOLUME 91.2 FL (78-98); MEAN PLATELET VOLUME 8.3 FL (7.4-10.4); MONOCYTES % (AUTO) 11.6 % (2-12); NEUTROPHILS # (AUTO) 6.7 X10'3 (1.8-7.7); NEUTROPHILS % (AUTO) 74.7 % (42-75); PLATELET COUNT 342 X10'3 (140-440); RED BLOOD COUNT 2.82 X10'6 (4.20-5.60); RED CELL DISTRIBUTION WIDTH 15.2 % (11.5-14.5)
[2021-10-02 06:39] LABS: ALBUMIN 2.4 G/DL (3.4-5.0); ANION GAP 9 (8-16); BLOOD UREA NITROGEN 19 MG/DL (7-18); BUN/CREATININE RATIO 16.2 (6.6-38.0); CALCIUM 8.6 MG/DL (8.5-10.1); CHLORIDE 104 MMOL/L (99-107); CREATININE 1.17 MG/DL (0.40-0.90); GLUCOSE 107 MG/DL (70-104); POTASSIUM 3.4 MMOL/L (3.5-5.1); SODIUM 144 MMOL/L (135-145); TOTAL CARBON DIOXIDE 31.4 MMOL/L (24-32); eGFR 44 ML/MIN
[2021-10-02] MEDS: budesonide 0.5mg/2ml UD nebule IH SCH ×3 (07:10→20:31)
[2021-10-02] MEDS ORDERED: potassium Cl 20 mEq SR tablet PO PRN (07:25)
[2021-10-02] MEDS ORDERED: magnesium Cl slow-release 64mg tablet PO PRN (07:25)
[2021-10-02 07:46] LABS: PLATELET ESTIMATE NORMAL; TOTAL CELLS COUNTED 100
[2021-10-02] MEDS: K and/or MAG REPLACEMENT MC SCH ×2 (08:00→20:00)
[2021-10-02] MEDS: CITALOpram 10mg tablet PO SCH (08:21)
[2021-10-02] MEDS: losartan 50mg tablet PO SCH (08:21)
[2021-10-02] MEDS: gabapentin 100mg capsule PO SCH ×2 (08:23→15:07)
[2021-10-02] MEDS: metoprolol tartrate 25mg tablet PO SCH ×2 (08:23→19:58)
[2021-10-02] MEDS: aspirin 81mg, enteric-coated 1 TAB TABLET.DR PO SCH (08:23)
[2021-10-02] MEDS: folic acid 1mg tablet PO SCH (08:24)
[2021-10-02] MEDS: duloxetine 30mg CAPSULE.DR PO SCH (08:25)
[2021-10-02] MEDS: lactobacillus rhamnosus 10,000 MMU CELLS/CAPSULE PO SCH (08:25)
[2021-10-02] MEDS: multivitamins, therapeutics tablet PO SCH (08:26)
[2021-10-02] MEDS: diltiazem CD 180mg cap (once-daily) PO SCH (08:26)
[2021-10-02] MEDS: ferrous sulfate 325mg tablet PO SCH ×2 (08:27→19:58)
[2021-10-02] MEDS: cloNIDine 0.1 mg tablet PO SCH ×2 (08:27→19:58)
[2021-10-02] MEDS: busPIRone 15mg tablet PO SCH ×2 (08:28→19:58)
[2021-10-02] MEDS: ascorbic acid 500mg tablet PO SCH (08:28)
[2021-10-02] MEDS: cyanocobalamin 500mcg tablet PO SCH (08:29)
[2021-10-02] MEDS: potassium Cl 20 mEq SR tablet PO PRN ×2 (08:45→15:19)
--- NOTE | 2021-10-02 08:59 | NUR ---
page sent to provider ; Page Sent PAGER ID: [phone] MESSAGE: Rufino Schmid [id number]; pt back in afib between 130s up to 160s. pt still coughing blood H&H unchanged. just gave AM metoprolol and cardizem 30 min ago. Holly [facility] [id number]
[2021-10-02] MEDS: cefepime 1GM/NS ADD-VANTAGE 100 ML IV SCH (09:14)
[2021-10-02 11:00] VITALS: BP 124/79
[2021-10-02 15:00] VITALS: BP 113/53
[2021-10-02] MEDS: acetaminophen 325mg tablet PO PRN (15:08)
[2021-10-02 18:00] VITALS: BP_SYST 121; BP_DIAS 53; BP_DIAS 72
[2021-10-02] MEDS: montelukast 10mg tablet PO SCH (20:13)
[2021-10-02] MEDS: atorvastatin 10mg tablet PO SCH (20:14)
[2021-10-02] MEDS: ALPRAZolam 0.25mg tablet PO SCH (20:14)
[2021-10-02] MEDS: Melatonin 3mg tablet PO SCH ×2 (20:14)
[2021-10-02] MEDS: rivaroxaban 20mg tablet PO SCH (20:39)
[2021-10-02] MEDS: carbidoba-levodopa 25-100mg tablet PO SCH (20:40)
[2021-10-02 22:00] VITALS: BP 121/38
[2021-10-03] MEDS: gabapentin 100mg capsule PO SCH ×3 (00:33→17:03)
[2021-10-03] MEDS: ipratropium/albuterol 3ml nebule NEB SCH ×6 (03:55→23:30)
[2021-10-03 05:49] LABS: BASOPHILS % (AUTO) 0.3 % (0-1); EOSINOPHILS # (AUTO) 0.2 X10'3 (0-0.9); EOSINOPHILS % (AUTO) 2.1 % (0-6); HEMATOCRIT 25.7 % (35.0-45.0); HEMOGLOBIN 8.4 g/dl (12.0-16.0); LYMPHOCYTES # (AUTO) 1.4 X10'3 (1.1-4.8); LYMPHOCYTES % (AUTO) 13.9 % (21-51); MEAN CORPUSCULAR HEMOGLOBIN 30.4 PG (27.0-31.0); MEAN CORPUSCULAR HGB CONC 32.7 g/dL (33.0-36.5); MEAN CORPUSCULAR VOLUME 92.8 FL (78-98); MEAN PLATELET VOLUME 8.6 FL (7.4-10.4); MONOCYTES # (AUTO) 1.1 X10'3 (0-0.9); MONOCYTES % (AUTO) 10.5 % (2-12); NEUTROPHILS # (AUTO) 7.6 X10'3 (1.8-7.7); NEUTROPHILS % (AUTO) 73.2 % (42-75); PLATELET COUNT 286 X10'3 (140-440); RED BLOOD COUNT 2.77 X10'6 (4.20-5.60); WHITE BLOOD COUNT 10.4 X10'3 (4.5-11.0)
[2021-10-03 06:00] VITALS: BP 122/65
[2021-10-03 06:02] LABS: ALBUMIN 2.5 G/DL (3.4-5.0); ANION GAP 4 (8-16); BLOOD UREA NITROGEN 20 MG/DL (7-18); BUN/CREATININE RATIO 17.7 (6.6-38.0); CALCIUM 8.4 MG/DL (8.5-10.1); CHLORIDE 108 MMOL/L (99-107); CREATININE 1.13 MG/DL (0.40-0.90); GLUCOSE 103 MG/DL (70-104); POTASSIUM 3.7 MMOL/L (3.5-5.1); SODIUM 146 MMOL/L (135-145); TOTAL CARBON DIOXIDE 33.6 MMOL/L (24-32); eGFR 46 ML/MIN
[2021-10-03] MEDS: K and/or MAG REPLACEMENT MC SCH ×2 (08:00→20:00)
[2021-10-03] MEDS: budesonide 0.5mg/2ml UD nebule IH SCH ×2 (08:30→18:37)
[2021-10-03] MEDS: furosemide 40mg/4ml inj IV SCH ×2 (08:37→20:30)
[2021-10-03] MEDS: cefepime 1GM/NS ADD-VANTAGE 100 ML IV SCH (08:37)
[2021-10-03] MEDS: diltiazem CD 180mg cap (once-daily) PO SCH (08:40)
[2021-10-03] MEDS: ascorbic acid 500mg tablet PO SCH (08:41)
[2021-10-03] MEDS: aspirin 81mg, enteric-coated 1 TAB TABLET.DR PO SCH (08:41)
[2021-10-03] MEDS: cyanocobalamin 500mcg tablet PO SCH (08:41)
[2021-10-03] MEDS: cloNIDine 0.1 mg tablet PO SCH ×2 (08:42→20:30)
[2021-10-03] MEDS: folic acid 1mg tablet PO SCH (08:42)
[2021-10-03] MEDS: CITALOpram 10mg tablet PO SCH (08:42)
[2021-10-03] MEDS: ferrous sulfate 325mg tablet PO SCH ×2 (08:43→20:29)
[2021-10-03] MEDS: duloxetine 30mg CAPSULE.DR PO SCH (08:43)
[2021-10-03] MEDS: busPIRone 15mg tablet PO SCH ×2 (08:44→20:30)
[2021-10-03] MEDS: metoprolol tartrate 25mg tablet PO SCH ×2 (08:50→20:30)
[2021-10-03] MEDS: multivitamins, therapeutics tablet PO SCH (08:51)
[2021-10-03] MEDS: lactobacillus rhamnosus 10,000 MMU CELLS/CAPSULE PO SCH (08:51)
[2021-10-03] MEDS: losartan 50mg tablet PO SCH (08:52)
--- NOTE | 2021-10-03 10:41 | NUR ---
Initial: Pt admitted w/ aspiration PNA, acute on chronic respiratory failure, and pulmonary edema per EMR. Currently on Heart healthy/vegetarian/MM5 diet w/ mostly 0-25% intake. Per RN, pt preference is vegetarian, though pt has not been on vegetarian diet on previous admits and is A&O x 2 and confused. Recommend liberalizing to Regular/vegetarian and MM5 per BOLTING MACHINE OPERATOR recs. Pt on 8L mask and has been noted to cough up blood at times. Will trial w/ smoothies and if pt is accepting, may consider Ensure Enlive afterwards. Given inadequate intake for 5 days, mild muscle weakness, and mild edema pt meets minimum criteria for malnutrition, MD notified. LB 10/01, will continue to monitor. Recs: 1. Liberalize to Regular/Vegetarian/MM5 diet 2. Smoothies TID; if pt is accepting consider ONS 3. Bowel care per rx 4. IF PO remains poor and within POC consider TF 5. Scaled wts Addendum: 10/03/21 at [address] Amended: Links added.
[2021-10-03 11:00] VITALS: BP 113/56
--- NOTE | 2021-10-03 13:07 | NUR ---
paged Dr Piña PAGER ID: [phone] MESSAGE: [id number]. Rufino Schmid. pt req cough med. strong non-prod cough. Cleo Watson
[2021-10-03] MEDS: benzonatate 100mg capsule PO PRN (14:07)
[2021-10-03 15:00] VITALS: BP 111/56
[2021-10-03] MEDS: rivaroxaban 20mg tablet PO SCH (17:03)
--- NOTE | 2021-10-03 18:18 | NUR ---
[place]rientee documentation: I have reviewed and agree with all interventions, assessments performed and documented by IVANIA Gonzalez.
[2021-10-03 18:48] VITALS: BP 135/50
[2021-10-03] MEDS: carbidoba-levodopa 25-100mg tablet PO SCH (20:29)
[2021-10-03] MEDS: ALPRAZolam 0.25mg tablet PO SCH (20:29)
[2021-10-03] MEDS: atorvastatin 10mg tablet PO SCH (20:29)
[2021-10-03] MEDS: Melatonin 3mg tablet PO SCH ×2 (20:29→20:31)
[2021-10-03] MEDS: montelukast 10mg tablet PO SCH (20:30)
[2021-10-03 22:30] VITALS: BP 101/50
[2021-10-04] VITALS (7 sets, daily range): BP systolic 94–122; BP diastolic 39–64
[2021-10-04] MEDS: gabapentin 100mg capsule PO SCH ×3 (00:27→15:54)
[2021-10-04] MEDS: ipratropium/albuterol 3ml nebule NEB SCH ×6 (03:15→23:23)
[2021-10-04] MEDS: benzonatate 100mg capsule PO PRN ×2 (04:31→21:45)
[2021-10-04] MEDS: budesonide 0.5mg/2ml UD nebule IH SCH ×2 (07:19→19:22)
[2021-10-04] MEDS: K and/or MAG REPLACEMENT MC SCH ×2 (08:00→18:26)
[2021-10-04] MEDS: diltiazem CD 180mg cap (once-daily) PO SCH (09:23)
[2021-10-04] MEDS: lactobacillus rhamnosus 10,000 MMU CELLS/CAPSULE PO SCH (09:24)
[2021-10-04] MEDS: cloNIDine 0.1 mg tablet PO SCH ×2 (09:24→20:06)
[2021-10-04] MEDS: CITALOpram 10mg tablet PO SCH (09:25)
[2021-10-04] MEDS: multivitamins, therapeutics tablet PO SCH (09:25)
[2021-10-04] MEDS: busPIRone 15mg tablet PO SCH ×2 (09:25→20:07)
[2021-10-04] MEDS: folic acid 1mg tablet PO SCH (09:25)
[2021-10-04] MEDS: aspirin 81mg, enteric-coated 1 TAB TABLET.DR PO SCH (09:25)
[2021-10-04] MEDS: ferrous sulfate 325mg tablet PO SCH ×2 (09:25→20:07)
[2021-10-04] MEDS: ascorbic acid 500mg tablet PO SCH (09:26)
[2021-10-04] MEDS: metoprolol tartrate 25mg tablet PO SCH ×2 (09:26→20:06)
[2021-10-04] MEDS: duloxetine 30mg CAPSULE.DR PO SCH (09:27)
[2021-10-04] MEDS: losartan 50mg tablet PO SCH (09:28)
[2021-10-04] MEDS: furosemide 40mg/4ml inj IV SCH ×2 (09:33→20:06)
[2021-10-04] MEDS: cefepime 1GM/NS ADD-VANTAGE 100 ML IV SCH (09:34)
[2021-10-04] MEDS: cyanocobalamin 500mcg tablet PO SCH (09:44)
--- NOTE | 2021-10-04 14:22 | NUR ---
Rings x 2 home with Eimly (friend)
[2021-10-04] MEDS: rivaroxaban 20mg tablet PO SCH (17:24)
--- NOTE | 2021-10-04 18:20 | NUR ---
Problems reprioritized. Patient report given, questions answered & plan of care reviewed with ANNAMARIA Odonnell.
--- NOTE | 2021-10-04 18:21 | NUR ---
[place]rientee documentation: I have reviewed and agree with all interventions, assessments performed and documented by IVANIA Gonzalez.
[2021-10-04] MEDS: Melatonin 3mg tablet PO SCH ×2 (20:06→21:00)
[2021-10-04] MEDS: ALPRAZolam 0.25mg tablet PO SCH (20:06)
[2021-10-04] MEDS: montelukast 10mg tablet PO SCH (20:06)
[2021-10-04] MEDS: atorvastatin 10mg tablet PO SCH (20:07)
[2021-10-04] MEDS: carbidoba-levodopa 25-100mg tablet PO SCH (20:07)
[2021-10-04] MEDS: acetaminophen 325mg tablet PO PRN (22:54)
[2021-10-05 02:00] VITALS: BP 105/60
[2021-10-05] MEDS: ipratropium/albuterol 3ml nebule NEB SCH ×6 (03:13→23:11)
[2021-10-05 06:00] VITALS: BP 118/42
[2021-10-05] MEDS: budesonide 0.5mg/2ml UD nebule IH SCH ×2 (07:23→19:03)
[2021-10-05] MEDS: K and/or MAG REPLACEMENT MC SCH ×2 (08:00→20:00)
[2021-10-05] MEDS: gabapentin 100mg capsule PO SCH ×3 (08:37→16:32)
[2021-10-05] MEDS: cyanocobalamin 500mcg tablet PO SCH (08:37)
[2021-10-05] MEDS: duloxetine 30mg CAPSULE.DR PO SCH (08:38)
[2021-10-05] MEDS: ferrous sulfate 325mg tablet PO SCH ×2 (08:38→20:32)
[2021-10-05] MEDS: lactobacillus rhamnosus 10,000 MMU CELLS/CAPSULE PO SCH (08:39)
[2021-10-05] MEDS: multivitamins, therapeutics tablet PO SCH (08:39)
[2021-10-05] MEDS: ascorbic acid 500mg tablet PO SCH (08:40)
[2021-10-05] MEDS: cloNIDine 0.1 mg tablet PO SCH ×2 (08:40→20:33)
[2021-10-05] MEDS: busPIRone 15mg tablet PO SCH ×2 (08:40→20:33)
[2021-10-05] MEDS: aspirin 81mg, enteric-coated 1 TAB TABLET.DR PO SCH (08:41)
[2021-10-05] MEDS: folic acid 1mg tablet PO SCH (08:41)
[2021-10-05] MEDS: CITALOpram 10mg tablet PO SCH (08:41)
[2021-10-05] MEDS: diltiazem CD 180mg cap (once-daily) PO SCH (08:42)
[2021-10-05] MEDS: losartan 50mg tablet PO SCH (08:42)
[2021-10-05] MEDS: metoprolol tartrate 25mg tablet PO SCH ×2 (08:43→20:36)
[2021-10-05] MEDS: cefepime 1GM/NS ADD-VANTAGE 100 ML IV SCH (09:17)
[2021-10-05] MEDS: furosemide 40mg/4ml inj IV SCH ×2 (09:17→20:32)
[2021-10-05 11:00] VITALS: BP 110/56
[2021-10-05] MEDS: fluconazole-Diflucan 200mg/NS 100 ML IV SCH (13:15)
[2021-10-05 15:00] VITALS: BP 105/45
[2021-10-05] MEDS: rivaroxaban 20mg tablet PO SCH (17:50)
--- NOTE | 2021-10-05 17:55 | NUR ---
[place]rientee documentation: I have reviewed and agree with all interventions, assessments performed and documented by IVANIA Gonzalez II.
[2021-10-05 18:00] VITALS: BP 174/42
[2021-10-05] MEDS: montelukast 10mg tablet PO SCH (20:33)
[2021-10-05] MEDS: ALPRAZolam 0.25mg tablet PO SCH (20:33)
[2021-10-05] MEDS: Melatonin 3mg tablet PO SCH ×2 (20:33→20:36)
[2021-10-05] MEDS: carbidoba-levodopa 25-100mg tablet PO SCH (20:33)
[2021-10-05] MEDS: atorvastatin 10mg tablet PO SCH (20:33)
[2021-10-05 22:00] VITALS: BP 98/56
[2021-10-06] VITALS (11 sets, daily range): BP systolic 104–140; BP diastolic 47–65
[2021-10-06] MEDS: gabapentin 100mg capsule PO SCH ×4 (00:49→16:48)
[2021-10-06] MEDS: ipratropium/albuterol 3ml nebule NEB SCH ×6 (02:57→23:07)
[2021-10-06] MEDS: budesonide 0.5mg/2ml UD nebule IH SCH ×2 (07:31→19:40)
[2021-10-06] MEDS: K and/or MAG REPLACEMENT MC SCH ×2 (08:00→18:48)
[2021-10-06] MEDS: ascorbic acid 500mg tablet PO SCH (08:54)
[2021-10-06] MEDS: diltiazem CD 180mg cap (once-daily) PO SCH (08:55)
[2021-10-06] MEDS: busPIRone 15mg tablet PO SCH ×2 (08:55→20:32)
[2021-10-06] MEDS: furosemide 40mg/4ml inj IV SCH ×2 (08:55→20:33)
[2021-10-06] MEDS: losartan 50mg tablet PO SCH (08:55)
[2021-10-06] MEDS: multivitamins, therapeutics tablet PO SCH (08:55)
[2021-10-06] MEDS: cyanocobalamin 500mcg tablet PO SCH (08:55)
[2021-10-06] MEDS: lactobacillus rhamnosus 10,000 MMU CELLS/CAPSULE PO SCH (08:56)
[2021-10-06] MEDS: folic acid 1mg tablet PO SCH (08:56)
[2021-10-06] MEDS: metoprolol tartrate 25mg tablet PO SCH ×2 (08:56→20:32)
[2021-10-06] MEDS: cloNIDine 0.1 mg tablet PO SCH ×2 (08:56→20:31)
[2021-10-06] MEDS: fluconazole-Diflucan 200mg/NS 100 ML IV SCH (08:56)
[2021-10-06] MEDS: duloxetine 30mg CAPSULE.DR PO SCH (08:56)
[2021-10-06] MEDS: CITALOpram 10mg tablet PO SCH (08:56)
[2021-10-06] MEDS: ferrous sulfate 325mg tablet PO SCH ×2 (08:56→20:31)
[2021-10-06] MEDS: aspirin 81mg, enteric-coated 1 TAB TABLET.DR PO SCH (08:56)
[2021-10-06] MEDS: cefepime 1GM/NS ADD-VANTAGE 100 ML IV SCH (08:58)
[2021-10-06] MEDS ORDERED: fentaNYL/PF 50MCG/1 ML 2ML syringe ONE (09:55)
[2021-10-06] MEDS ORDERED: LIDOcaine Viscous 15ml cup ONE (09:56)
[2021-10-06] MEDS ORDERED: MIDAZolam 1 MG/ML 5ML VIAL ONE (09:56)
--- NOTE | 2021-10-06 10:59 | NUR ---
Reassessment: Pt was changed to full liquids 10/05, unsure of reason, previously Heart Healthy/Vegetarian/MM5 w/ 0-25% intake not meeting needs. Pt complaining of dysphagia per MD note, NPO now and going for EGD today per documentation. Limited nutrition interventions given above, recommend f/u BSS if appropriate following EGD, will also consider ONS. Pt continues on oxygen mask, 6L. LBM 10/04. Will continue to monitor. Recs: 1. F/u BSS s/p EGD, back to MM5/Vegetarian diet if appropriate 2. Smoothies TID; if pt is accepting consider ONS 3. Bowel care per rx 4. IF PO remains poor and within POC consider TF 5. Scaled wts Addendum: 10/06/21 at [address] Amended: Links added.
--- NOTE | 2021-10-06 11:13 | NUR ---
Spoke to MD Rangel. No need for labs today per MD Rangel; Yesi Kina
--- NOTE | 2021-10-06 12:40 | NUR ---
Verbal order Verbal order to stop patient's diflucan order per Dr. Rangel. Yesi U
--- NOTE | 2021-10-06 14:35 | NUR ---
Problems reprioritized. Patient report given, questions answered & plan of care reviewed with Kristal YIN.
[2021-10-06] MEDS: rivaroxaban 20mg tablet PO SCH (17:41)
[2021-10-06] MEDS: atorvastatin 10mg tablet PO SCH (20:31)
[2021-10-06] MEDS: carbidoba-levodopa 25-100mg tablet PO SCH (20:32)
[2021-10-06] MEDS: ALPRAZolam 0.25mg tablet PO SCH (20:32)
[2021-10-06] MEDS: montelukast 10mg tablet PO SCH (20:32)
[2021-10-06] MEDS: Melatonin 3mg tablet PO SCH ×2 (20:32)
[2021-10-07] MEDS: gabapentin 100mg capsule PO SCH ×2 (00:26→08:17)
[2021-10-07 02:40] VITALS: BP 124/46
[2021-10-07] MEDS: ipratropium/albuterol 3ml nebule NEB SCH ×3 (03:19→11:56)
[2021-10-07 06:50] VITALS: BP 104/79
--- NOTE | 2021-10-07 06:56 | NUR ---
Patient in room PCU 3017. I have received report from Jacklyn YIN and had the opportunity to ask questions and assume patient care.
[2021-10-07] MEDS: budesonide 0.5mg/2ml UD nebule IH SCH (06:59)
[2021-10-07] MEDS: K and/or MAG REPLACEMENT MC SCH (08:00)
[2021-10-07] MEDS: cloNIDine 0.1 mg tablet PO SCH (08:00)
[2021-10-07] MEDS: furosemide 40mg/4ml inj IV SCH (08:12)
[2021-10-07] MEDS: CITALOpram 10mg tablet PO SCH (08:13)
[2021-10-07] MEDS: metoprolol tartrate 25mg tablet PO SCH (08:14)
[2021-10-07] MEDS: diltiazem CD 180mg cap (once-daily) PO SCH (08:14)
[2021-10-07] MEDS: ascorbic acid 500mg tablet PO SCH (08:14)
[2021-10-07] MEDS: lactobacillus rhamnosus 10,000 MMU CELLS/CAPSULE PO SCH (08:15)
[2021-10-07] MEDS: folic acid 1mg tablet PO SCH (08:15)
[2021-10-07] MEDS: multivitamins, therapeutics tablet PO SCH (08:15)
[2021-10-07] MEDS: aspirin 81mg, enteric-coated 1 TAB TABLET.DR PO SCH (08:15)
[2021-10-07] MEDS: cyanocobalamin 500mcg tablet PO SCH (08:16)
[2021-10-07] MEDS: ferrous sulfate 325mg tablet PO SCH (08:16)
[2021-10-07] MEDS: duloxetine 30mg CAPSULE.DR PO SCH (08:16)
[2021-10-07] MEDS: busPIRone 15mg tablet PO SCH (08:17)
[2021-10-07] MEDS: losartan 50mg tablet PO SCH (08:17)
[2021-10-07] MEDS: cefepime 1GM/NS ADD-VANTAGE 100 ML IV SCH (08:18)
[2021-10-07 08:26] LABS: BASOPHILS # (AUTO) 0.1 X10'3 (0-0.2); BASOPHILS % (AUTO) 0.6 % (0-1); EOSINOPHILS # (AUTO) 0.3 X10'3 (0-0.9); EOSINOPHILS % (AUTO) 2.9 % (0-6); HEMATOCRIT 26.2 % (35.0-45.0); HEMOGLOBIN 8.7 g/dl (12.0-16.0); LYMPHOCYTES # (AUTO) 1.5 X10'3 (1.1-4.8); MEAN CORPUSCULAR HEMOGLOBIN 30.8 PG (27.0-31.0); MEAN CORPUSCULAR HGB CONC 33.3 g/dL (33.0-36.5); MEAN CORPUSCULAR VOLUME 92.3 FL (78-98); MEAN PLATELET VOLUME 8.5 FL (7.4-10.4); MONOCYTES % (AUTO) 10.6 % (2-12); NEUTROPHILS # (AUTO) 6.5 X10'3 (1.8-7.7); NEUTROPHILS % (AUTO) 69.9 % (42-75); PLATELET COUNT 248 X10'3 (140-440); RED BLOOD COUNT 2.84 X10'6 (4.20-5.60); RED CELL DISTRIBUTION WIDTH 15.4 % (11.5-14.5); WHITE BLOOD COUNT 9.2 X10'3 (4.5-11.0)
[2021-10-07 08:32] LABS: ALBUMIN 2.2 G/DL (3.4-5.0); ANION GAP 4 (8-16); BLOOD UREA NITROGEN 27 MG/DL (7-18); BUN/CREATININE RATIO 18.5 (6.6-38.0); CALCIUM 8.1 MG/DL (8.5-10.1); CHLORIDE 102 MMOL/L (99-107); CREATININE 1.46 MG/DL (0.40-0.90); GLUCOSE 95 MG/DL (70-104); SODIUM 143 MMOL/L (135-145); TOTAL CARBON DIOXIDE 36.7 MMOL/L (24-32); eGFR 34 ML/MIN
--- NOTE | 2021-10-07 08:45 | NUR ---
PAGER ID: [phone] MESSAGE: Feng u [id number] re: [id number] Rufino Schmid Patient has critical potassium of 3.0, would you like to me to Add the replacement protocol thanks Feng.
[2021-10-07] MEDS ORDERED: potassium Cl 20 mEq SR tablet PO STA (10:11)
--- NOTE | 2021-10-07 11:56 | NUR ---
Attempted to call report to [facility] no one answered call, will attempt at a later time.
[2021-10-07 11:58] VITALS: BP 112/49
--- NOTE | 2021-10-07 12:40 | NUR ---
Attempted to call report to [facility] at this time. Was placed on hold indefinitely and hung up after 10 minutes. Will attempt report at a later time.
--- NOTE | 2021-10-07 12:54 | NUR ---
Patient discharged to [facility], still trying to call report with no success, patient left with all belongings and was taken with [facility].
--- NOTE | 2021-10-07 12:55 | NUR ---
Extended line taken out at discharge no bleeding noted, canula was intact upon inspection. Patient left with Low catheter in place at this time.
[2021-10-07 15:21] LABS: TOTAL CELLS COUNTED 100
[2021-10-07 15:22] LABS: PLATELET ESTIMATE NORMAL
[2021-10-14] MEDS ORDERED: ALBU2.5V12 NEB (04:28)
[2021-10-14] MEDS ORDERED: IPRA3AMP31 IH (04:32)
[2021-10-14] MEDS ORDERED: LOSA50TA64 PO (04:36)
[2021-10-14] MEDS ORDERED: MELA3TAB39 PO (04:36)
[2021-10-14] MEDS ORDERED: MAGN400O6 PO (04:36)
== END 2021-10-07 12:23 | DRG 871 ==
LOC: ER 14:12 → ED HOLD 16:13 → EDBEDREQ 09-29 11:53 → PCU 3S 09-29 12:09
PROVIDERS: ADMIT Internal Medicine; ATTEND Internal Medicine
PROC: 5A09357 Assistance with Respiratory Ventilation, Less than 24 Consecutive Hours, Continuous Positive Airway Pressure (ICD-10-PCS; 2021-09-28)
PROC: 0DB68ZX Excision of Stomach, Via Natural or Artificial Opening Endoscopic, Diagnostic (ICD-10-PCS; principal; 2021-10-06)
DX: A41.9 Sepsis, unspecified organism (principal); J96.21 Acute and chronic respiratory failure with hypoxia; J96.22 Acute and chronic respiratory failure with hypercapnia; J69.0 Pneumonitis due to inhalation of food and vomit; J44.1 Chronic obstructive pulmonary disease with (acute) exacerbation; B37.81 Candidal esophagitis; E03.9 Hypothyroidism, unspecified; E78.5 Hyperlipidemia, unspecified; G20 Parkinson's disease; Z20.822 Contact with and (suspected) exposure to COVID-19; D64.9 Anemia, unspecified; I10 Essential (primary) hypertension; Z66 Do not resuscitate; I27.81 Cor pulmonale (chronic); F32.A Depression, unspecified; M79.89 Other specified soft tissue disorders; F41.9 Anxiety disorder, unspecified; G62.9 Polyneuropathy, unspecified; G89.29 Other chronic pain; K21.9 Gastro-esophageal reflux disease without esophagitis; M54.9 Dorsalgia, unspecified; I48.0 Paroxysmal atrial fibrillation; R13.10 Dysphagia, unspecified; Y95 Nosocomial condition; Z79.01 Long term (current) use of anticoagulants; Z79.82 Long term (current) use of aspirin; Z79.899 Other long term (current) drug therapy; Z90.710 Acquired absence of both cervix and uterus; Z88.8 Allergy status to other drugs, medicaments and biological substances; Z87.440 Personal history of urinary (tract) infections
CPT/HCPCS: 36410; 36415; 36600; 43239; 71045; 76937; 80048; 80053; 81001; 82803; 83605; 83735; 83880; 84132; 84145; 84484; 85007; 85018; 85025; 87040; 87081; 87088; 87635; 88305; 92508; 92616; 93005; 93971; 94640; 94660; 94760; 96365; 96367; 96375; 97110; 97161; 97530; 99152; 99291; A4620; C1751; C9803; G0378; J0456; J0692; J0696; J1450; J1644; J1940; J2250; J2405; J2543; J2930; J3010; J3370; J3490; J7030; J7040